=== PATIENT | female | born 1995 ===

== ENCOUNTER 2024-09-20 09:00 | Inpatient (IN) ==
[2024-09-20 10:42] LABS: Hematocrit (blood only) 37.5 % (37.0-47.0); Hemoglobin 12.3 g/dl (12.0-16.0); Mean Corpuscular Hemoglobin 28.3 pg (25.0-34.0); Mean Corpuscular Hgb Conc 32.8 g/dL (32.0-36.0); Mean Corpuscular Volume 86.4 fL (80.0-100.0); Mean Platelet Volume 10.6 fL (9.4-12.4); Platelet Count 244 K/uL (130-400); RDW Standard Deviation 46.8 fL (36.4-46.3); Red Blood Count 4.34 M/uL (4.20-5.40); White Blood Count 11.39 K/ul (4.8-10.8)
[2024-09-20 10:44] LABS: Albumin Globulin Ratio 1.2 (0.9-2); Albumin Level 3.5 gm/dl (3.4-5.0); BUN Creatinine Ratio 12.9 (10-20); Bilirubin,Total 0.3 mg/dl (0.2-1.0); Creatinine Clr Calc Pharmacy 154.7 ml/min; Total Protein 6.5 gm/dl (6.0-8.3); Uric Acid 4.8 mg/dl (2.6-7.2)
[2024-09-20] MEDS: LABETALOL HCL IV 5 MG/ML 20ML IV STA ×3 (10:53→12:18)
[2024-09-20 10:54] LABS: Total Protein Urine Random 5.4 mg/dl (0-11.9)
--- NOTE | 2024-09-20 10:57 | History & Physical Report ---
Date of Service September 20, 2024 Assessment & Plan (1) History of section: Plan: Repeat with tubal planned (2) Gestational hypertension affecting second : Admission and Anticipated Discharge Date Admission Date: September 20, 2024 History of Present Illness Chief Complaint: previous with contractions Primary Care Provider: ERMIAS PCP 29 F [id number] sent from the office with contractions and gestational hypertetnsion Allergies Allergy/AdvReac Type Severity Reaction Status Date / Time No Known Allergies Allergy Verified 09/18/24 12:17 Home Medications Medication Instructions Recorded Confirmed Type Vitamin C With Iron 1 tab PO BID 09/18/24 09/20/24 History aspirin 81 mg capsule 81 mg PO DAILY 09/18/24 09/20/24 History calcium carbonate (Tums) 200 mg PO BID PRN Acid Reflux 09/18/24 09/20/24 History cyanocobalamin (vitamin B-12) 1,000 mcg PO DAILY 09/18/24 09/20/24 History 1,000 mcg tablet escitalopram oxalate 5 mg tablet 5 mg PO QAM 09/18/24 09/20/24 History (Lexapro) [id number] 1 mg 1 tab PO DAILY 09/18/24 09/20/24 History tablet Patient History Medical History Acid reflux during Anemia during ADHD Anxiety Borderline high blood pressure no cards>"sometimes bp is elevated" Surgical History History of postoperative nausea and vomiting History of section x 1 [place] teeth removed Family History Other No family history of adverse response to anesthesia Social History Smoking Status: Never smoker Second Hand Exposure: No; Hx Alcohol Use: No Hx Substance Use: No Preferred Language: Croatian Communication Ability: Effective Parking Lot Attendant And Cashier Required: No Beliefs That Will Affect Care: None marital status: Current Living Situation: Spouse Current Living Situation Comment: and son and step-daughter Other Information That Helps Us Care for You: No Feels Safe at Home: Yes Safety Concerns: Feels Safe At This Time Assistive Devices: Contacts and Glasses 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 History neg Review of Systems All systems reviewed & are unremarkable except as noted in HPI & below Physical Exam Constitutional: WD/WN, vitals as above Eyes: PERRL, conjunctivae normal, anicteric sclerae Respiratory: normal respiratory effort, lungs clear to auscultation Cardiovascular: Rate/Rhythm: regular rate and regular rhythm Gastrointestinal (Abdomen): Inspection/Auscultation: abdomen normal to inspection Musculoskeletal: Extremities: extremities normal to inspection Skin: no rashes, warm and dry Neurologic: patellar DTR's 2+ bilat, sensation intact Psychiatric: A+Ox3, euthymic affect Genitourinary: OB Exam Monitor Tracing: + external FHT monitor used, + external uterine monitor used, + category I and + normal FHT variability Results & Data Vital Signs (Past 12 Hours) Vital Signs Temp Pulse Resp BP O2 Del Method 09/20/24 10:51 86 168/97 H 09/20/24 10:38 18 09/20/24 10:38 37.6 C H 18 09/20/24 10:37 101 H 176/104 H 09/20/24 09:54 93 H 147/93 H 09/20/24 09:53 86 141/83 H 09/20/24 09:39 37.3 C 94 H 18 151/100 H Room Air 09/20/24 09:37 94 H 151/100 H 09/20/24 09:27 97 H 165/105 H Laboratory Results Laboratory Results - last 72 hr 09/20/24 09/20/24 10:09 10:10 WBC 11.39 H RBC 4.34 Hgb 12.3 Hct 37.5 MCV 86.4 MCH 28.3 MCHC 32.8 RDW Std Deviation 46.8 H RDW Coeff of Yan 15.0 H Plt Count 244 MPV 10.6 Sodium 140 Potassium 4.0 Chloride 110 H Carbon Dioxide 20 L Anion Gap 10 BUN 8 Creatinine 0.62 Est Cr Clr Drug Dosing 154.7 eGFR 123.55 BUN/Creatinine Ratio 12.9 Glucose 89 Uric Acid 4.8 Calcium 9.0 Total Bilirubin 0.3 Direct Bilirubin 0.0 AST 15 ALT 10 Alkaline Phosphatase 119 H Lactate Dehydrogenase 169 Total Protein 6.5 Albumin 3.5 Globulin 3.0 Albumin/Globulin Ratio 1.2 U Random Total Protein 5.4 Code Status & VTE Plan VTE Prophylaxis Plan VTE Prophylaxis will be ordered: No Monitoring External Monitor Cat 1
[2024-09-20 11:00] LABS: Creatinine Urine Random 51.4 mg/dl; Protein Creatinine Ratio Urine 0.1 (0-0.2)
[2024-09-20] MEDS ORDERED: LACTATED RINGER'S 1,000 ML IV SCH ×2 (11:00→14:15)
[2024-09-20] MEDS ORDERED: ONDANSETRON INJ 2 MG/ML 2 ML VIAL ONE (11:32)
[2024-09-20] MEDS ORDERED: MoRPHine SULFATE PF 1 MG/ML 10 ML AMP/VIAL ONE (11:32)
[2024-09-20] MEDS ORDERED: PHENYLEPHRINE 100MCG/ML 5ML SYR ONE (11:32)
[2024-09-20] MEDS ORDERED: fentaNYL citrate PF 100 MCG/2 ML VIAL ONE (11:32)
[2024-09-20] MEDS ORDERED: PHENYLEPHRINE HCL 25 MG/250 ML NSS IV ONE (11:32)
[2024-09-20] MEDS ORDERED: DEXAMETHASONE SOD INJ 4 MG/ML VIAL ONE (11:32)
[2024-09-20] MEDS: ACETAMINOPHEN 500 MG TAB PO SCH (11:52)
[2024-09-20] MEDS: MAG SULFATE 6GM BOLUS FROM BAG IV ONE (12:04)
[2024-09-20] MEDS: LACTATED RINGER'S 1,000 ML IV SCH (12:07)
--- NOTE | 2024-09-20 12:07 | Anesthesiology Consultation ---
Date of Service September 20, 2024 Assessment & Plan (1) Encounter for pre-operative examination: Chart Review Chart Review: Acceptable Risk for Surgery and Patient NOT seen in Pre Admission Testing Consults Requested none History Height/Weight Height: 5 ft 3 in Weight: 104.326 kg Allergies Allergy/AdvReac Type Severity Reaction Status Date / Time No Known Allergies Allergy Verified 09/18/24 12:17 Medications Home Medications Medication Instructions Recorded Confirmed Last Taken Vitamin C With Iron 1 tab PO BID 09/18/24 09/20/24 09/20/24 07:00 aspirin 81 mg capsule 81 mg PO DAILY 09/18/24 09/20/24 09/20/24 07:00 calcium carbonate (Tums) 200 mg PO BID PRN Acid Reflux 09/18/24 09/20/24 09/19/24 22:00 cyanocobalamin (vitamin B-12) 1,000 mcg PO DAILY 09/18/24 09/20/24 09/20/24 07:00 1,000 mcg tablet escitalopram oxalate 5 mg tablet 5 mg PO QAM 09/18/24 09/20/24 09/20/24 07:00 (Lexapro) [id number] 1 mg 1 tab PO DAILY 09/18/24 09/20/24 09/19/24 12:00 tablet Active Medications Generic Name Dose Route Start Last Admin Trade Name Freq PRN Reason Stop Dose Admin Acetaminophen 1,000 mg 09/20/24 06:00 09/20/24 11:52 Acetaminophen 500 Mg Tab PO 09/20/24 18:00 1,000 mg PREOP DIAMOND Administration Past Medical History Medical History Acid reflux during Anemia during ADHD Anxiety Borderline high blood pressure no cards>"sometimes bp is elevated" Exercise / Class Metabolic Activity II 4-5 Yardwork/Stairs/Walk up hill Past Family History Family History Other No family history of adverse response to anesthesia Past Surgical History Surgical History History of postoperative nausea and vomiting History of section x 1 [place] teeth removed Social History Smoking Status: Never smoker Hx Alcohol Use: No Hx Substance Use: No substance use type: does not use Physical Exam Vital Signs Last Vital Signs Temp 37.6 C H 09/20/24 10:38 Pulse 92 H 09/20/24 11:48 Resp 18 09/20/24 10:38 BP 138/94 09/20/24 11:48 O2 Del Method Room Air 09/20/24 09:39 Testing Laboratory Results 09/20/24 10:09 09/20/24 10:09 Blood Type O Positive 09/20/24 10:09 Antibody Screen NEGATIVE 09/20/24 10:09
[2024-09-20] MEDS: MAGNESIUM SULFATE / WTR 40 GM/1,000 ML BAG IV SCH (12:27)
[2024-09-20] MEDS: ONDANSETRON INJ 2 MG/ML 2 ML VIAL ONE (12:32)
[2024-09-20] MEDS: ONDANSETRON INJ 2 MG/ML 2 ML VIAL IV STA (12:49)
[2024-09-20] MEDS: ceFAZolin 3000MG 3,000 MG/72.5 ML BAG IV SCH (12:51)
[2024-09-20] MEDS: CITRIC ACID/SODIUM CITRATE 15 ML UDC PO SCH (12:53)
[2024-09-20] MEDS: OXYTOCIN 20 UNITS/1002ML LR IV ONE (13:40)
[2024-09-20] MEDS ORDERED: oxyCODONE HCL IR 5 MG TAB (IMMEDIATE RELEASE) PO PRN (13:44)
[2024-09-20] MEDS ORDERED: NALOXONE HCL 0.08 MG in SYRINGE 1.8 ML IV PRN (13:44)
[2024-09-20] MEDS ORDERED: ePHEDrine sulfate 50 MG/ML AMP IV PRN (13:44)
[2024-09-20] MEDS ORDERED: NALBUPHINE HCL INJ 10 MG/ML AMP IV PRN (13:44)
[2024-09-20] MEDS ORDERED: NALOXONE HCL 1 MG in SODIUM CHLORIDE 0.9% 1,000 ML IV PRN (13:44)
[2024-09-20] MEDS ORDERED: PROMETHAZINE 6.25 MG/50.25 ML BAG IV PRN (13:44)
[2024-09-20] MEDS ORDERED: HYDROmorphone INJ 0.5 MG/0.5 ML SYR IV PRN (13:44)
[2024-09-20] MEDS ORDERED: diphenhydrAMINE 50 MG/ML VIAL IV PRN (13:44)
[2024-09-20] MEDS ORDERED: NALOXONE HCL 0.4 MG/1 ML VIAL/CARP IV PRN (13:44)
[2024-09-20] MEDS ORDERED: DC INTRASPINAL MORPHINE SCH (13:45)
[2024-09-20] MEDS ORDERED: NO NARCOTICS OR SEDATIVES SCH (13:45)
[2024-09-20] MEDS ORDERED: diphenhydrAMINE 50 MG/ML VIAL ONE (14:05)
[2024-09-20] MEDS ORDERED: BENZOCAINE 20% SPRY 85 APPLN/85 GM CAN EXT PRN (14:14)
[2024-09-20] MEDS ORDERED: MAGNESIUM HYDROXIDE SUSP 30 ML UDC PO PRN (14:14)
[2024-09-20] MEDS ORDERED: CALCIUM CARBONATE 500 MG CHEWABLE TAB PO PRN ×2 (14:14→15:55)
[2024-09-20] MEDS ORDERED: SENNA 8.6 MG TAB PO PRN (14:14)
[2024-09-20] MEDS ORDERED: HYDROCORTISONE ACETATE 25 MG SUPP PR PRN (14:14)
[2024-09-20] MEDS: OXYTOCIN 20 UNITS/LR 1,002 ML IV SCH (14:30)
--- NOTE | 2024-09-20 14:39 | Anesthesiology Progress Note ---
Date of Service September 20, 2024 Anesthesia Post Procedure Vital Signs Vital Signs: Temp Pulse Resp BP Pulse Ox O2 Del Method 09/20/24 14:37 76 92 09/20/24 14:36 80 98 09/20/24 14:31 83 111/54 L 99 09/20/24 13:00 18 09/20/24 13:00 94 H 18 134/70 09/20/24 12:50 93 H 18 130/63 09/20/24 12:44 20 09/20/24 12:44 37.1 C 20 09/20/24 12:41 97 H 20 143/70 H 09/20/24 12:31 97 H 140/87 09/20/24 12:31 97 H 18 140/87 09/20/24 12:20 93 H 18 148/77 H 09/20/24 12:18 94 H 186/94 H 09/20/24 12:09 36.8 C 94 H 18 186/94 H 09/20/24 11:48 92 H 138/94 09/20/24 11:48 92 H 138/94 09/20/24 11:45 90 145/96 H 09/20/24 11:30 18 09/20/24 11:30 18 09/20/24 11:30 16 09/20/24 11:30 16 09/20/24 11:29 89 161/89 H 09/20/24 11:28 89 161/89 H 09/20/24 11:18 88 174/105 H 09/20/24 11:09 91 H 156/94 H 09/20/24 11:06 91 H 156/94 H 09/20/24 10:53 86 168/97 H 09/20/24 10:51 86 168/97 H 09/20/24 10:38 18 09/20/24 10:38 37.6 C H 18 09/20/24 10:37 101 H 176/104 H 09/20/24 09:54 93 H 147/93 H 09/20/24 09:53 86 141/83 H 09/20/24 09:39 37.3 C 94 H 18 151/100 H Room Air 09/20/24 09:37 94 H 151/100 H 09/20/24 09:27 97 H 165/105 H Transfer of Care Handoff Completed per policy Notes Mental Status: alert / awake / arousable and participated in evaluation Patient Amnestic to Procedure: No Nausea / Vomiting: adequately controlled Pain: adequately controlled Airway Patency, RR, SpO2: stable & adequate BP & HR: stable & adequate Hydration State: stable & adequate Neuraxial Anesthesia: was administered and sensory block is resolving Anesthetic Complications: no major complications apparent and Pt Satisfied with anesthetic care
[2024-09-20] MEDS: DIPHTHER/TETAN/PERTUS Vaccine (Tdap, Adol/Adult) 0.5mL IM ONE (14:52)
--- NOTE | 2024-09-20 14:52 | Post Operative Brief Note ---
Immediate Post Op Note Date of Surgery September 20, 2024 Pre & Post Diagnosis Operation Date: 09/20/24 13:30 Pre-Op Diagnosis: 1.Term elective repeat ceasaren section 2. Desires voluntary sterilzation 3. Pre eclampisa with severe features Post-Op Diagnosis: same as preoperative. I identified the patient and participated in the time-out.: Yes Procedure Operation Date: 09/20/24 13:30 Actual Procedures p Section in LD for LFC @ on 09/20/24 with bilateral tubal ligation and removal(Bilateral) - Madhav Lundberg MD Surgeon Madhav Lundberg MD Staff Counsel KAYODE Joya Estimated Blood Loss 629 Findings Consistent with Post-Op Diagnosis live female Apgars 8/9 weight 7 lbs. 14 oz. nuchal cord x1 Fluids LR 800 ml. Specimens Placenta bilateral fallopian tubes Drains Victor Catheter Anesthesia Type Spinal Complications none Disposition Accompanied Patient To Recovery: Yes Overlapping Procedure I was present for: the critical portions of procedure. I was immediately available: during the entire case. Back up surgeon: was not required during procedure.
[2024-09-20] MEDS: KETOROLAC 30 MG/ML VIAL IV SCH (14:53)
--- NOTE | 2024-09-20 15:10 | Operative Report ---
Post Operative Report Pre & Post Diagnosis Operation Date: 09/20/24 13:30 Pre-Op Diagnosis: 1.Term elective repeat ceasaren section 2. Desires voluntary sterilzation 3. Pre eclampisa with severe features Post-Op Diagnosis: same as preoperative. I identified the patient and participated in the time-out.: Yes Procedure Operation Date: 09/20/24 13:30 Actual Procedures p Section in LD for LFC @ on 09/20/24 with bilateral tubal ligation and removal(Bilateral) - Madhav Lundberg MD Surgeon Madhav Lundberg MD Help Desk Supervisor KAYODE Joya Estimated Blood Loss 629 Findings Consistent with Post-Op Diagnosis Live female vertex presentation Apgars 8 and 9 weight 7 pounds 14 ounces nuchal cord x 1 Fluids LR 800 mL Specimens 1 placenta 2 bilateral fallopian tubes Drains None Anesthesia Type Spinal Complications None Disposition Accompanied Patient To Recovery: Yes Indications Term elective repeat section, voluntary sterilization and preeclampsia with severe features Description of Procedure Under satisfactory spinal anesthesia the patient was prepped and draped in the usual sterile fashion. A timeout was then called. Antibiotics were given preop. A low Pfannenstiel incision was then made carrying the incision down through her prior incision into the abdominal cavity in successive layers without difficulty. Upon entering into the peritoneal cavity bladder flap was developed with sharp dissection using Metzenbaum scissors. The peritoneum was stretched bladder blade was then entered a low segment transverse incision over the lower uterine segment was made after a bladder flap was made. Delivery was accomplished from the vertex presentation with clear fluid noted upon rupture delivering a live female with a nuchal cord x 1 which was reduced at time of delivery of the head delayed cord clamping Apgars 8 and 9 weight 7 pounds 14 ounces. Cord blood was obtained placenta was then manually removed and submitted to pathology the uterus was then exteriorized ring forceps were placed on both right and left side of the uterus at the angles. The interior the uterus was cleaned of all clots and debris with a lap pad. The uterus was closed in a single layer closure with 0 Vicryl suture in a continuous interlocking fashion. Tubes ovaries bilaterally were found to be within normal limits. The patient was once more consented for a bilateral salpingectomy. Usi ng the hand-held LigaSure first the right and then the left tube were serially ligated from the pedicle without difficulty. This was then inspected and no active bleeding was noted. The uterus was placed back into the normal anatomical position. The muscle was then reapproximated with 2 [id number] 0 Vicryl sutures. The fascia was then reapproximated with 0 Vicryl suture in a continuous fashion. Subcuticular layer was then reapproximated with 3-0 plain suture interrupted. And the skin was then reapproximated with 4-0 Monocryl suture subcuticular stitch. Steri-Strips and Telfa were then applied to the wound. Clear urine was noted from the Victor total 225 mL. Total fluids 800 mL and QBL is 629 mL. The final sponge ,needle and instrument count were found to be correct and the patient was then placed supine on a stretcher and she was moved to the recovery room in stable condition. I attest to the content of the Intraoperative Record and any orders documented therein. Any exceptions are noted below. Please note that Sheridan Lord was needed to help provide retraction closure of the uterus and abdomen
[2024-09-20] MEDS: SIMETHICONE 80 MG CHEW PO SCH (17:23)
[2024-09-20] MEDS: ONDANSETRON INJ 2 MG/ML 2 ML VIAL IV PRN (19:01)
[2024-09-20] MEDS: ACETAMINOPHEN 325 MG TAB PO SCH (20:15)
[2024-09-20] MEDS: DOCUSATE SODIUM 100 MG CAP PO SCH (21:54)
[2024-09-20] MEDS: FERROUS FUMARATE/ASCORBIC ACID 65 MG CAPCR PO SCH (21:54)
--- OUTSIDE RECORDS SUMMARY | 2024-09-20 22:28 | External Medical Summary ---
Author Name Unknown Address Unknown Organization [id number] [id number] [place] [address] Laboratory Report Ordering Provider Test Date Status JEREMI VILLA 09/04/2024 09:10:00 Final Observation Date Value Abnormality Reference (Units ) Status Color of Urine by Auto 09/04/2024 09:10:00 Yellow Light Yellow, Yellow Final Clarity, Urine 09/04/2024 09:10:00 Clear Clear Final Glucose [Mass/volume] in Urine by Automated test strip 09/04/2024 09:10:00 Negative Negative (mg/dL) Final Bilirubin.total [Presence] in Urine by Automated test strip 09/04/2024 09:10:00 Negative Negative Final Ketones [Mass/volume] in Urine by Automated test strip 09/04/2024 09:10:00 Negative Negative (mg/dL) Final Specific gravity, Urine 09/04/2024 09:10:00 1.015 1.003-1.030 Final Hemoglobin [Presence] in Urine by Automated test strip 09/04/2024 09:10:00 Negative Negative Final pH, Urine 09/04/2024 09:10:00 7.0 5.0, 5.5, 6.0, 6.5, 7.0, 7.5 (units) Final Protein [Mass/volume] in Urine by Automated test strip 09/04/2024 09:10:00 Negative Negative (mg/dL) Final Urobilinogen, Urine 09/04/2024 09:10:00 0.2 0.2, 1.0 (mg/dL) Final Nitrite [Presence] in Urine by Automated test strip 09/04/2024 09:10:00 Negative Negative Final Leukocyte esterase [Presence] in Urine by Automated test strip 09/04/2024 09:10:00 Small Abnormal Negative Final Performing Location [facility] [place] [id number]
--- OUTSIDE RECORDS SUMMARY | 2024-09-20 22:28 | External Medical Summary | Summary of Care ---
Author Name Unknown Organization [facility] Address [address] [place] [address] Phone [phone] Care Team Providers Care Skin Drier Name Role Phone Unavailable Primary Care Provider Unavailabl e Reason for Visit * Reason Comments Return Visit Encounter Details Date Type Department Care Team (Late st Contact Info) Description 08/25/2024 8:30 AM EDT Office Visit Gynecology/Obstetric [facility] [address] [place] [id number] Ty Dodson MD [address] [place] [phone] Depression complicating , antepartum*; History of gestational hypertension; History of section complicating ; Obesity in , antepartum; Supervision of other normal , antepartum; Antepartum anemia complicating Allergies No known active allergiesdocumented as of this encounter (statuses as of 08/25/2024) Medications Medication Sig Dispensed Refills Start Date End Date Status Escitalopram Oxalate 5 MG Oral Tablet (Lexapro) Take 1 Tablet by mouth in the morning. Active 19 29-1 MG Oral Tablet Chewable Take by mouth. Active Methylphenidate HCl ER (OSM) 36 MG Oral Tablet Extended Release (Concerta) Take 1 Tablet by mouth in the morning. Active Aspirin 81 MG Oral Tablet Delayed Release Take 1 Tablet by mouth in the morning. Active Iron-Vitamin C 65-125 MG Oral Tablet (Vitron C)Indications:Antepart um anemia complicating Take 1 Tablet by mouth in the morning and 1 Tablet before bedtime. 60 Tablet 3 07/07/2024 Active Vitamin B-12 1000 MCG Oral Tablet (Cyanocobalamin)Indica tions:Antepartum anemia complicating Take 1 Tablet by mouth in the morning. 30 Tablet 5 08/24/2024 Active documented as of this encounter (statuses as of 08/25/2024) Active Problems Problem Noted Date Diagnosed Date Antepartum anemia complicating 024 Supervision of other normal , antepartu 03/30/2024 Last Assessment & Plan: -low risk Qnatal Obesity in , antepartum 03/06/2024 Overview: Pre gravid BMI: 35.4 Class 2 obesity Recommend low dose ASA daily 1 hour GTT ordered, not yet completed to date Baseline Preeclampsia Labs Lab Results Component Value Date/Time PLT 291 02/28/2024 03:27 PM PROTEIN/ CREATININE RATIO, URINE - [facility] 74 02/28/2024 03:32 PM Last Assessment & Plan: She presents for follow-up of growth secondary to class II obesity. She has a history of depression, history of gestational hypertension and previous C- section. Today's ultrasound notes the following: The estimated weight is appropriate for gestational age in the 56th percentile. The visualized anatomy is unremarkable in appearance. The ANTONIA is normal. Depression complicating , antepartum Overview: History of post depression in 2020 Currently on Lexapro 5mg daily Reports a stable mood in . Denies any suicidal or homicidal ideation. Reports she has a good support system at home. Last Assessment & Plan: -Mood stable, no acute concerns History of gestational hypertension 02/29/2024 Overview: History of gestational hypertension First , 2020, induced at 39 weeks Currently no BP medications Recommend daily low dose ASA Baseline Preeclampsia Labs Lab Results Component Value Date/Time PLT 291 02/28/2024 03:27 PM PROTEIN/ CREATININE RATIO, URINE - [facility] 74 02/28/2024 03:32 PM BP Readings from Last 5 Encounters: No data found for BP Last Assessment & Plan: CONSIDERATIONS: Explained to patient that in a woman who has always had normal blood pressures, gestational hypertension (GHTN) is defined as persistent elevations in her BP after 20 weeks gestation. Elevated BP is defined as greater than or equal to 140mmHg systolic or greater than 90mmHg diastolic on two separate occasions at least 4 hours apart after 20 weeks gestation. Explained to patient that women with hypertension during are at significantly increased risk for placental abruption, pre-eclampsia/eclampsia, delivery, gestational diabetes, growth restriction, stillbirth, delivery, hemorrhage, and maternal morbidity. These risks are related to the severity of the hypertension RECOMMENDATIONS: Recommend patient be followed clinically. Also recommend labwork with AST/ALT and platelets, and urine protein screen. If diagnosed with gestational hypertension recommend Maternal Medicine ultrasound for growth within 1 week of GHTN diagnosis and then every 4 weeks thereafter. Reviewed that GHTN, pre-eclampsia and HELLP are not preventable conditions. There is some evidence that daily ASA 81mg may decrease the risk for recurrence in patients with additional risk factors we recommend that proceed with starting this therapy at 13 weeks. Class 2 obesity 02/29/2024 Overview: Pre-gravid BMI 35 History of section complicating pregnan cy 02/29/2024 Overview: 2020: primary due to failure to progress 2023 plan: undecided Last Assessment & Plan: CONSIDERATIONS: Reviewed that patients with a history of a previous section are at increased risk in subsequent pregnancies for abnormal placentation (such as previa, acreta, increta, percreta), uterine rupture, abdominal adhesions (which increases the associated surgical risks of injury to adjacent organs, length of procedure, and increased blood loss), and other incision-related complications (such as hernia, rectal muscle diastasis). These risks increase linearly with the number of previous sections performed. carries a lower risk of hemorrhage and infection than delivery. It also generally involves a shorter hospital admission as well as a less painful and shorter recovery than delivery. The risks of uterine rupture are increased for at 0.2 to 1.5% with prior low transverse uterine incision and up to 10% with prior classical incision. In the event of uterine rupture there is a risk of maternal injury that may require a blood transfusion, hysterectomy, damage to nearby organs and even maternal . There is also a 10 to 25% risk of significant adverse sequelae which includes or permanent injury in 10/999 's. The chances of successful increases with any prior successful deliveries. RECOMMENDATIONS: Routine repeat section is recommended to be scheduled between 39-40 weeks gestation. As per [employer]'s 2010 practice bulletin (reaffirmed 2015) regarding offering of trial of labor after delivery, the risks and benefits should be discussed between the patient and her primary OB provider and ultimately agreed upon between these parties and documented as such. Any attempt at should be undertaken at a facility capable of emergent delivery. The following factors are NOT contraindications to offering a trial of labor after delivery: a. Two prior deliveries b. Suspected macrosomia c. Gestation beyond 40 weeks d. History of previous low vertical uterine incision e. Twin gestation (if only one prior ) f. One delivery with an unknown uterine scar type (unless there is a high clinical suspicion of a previous classical uterine incision) Induction of labor for maternal or indications is an option for women undergoing Trial of Labor After . Misoprostol should not be used for cervical ripening or induction of labor. Estimated Date of Delivery Comme nts Yes 09/29/2024 Based on last me nstrual period of 12/24/2023 documented as of this encounter (statuses as of 08/25/2024) Resolved Problems Problem Noted Date Diagnosed Date Resolved Date Abnormal GTT (glucose tolerance test) 04/01/2024 07/07/2024 Overview: Failed 1 hour GTT at 13 weeks. 3 hour GTT ordered. with 10 completed weeks gestation 03/07/2024 05/25/2024 History of positive PPD 02/29/2024 05/0 04/2024 Supervision of high risk pre gnancy in first trimester 02/29/2024 05/25/2024 documented as of this encounter (statuses as of 08/25/2024) Immunizations Name Administration Dates Next Due TDAP, Age 7 and older, IM (Adacel) 07/14/2024 documented as of this encounter Social History Tobacco Use Types Packs/Day Years Used Date Smoking Tobacco: Never Smokeless Tobacco: Never Alcohol Use Standard Drinks/Week Comments Not Currently 0 (1 standard drink = 0.6 oz pur e alcohol) Hunger Vital Sign Answer Date Recorded Within the past 12 months, y ou worried that your food would run out before you got the money to buy more. Never true 04/14/20 24 Within the past 12 months, t he food you bought just didn't last and you didn't have money to get more. Never true 04/14/2024 [place] Depression Scale Answer Date Recorded [place] Depression Scale Total 1 08/23/2024 The thought of harming myself has occurred to me . Never 08/23/2024 Childcare Answer Date Recorded Do you feel overwhelmed with taking care of a child, family member or friend? No 04/14/2024 Does your family need help f inding childcare? (Household - for ages 0-17 years) Not on file 04/14/2024 Clothing Answer Date Recorded Have you been unable to get clothing when it was really needed? No 04/14/2024 Is your family able to get c lothes or diapers when needed? (Household - for ages 0-17 years) Not on file 04/14/2024 Personal Safety Answer Date Recorded Do you feel unsafe or have concerns for your saf ety? No 04/14/2024 Do you have concerns for you r family's safety? (Household - for ages 0-17 years) Not on file 04/14/2024 Utilities Answer Date Recorded Do you have trouble paying y our heating, water, or electric bill? No 04/14/2024 Is your family able to pay t he heat, water, or electric bill? (Household - for ages 0-17 years) Not on file 04/14/2024 Does your family have access to good internet? (Household - for ages 0-17 years) Not on file 04/14/2024 Employment Status Answer Date Recorded Are you unemployed or without regular income? No 04/14/2024 Does the household have a re gular source of income? (Household - for ages 0-17 years) Not on file 04/14/2024 Social Connections Answer Date Recorded How often do you feel lonely or isolated from th ose around you? Never 04/14/2024 Financial Resource Strain Answer Date R ecorded Do you have any trouble payi ng for your medications, or do you think you might in the future? No 04/14/2024 Does your family have troubl e paying for medicine? (Household - for ages 0-17 years) Not on file 04/14/2024 Transportation Needs Answer Date Record ed READ ONLY Do you have troubl e getting a ride to medical visits or work? Never True 04/14/2024 Does your family have a hard time getting a ride to doctors visits? (Household - for ages 0-17 years) Not on file 04/14/2024 Has lack of transportation k ept you from medical appointments, meetings, work, or from getting things needed for daily living? Check all that apply. No 04/14/2024 Do you (or your family) have trouble finding or paying for a ride (transportation)? (Household - for ages 0-17 years) Not on file 04/14/2024 Housing Stability Answer Date Recorded Do you currently live in a s helter or have no steady place to sleep at night? No 04/14/2024 READ ONLY Do you think you a re at risk of becoming homeless? No 04/14/2024 Does your family worry about paying for your home or becoming homeless? (Household - for ages 0-17 years) Not on file 0 04/14/2024 Are you homeless or worried that you might be in the future? No 04/14/2024 Are you (or your family) allie eless or worried that you might be in the future? (Household - for ages 0-17 years) Not on file Food Insecurity Answer Date Recorded Do you need food for this week? No 04/14/2024 Are you able to get enough f ood for your family? (Household - for ages 0-17 years) Not on file 04/14/2024 Does your family need food t his week? (Household - for ages 0-17 years) Not on file 04/14/2024 Do you always have enough fo od for your family? (Household - for ages 0-17 years) Not on file 04/14/2024 Estimated Date of Delivery Comme nts Yes 09/29/2024 Based on last me nstrual period of 12/24/2023 Sex and Gender Information Value Date Recorded Sex Assigned at Female 02/10/2024 9:32 AM EDT Gender Identity Female 02/10/2024 9:32 AM EDT Sexual Orientation Straight 02/10/2024 9: 32 AM EDT Job Start Date Occupation Industry Not on file Not on file Not on file documented as of this encounter Last Filed Vital Signs Vital Sign Reading Time Taken Comments Blood Pressure 128/82 08/25/2024 8:58 AM EDT Pulse - - Temperature - - Respiratory Rate - - Oxygen Saturation - - Inhaled Oxygen Concentration - - Weight - - Height 160 cm (5' 3") 08/25/2024 8:58 AM EDT Body Mass Index - - documented in this encounter Progress Notes * Ty Dodson MD - 08/25/2024 9:11 AM EDT Pt doing well No complaints Stable BP today Hx of GHT Car for repeat c/sec on 09/27/24 * Sheela Velasquez LPN - 08/25/2024 8:56 AM EDT 35w0d Pt is here for repeat BP check documented in this encounter Plan of Treatment Upcoming Encounters Date Type Department Care Team (Late st Contact Info) Description 09/04/2024 8:30 AM EST Office Visit Gynecology/Obstetrics [facility] [address] [place] [phone] Ty Dodson MD [address] [place] [phone] 09/07/2024 8:00 AM EST Imaging [facility] [address] [place] [phone] 10/04/2024 10:30 AM EST Office Visit Gynecology/Obstetrics [facility] [address] [place] [address] [place], LarisaNEYDA Nunn [address] [place] [address] Health Maintenance Due Date Last Done Comments Depression Monitoring 2007 Hepatitis B Vaccine (1 of 3 - 19+ 3-dose series) 2014 COVID-19 Vaccine (1 - 2023-2 5 season) 2024 Influenza Vaccine (FLU shot) (#1) 2024 Pap Smear 02/27/2027 02/28/2024 DTap/Tdap Vaccines (2 - Td o r Tdap) 07/14/2034 07/14/2024 HPV (Gardasil) Vaccine Aged Out No lo nger eligible based on patient's age to complete this topic MENINGOCOCCAL (MENACTRA/MENVEO) Aged Out No longer eligible based on patient's age to complete this topic Pneumococcal Vaccine: Pediat rics (0 to 5 Years) and At-Risk Patients (6 to 64 Years) Aged Out No longer eligi ble based on patient's age to complete this topic documented as of this encounter Medical Devices Not on filedocumented as of this encounter Visit Diagnoses Diagnosis Depression complicating , antepartum- Primary Mental disorders of mother, antepartum History of gestational hypertension History of section complicating Previous delivery, unspecified as to episode of care or not applicable Obesity in , antepartum Obesity complicating , childbirth, or the puerperium, antepartum condition or complication Supervision of other normal , antepartum Antepartum anemia complicating Anemia, antepartum documented in this encounter
--- OUTSIDE RECORDS SUMMARY | 2024-09-20 22:28 | External Medical Summary | Summary of Care ---
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 Name Role Phone Unavailable Primary Care Provider Unavailabl e Encounter Details Date Type Department Care Team (Late st Contact Info) Description 09/07/2024 8:00 AM EST Office Visit [facility], [address] [address] Lacey Weaver, DO [address] [place], [place] [id number] Obesity in , antepartum*; Ultrasound for screening for growth restriction; 36 weeks gestation of Allergies No known active allergiesdocumented as of this encounter (statuses as of 09/07/2024) Medications Escitalopram Oxalate 5 MG Oral Tablet (Lexapro) [...] Iron-Vitamin C 65-125 MG Oral Tablet (Vitron C)Indications:Ant epartum anemia complicating Take 1 Tablet by mouth in the morning and 1 Tablet before bedtime. 60 Tablet 3 4 Active Vitamin B-12 1000 MCG Oral Tablet (Cyanocobalamin)I ndications:Antepa rtum anemia complicating Take 1 Tablet by mouth in the morning. 30 Tablet 5 Active documented as of this encounter (statuses as of 09/07/2024) Active Problems Problem Noted Date Diagnosed Date Antepartum anemia complicating 024 Supervision of other normal , antepartu m 03/30/2024 Assessment & Plan (05/15/2024 10:24 AM EDT): -low risk Qnatal Obesity in , antepartum 03/06/2024 Overview (03/06/2024): Pre gravid BMI: 35.4 Class 2 obesity Recommend low dose ASA daily 1 hour GTT ordered, not yet completed to date Baseline Preeclampsia Labs Lab Results Component Value Date/Time PLT 291 02/28/2024 03:27 PM PROTEIN/ CREATININE RATIO, URINE - [facility] 74 02/28/2024 03:32 PM Assessment & Plan (07/13/2024 9:12 AM EDT): She presents for follow-up of growth secondary to class II obesity. She has a history of depression, history of gestational hypertension and previous C- section. Today's ultrasound notes the following: The estimated weight is appropriate for gestational age in the 56th percentile. The visualized anatomy is unremarkable in appearance. The ANTONIA is normal. Assessment & Plan (05/15/2024 10:24 AM EDT): -Early 1-hr GCT 147, 3-hr OGTT 1/4 elevated -Repeat OGTT at 26-28 weeks Assessment & Plan (03/07/2024 12:29 PM EDT): CONSIDERATIONS: Discussed obstetrical risks associated with class II obesity (pre- BMI of 35 to 39.9) Reviewed that the accuracy of ultrasound at diagnosing anomalies is significantly decreased for women with an increased BMI. RECOMMENDATIONS: Recommend restricting weight gain during to 11-20 pounds. Patient should be referred for a nutrition consult. Recommend evaluation for signs and symptoms (snoring, excessive daytime sleepiness witnessed apnea or unexplained hypoxia) of obstructive sleep apnea. If any of these are present, referral to Sleep Medicine specialist for further evaluation should be considered. Recommend performing gestational diabetes mellitus screen now (if not performed at first visit) and repeat again at 26-28 weeks if early screen is normal. Recommend Maternal- Medicine ultrasound for anatomy at 20 weeks and for growth every 4 weeks thereafter. For patients with Class 2 obesity, we recommend weekly surveillance starting at 37 weeks. Depression complicating , antepartum Overview (03/07/2024): History of post depression in 2020 Currently on Lexapro 5mg daily Reports a stable mood in . Denies any suicidal or homicidal ideation. Reports she has a good support system at home. Assessment & Plan (05/15/2024 10:43 AM EDT): -Mood stable, no acute concerns Assessment & Plan (03/07/2024 12:29 PM EDT): ANXIETY AND DEPRESSION CONSIDERATIONS: Untreated maternal anxiety and depression may be associated with an increased risk of multiple poor obstetrical outcomes including miscarriages, low weight, and delivery. Women with a history of anxiety or depression are at risk for recurrence both during and/or the period. Studies of first-trimester SSRI exposure do not demonstrate consistent data to support an increased risk for structural malformations. Anti-anxiety or depression medications have been associated with transient effects (withdrawal syndrome). RECOMMENDATIONS: Mental illness can and should be treated during when the benefits of treatment outweigh potential risks. Referral to behavioral health services as clinically indicated. History of gestational hypertension 02/29/2024 Overview (03/07/2024): History of gestational hypertension First , 2020, induced at 39 weeks Currently no BP medications Recommend daily low dose ASA Baseline Preeclampsia Labs Lab Results Component Value Date/Time PLT 291 02/28/2024 03:27 PM PROTEIN/ CREATININE RATIO, URINE - [facility] 74 02/28/2024 03:32 PM BP Readings from Last 5 Encounters: No data found for BP Assessment & Plan (03/07/2024 12:30 PM EDT): CONSIDERATIONS: Explained to patient that in a [...] at 13 weeks. Class 2 obesity 02/29/2024 Overview (02/29/2024): Pre-gravid BMI 35 History of section complicating pregnan cy 02/29/2024 Overview (03/07/2024): 2020: primary due to failure to progress 2023 plan: undecided Assessment & Plan (03/07/2024 12:50 PM EDT): CONSIDERATIONS: Reviewed that patients with a history [...] scheduled between 39-40 weeks gestation. As per [employer]'s 2010 practice [...] as of this encounter (statuses as of 09/07/2024) Resolved Problems Problem Noted Date Diagnosed Date Resolved Date Abnormal GTT (glucose tolerance test) 04/01/2024 07/07/2024 Overview (04/01/2024): Failed 1 hour GTT at 13 weeks. 3 hour GTT ordered. with 10 completed weeks gestation 03/07/2024 05/25/2024 History of positive PPD 02/29/2024 05/0 04/2024 Supervision of high risk pre gnancy in first trimester 02/29/2024 05/25/2024 documented as of this encounter (statuses as of 09/07/2024) Immunizations Name Administration Dates Next Due TDAP, [...] money to get more. Never true 04/14/2024 [place] Depression Scale Answer Date Recorded [place] Depression Scale Total 1 08/23/2024 The thought [...] Assigned at Female 02/10/2024 9:32 AM EDT Legal Sex Female 9:44 AM EDT Gender Identity Female 02/10/2024 9:32 AM EDT Sexual Orientation Straight 02/10/2024 9: 32 AM EDT documented as of this encounter Progress Notes * Lacey Weaver DO - 09/07/2024 1:31 PM EST Kalie presented today at 36w6d for an ultrasound for the following indications: Obesity in , antepartum Ultrasound for screening for growth restriction 36 weeks gestation of Ultrasound summary: Patient presented at 36w 6d for growth assessment. Normal growth with EFW 3143 g at 64%ile. Normal ANTONIA at 11.9 cm. Cephalic presentation. I reviewed the ultrasound images. Kalie was given the opportunity to meet with me if she had any questions. Please refer to the ultrasound report for additional details about today's ultrasound examination. RECOMMENDATIONS: Follow up with MFM for ultrasound as clinically indicated. Weekly NSTs. See prior formal MFM consultation note. Thank you for allowing us to participate in the care of this patient. Please call with any questions. Lacey Weaver DO 09/07/2024 1:31 PM documented in this encounter Plan of Treatment Upcoming Encounters Date Type Department Care Team (Late st Contact Info) Description 09/13/2024 7:45 AM EST Office Visit Gynecology/Obstetrics [facility] [address] [place] [address] Sheridan Lord PA-C [address] [place] [phone] 10/04/2024 10:30 AM EST Office Visit Gynecology/Obstetrics [facility] [address] [place] [address] Larisa Bartlett CRNP [address] [place] [phone] Health Maintenance Due Date Last Done Comments [...] as of this encounter Visit Diagnoses Diagnosis Obesity in , antepartum- Primary Obesity complicating , childbirth, or the puerperium, antepartum condition or complication History of gestational hypertension Depression complicating , antepartum Mental disorders of mother, antepartum History of section complicating Previous delivery, unspecified as to episode of care or not applicable Supervision of high risk in first trimester Unspecified high-risk with 10 completed weeks gestation Obesity in , antepartum- Primary Obesity complicating , childbirth, or the puerperium, antepartum condition or complication Class 2 obesity Supervision of other normal , antepartum History of gestational hypertension Depression complicating , antepartum Mental disorders of mother, antepartum 20 weeks gestation of state, incidental Encounter for anatomic survey Obesity in , antepartum- Primary Obesity complicating , childbirth, or the puerperium, antepartum condition or complication Class 2 obesity History of section complicating Previous delivery, unspecified as to episode of care or not applicable History of gestational hypertension Obesity in , antepartum- Primary Obesity complicating , childbirth, or the puerperium, antepartum condition or complication Ultrasound for screening for growth restriction screening for growth retardation using ultrasonics 36 weeks gestation of state, incidental documented in this encounter
--- OUTSIDE RECORDS SUMMARY | 2024-09-20 22:28 | External Medical Summary ---
Author Name Unknown Address Unknown Organization K01:LAB[facility]AT[facility] - [address] [place] [address] Ave. [address] [place] [id number] Laboratory Report Ordering Provider Test Date Status PEGGY HELLER 08/23/2024 17:15:08 Final Observation Date Value Abnormality Reference (Units ) Status WBC, Total 08/23/2024 17:15:08 10.32 4.00-10.8 0 (K/uL) Final RBC 08/23/2024 17:15:08 3.87 3.85-5.15 (M/uL) Final Hemoglobin 08/23/2024 17:15:08 11.1 Below low normal 12 .0-15.3 (g/dL) Final Anemia reflex testing trigge rs on a HGB < 12.0 for Females and HGB < 13.0 for Males in accordance with the WHO Anemia Guidelines
Anemia reflex testing triggers on a HGB < 12.0 for Females and HGB < 13.0 for Males in accordance with the WHO Anemia Guidelines HCT 08/23/2024 17:15:08 35.1 Below low normal 36. 0-45.2 (%) Final MCV 08/23/2024 17:15:08 90.7 81.5-97.5 (fL) Final MCH 08/23/2024 17:15:08 28.7 27.0-34.0 (pg) Final MCHC 08/23/2024 17:15:08 31.6 32.0-36.0 (g/dL) Final RDW 08/23/2024 17:15:08 14.7 11.5-15.5 (%) Final Platelets 08/23/2024 17:15:08 263 140-400 (K /uL) Final MPV 08/23/2024 17:15:08 11.1 6.6-11.1 ( fL) Final Nucleated erythrocytes/100 leukocytes [Ratio] in Blood by Automated count 08/23/2024 17:15:08 0 <=0 (/100 WBCs) Final Performing Location LAB[facility] - [address] [facility] [address]
--- OUTSIDE RECORDS SUMMARY | 2024-09-20 22:28 | External Medical Summary | Summary of Care ---
Author Name Unknown Organization [facility] Address [address] [address] Phone [phone] Care Team Providers Care Cotton Opener Name Role Phone Unavailable Primary Care Provider Unavailabl e Encounter Details Date Type Department Care Team (Late st Contact Info) Description 08/24/2024 Telephone Gynecology/Obstetrics [facility] [address] [facility] [place] [address] Perri Squires PA-Karen [address] [facility] [place] [address] Allergies No known active allergiesdocumented as of this encounter (statuses as of 08/24/2024) Medications Medication Sig Dispensed Refills Start Date [...] as of this encounter (statuses as of 08/24/2024) Active Problems Problem Noted Date Diagnosed Date Antepartum anemia complicating 024 Supervision of other normal , antepartu m 03/30/2024 Last Assessment & Plan: -low risk [...] scheduled between 39-40 weeks gestation. As per [employer]'s 2010 practice [...] as of this encounter (statuses as of 08/24/2024) Resolved Problems Problem Noted Date Diagnosed Date Resolved Date Abnormal GTT (glucose tolerance test) 04/01/2024 07/07/2024 Overview: Failed 1 hour GTT at 13 weeks. 3 hour GTT ordered. with 10 completed weeks gestation 03/07/2024 05/25/2024 History of positive PPD 02/29/2024 05/0 04/2024 Supervision of high risk pre gnancy in first trimester 02/29/2024 05/25/2024 documented as of this encounter (statuses as of 08/24/2024) Immunizations Name Administration Dates Next Due TDAP, [...] money to get more. Never true 04/14/2024 [place] Depression Scale Answer Date Recorded [place] Depression Scale Total 1 08/23/2024 The thought [...] on file documented as of this encounter Miscellaneous Notes * Telephone Encounter - Hilda Flaherty LPN - 08/24/2024 10:54 AM EDT ----- Message from Perri Squires sent at 08/24/2024 10:22 AM EDT ----- Please inform patient her recent CBC is continuing to show anemia. Her med list shows she is currently prescribed iron supplementation twice daily. Is she taking this as prescribed? If she is taking BID, please have her increase to TID. Her vitamin B12 is also low. I have sent supplementation to the [facility] in [place] for her to take once daily. We will plan to re-check levels in 4 weeks for improvement. Thanks! Perri Squires PA-C documented in this encounter Plan of Treatment Upcoming Encounters Date Type Department Care Team (Late st Contact Info) Description 08/25/2024 8:30 AM EDT Office Visit Gynecology/Obstetrics [facility]arr[facility]ie [facility] [address] [place] [address] Ty Dodson MD [address] [place] [phone] 09/04/2024 8:30 AM EST Office Visit Gynecology/Obstetrics Zackerycarlie Canaless [address] [place] [address] Ty Dodson MD [address] [place] [address] 09/07/2024 8:00 AM EST Imaging Maternal Medicine Imaging, [facility] [address] [place] [phone] 10/04/2024 10:30 AM EST Office Visit Gynecology/Obstetrics Zackerycarlie Bryan [address] [place] [address] BackerLarisa CRNP [address] [place] [address] Health Maintenance Due Date Last Done Comments [...]
--- OUTSIDE RECORDS SUMMARY | 2024-09-20 22:28 | External Medical Summary | Summary of Care ---
Author Name Unknown Organization [facility] Address [address] [facility] [address] Phone [phone] Care Team Providers Care Business Development Executive Name Role Phone Unavailable Primary Care Provider Unavailabl e Reason for Visit * Reason Comments Return Visit Pre-Op Testing Encounter Details Date Type Department Care Team (Late st Contact Info) Description 09/04/2024 8:30 AM EST Office Visit Gynecology/Obstetric [facility] [address] [place] [address] Ty Dodson MD [address] [place] [address] Depression complicating , antepartum*; History of gestational hypertension; History of section complicating ; Obesity in , antepartum; Supervision of other normal , antepartum; Antepartum anemia complicating Allergies No known active allergiesdocumented as of this encounter (statuses as of 09/04/2024) Medications Escitalopram Oxalate 5 MG Oral Tablet [...] mouth in the morning. 30 Tablet 5 4 Active documented as of this encounter (statuses as of 09/04/2024) Active Problems Problem Noted Date Diagnosed Date [...] scheduled between 39-40 weeks gestation. As per [employer]'s 2010 practice [...] as of this encounter (statuses as of 09/04/2024) Resolved Problems Problem Noted Date Diagnosed Date Resolved Date Abnormal GTT (glucose tolerance test) 04/01/2024 07/07/2024 Overview (04/01/2024): Failed 1 hour GTT at 13 weeks. 3 hour GTT ordered. with 10 completed weeks gestation 03/07/2024 05/25/2024 History of positive PPD 02/29/2024 05/0 04/2024 Supervision of high risk pre gnancy in first trimester 02/29/2024 05/25/2024 documented as of this encounter (statuses as of 09/04/2024) Immunizations Name Administration Dates Next Due TDAP, [...] money to get more. Never true 04/14/2024 [place] Depression Scale Answer Date Recorded [place] Depression Scale Total 1 08/23/2024 The thought [...] AM EDT documented as of this encounter Last Filed Vital Signs Vital Sign Reading Time Taken Comments Blood Pressure 128/88 09/04/2024 8:56 AM EST Pulse - - Temperature 36.5 C (97.7 F) 09/04/2024 8:56 AM ES T Respiratory Rate - - Oxygen Saturation - - Inhaled Oxygen Concentration - - Weight - - Height - - Body Mass Index - - documented in this encounter Progress Notes * Ty Dodson MD - 09/04/2024 9:15 AM EST Pt doing well No complaints Stable BP today Hx of GHT Preop H&P done today documented in this encounter H&P Notes * Ty Dodson MD - 09/04/2024 9:18 AM EST [address] [address] Appt line [phone] Kalie Rosales is a 29 year old year old year old at 36w3d Patient is . Estimated Date of Delivery: 09/29/24 Pt is s/p c/sec for gestational hypertension 3 years ago Wishes to have repeat section and permanent sterilization Patient is here for preop appointment OB History Para Term AB Living 2 1 1 0 0 1 SAB IAB Ectopic Multiple Live Births 0 0 0 0 1 # Outcome Date GA Lbr Goldy/2nd Weight Sex Type Anes PTL Lv 2 Current 1 Term 06/06/21 39w0d 3.388 kg (7 lb 7.5 oz) M CS-LTranv EPI NATHAN Comments: Induced at 39w Complications: Failure to Progress in Second Stage, History of gestational hypertension Obstetric Comments 2020, 2023 FOB #1: Jaswant, age 30, healthy, has one other child 11yo, healthy Date Labor Sex Delivery Anesth Del Comments GA Length Weight Type 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 Denies h/o STDs and abnormal Paps. Her past medical/surgical histories and current medications are recorded in the electronic record. Past Surgical History: Procedure Laterality Date DENTAL SURGERY PROCEDURE NEC MD DELIVERY ONLY 2020 Family History Problem Relation Name Age of Onset Other (Type 2 diabetes) Mother Hypertension Mother Anxiety Disorder Father Hypertension Brother Hypertension Brother No Known Problems Brother No Known Problems Brother History Social History Socioeconomic History Marital status: Spouse name: Not on file Number of children: Not on file Years of education: Not on file Highest education level: Not on file Occupational History Not on file Tobacco Use Smoking status: Never Smokeless tobacco: Never Substance and Sexual Activity Alcohol use: Not Currently Drug use: Never Sexual activity: Yes Partners: Male Other Topics Concern Not on file Social History Narrative Not on file Social Needs Financial Resource Strain: Low Risk (04/14/2024) Financial Resource Strain Do you have any trouble paying for your medications, or do you think you might in the future? (Adult - for ages 18 years and over): No Does your family have trouble paying for medicine? (Household - for ages 0-17 years): Not on file Food Insecurity: No Food Insecurity (04/14/2024) Food Insecurity Do you need food for this week? (Adult - for ages 18 years and over): No Are you able to get enough food for your family? (Household - for ages 0-17 years): Not on file Does your family need food this week? (Household - for ages 0-17 years): Not on file Do you always have enough food for your family? (Household - for ages 0-17 years): Not on file Transportation Needs: No Transportation Needs (04/14/2024) Transportation Needs Do you have trouble getting a ride to medical visits or work? (Adult - for ages 18 years and over):Never True Does your family have a hard time getting a ride to doctors visits? (Household - for ages 0-17 years): Not on file Has lack of transportation kept you from medical appointments, meetings, work, or from getting things needed for daily living? Check all that apply. (Adult - for ages 18 years and over): No Do you (or your family) have trouble finding or paying for a ride (transportation)? (Household - for ages 0-17 years): Not on file Social Connections: Socially Integrated (04/14/2024) Social Connections How often do you feel lonely or isolated from those around you? (Adult - for ages 18 years and over): Never Housing Stability: Low Risk (04/14/2024) Housing Stability Do you currently live in a custodial or have no steady place to sleep at night? (Adult - for ages 18 years and over): No Do you think you are at risk of becoming homeless? (Adult - for ages 18 years and over): No Does your family worry about paying for your home or becoming homeless? (Household - for ages 0-17 years): Not on file Are you homeless or worried that you might be in the future? (Adult - for ages 18 years and over): No Are you (or your family) homeless or worried that you might be in the future? (Household - for ages0-17 years): Not on file Physical Exam: BP 128/88 | Temp 36.5 C (97.7 F) | LMP 12/24/2023 CV: S1, S2. Regular rate and Rhythm Lungs: Clear to auscultation bilaterally. Abdomen: Soft Extremities: Soft non tender calves bilaterally. A/P: 29 year old year old at term Prior c/sec wishes to have repeat c/sec with bilateral salpingectomy We have discussed the risk alternatives and complications of surgery including more surgery to correct complication,risk of anesthesia,infection,damage to internal organs and . We have also discussed the possibility that pt's present situation may not change. Pt is aware and wishes to proceed to surgery. Consent is signed Ty Dodson MD 09/04/2024 9:18 AM documented in this encounter Plan of Treatment Upcoming Encounters Date Type Department Care Team (Late st Contact Info) Description 09/07/2024 8:00 AM EST Imaging Maternal Medicine Imaging, Scott Canaless [address] [place] [address] 09/07/2024 8:00 AM EST Office Visit Automobile Salesman Obstetrics Maternal Medicine, [facility] [address] [place] [address] Lacey Weaver, DO [address] [place] [address] 09/13/2024 7:45 AM EST Office Visit Gynecology/Obstetrics [facility] [address] [facility] [place] [address] Sheridan Lord PA-C [address] [place] [address] 10/04/2024 10:30 AM EST Office Visit Gynecology/Obstetrics Reggie [facility] [address] [place] [address] Larisa Bartlett CRNP [address] [place] [address] Pending Results Name Type Priority Associated Diagnoses Date /Time GROUP B STREP CULTURE/PCR Lab Routine Obesity in , antepartum 09/04/2024 9:47 AM EST Health Maintenance Due Date Last Done Comments Depression Monitoring 2007 Hepatitis B Vaccine (1 of 3 - 19+ 3-dose series) 2014 COVID-19 Vaccine (2023-2 5 season) 2024 Influenza Vaccine (FLU shot) [...] Not on filedocumented as of this encounter Procedures Procedure Name Priority Date/Time Associated Diagnosis Comments URINALYSIS OBSTETRICS, POINT OF CARE [facility] 09/04/2024 9:10 AM EST documented in this encounter Results * (ABNORMAL) URINALYSIS OBSTETRICS, POINT OF CARE (09/04/2024 9:10 AM EST) Color, Urine Yellow Light Yellow, Yellow 09/04/2024 9:13 AM EST [facility] [place] [facility] Clarity, Urine Clear Clear 09/04/2024 9:13 AM EST [facility] [place] [facility] Glucose, Urine Negative Negative mg/dL 09/04/2024 9:13 AM EST [facility] [place] [facility] Bilirubin, Urine Negative Negative 09/04/2024 9:13 AM EST [facility] Ketone, Urine Negative Negative mg/dL 09/04/2024 9:13 AM EST [facility] Specific [place], Urine 1.015 1.003 - 1.030 09/04/2024 9:13 AM EST [facility] Blood, Urine Negative Negative 09/04/2024 9:13 AM EST [facility] [place] [facility] pH, Urine 7.0 5.0, 5.5, 6.0, 6.5, 7.0, 7.5 units 09/04/2024 9:13 AM EST [facility] [place] [facility] Protein, Urine Negative Negative mg/dL 09/04/2024 9:13 AM EST [facility] Urobilinogen, Urine 0.2 0.2, 1.0 mg/dL 09/04/2024 9:13 AM EST [facility] Nitrite, Urine Negative Negative 09/04/2024 9:13 AM EST [facility] Esterase, Urine Small(A) Negative 09/04/2024 9:13 AM EST [facility] Urine 09/04/2024 9:10 AM EST 09/04/2024 9:13 AM EST us Ty Dodson MD LAB POINT OF CARE TE ST DOCKED DEVICE UNSOLICITED RESULTS Final Result [facility] [place] [facility] [address] [place] [id number] documented in this encounter Visit Diagnoses Diagnosis Obesity in [...] or not applicable History of gestational hypertension Depression complicating , antepartum- Primary Mental disorders of mother, antepartum History of gestational hypertension History of section complicating Previous delivery, unspecified as to episode of care or not applicable Obesity in , antepartum Obesity complicating , childbirth, or the puerperium, antepartum condition or complication Supervision of other normal , antepartum Antepartum anemia complicating Anemia, antepartum documented in this encounter"
--- OUTSIDE RECORDS SUMMARY | 2024-09-20 22:28 | External Medical Summary | Summary of Care ---
Author Name Unknown Organization [facility] Address [address] [facility] [place] [address] Phone [phone] Care Team Providers Care Tint Layer Name Role Phone Unavailable Primary Care Provider Unavailabl e Reason for Visit * Reason Comments Return Visit Non Stress Test Encounter Details Date Type Department Care Team (Late st Contact Info) Description 09/13/2024 7:45 AM EST Office Visit Gynecology/Obstetric s Reggie [facility] [address] [place] [address] Sheridan Lord PA-C [address] [place] [address] Supervision of other normal , antepartum*; Depression complicating , antepartum; History of gestational hypertension; History of section complicating ; Obesity in , antepartum; Antepartum anemia complicating Allergies No known active allergiesdocumented as of this encounter (statuses as of 09/13/2024) Medications Escitalopram Oxalate 5 MG Oral Tablet [...] as of this encounter (statuses as of 09/13/2024) Active Problems Problem Noted Date Diagnosed Date [...] scheduled between 39-40 weeks gestation. As per [place] [employer]'s 2010 practice [...] as of this encounter (statuses as of 09/13/2024) Resolved Problems Problem Noted Date Diagnosed Date Resolved Date Abnormal GTT (glucose tolerance test) 04/01/2024 07/07/2024 Overview (04/01/2024): Failed 1 hour GTT at 13 weeks. 3 hour GTT ordered. with 10 completed weeks gestation 03/07/2024 05/25/2024 History of positive PPD 02/29/2024 05/0 04/2024 Supervision of high risk pre gnancy in first trimester 02/29/2024 05/25/2024 documented as of this encounter (statuses as of 09/13/2024) Immunizations Name Administration Dates Next Due TDAP, [...] money to get more. Never true 04/14/2024 [place] Depression Scale Answer Date Recorded [place] Depression Scale Total 1 08/23/2024 The thought [...] Sign Reading Time Taken Comments Blood Pressure - - Pulse - - Temperature - - Respiratory Rate - - Oxygen Saturation - - Inhaled Oxygen Concentration - - Weight 107.4 kg (236 lb 12.8 oz) 09/13/2024 8:12 AM EST Height - - Body Mass Index 41.95 08/25/2024 8:58 AM EDT documented in this encounter Progress Notes * Sheridan Lord PA-C - 09/13/2024 8:19 AM EST 37w5d Woke up in middle of night to use restroom. Peed, was going to let dogs out and felt small isma about quarter size into underwear. It was cleared. She smelled it and didn't smell like urine. Happenedagain after peeing later in the night. Similar appearence. Has peed again but has not reoccurred. Does not feel continuous leaking. Having some mild contractions. Baby is active. No bleeding. ASSESSMENT assessment with Non-stress Test completed on 09/13/2024 at 37.5 weeks gestation for indication of Class 2 obesity heart baseline: 130 bpm Variability: Moderate Decelerations: absent Accelerations: present Contractions: Present q 7-10 minutes NST start time: 09:02 NST stop time: 09:42 NST strip reviewed, interpreted, and approved by OB provider, Sheridan Lord PA-C. NST strip stored in clinic storage file Pelvic exam: External genitalia and vagina anatomy within normal limits, cervix visually close, scant blood and discharge noted in vagina with insertion of speculum, limited visualization with nulliparous spec, it was removed and medium spec reinserted. Blood noted on posterior ectocervix, dried with scopet. No blood from os. No LOF with valsalva, cervix visually closed. ROM plus collected. BME: cl/thick TE to patient after visit. Reviewed ROM plus negative. Labor precautions given. Call with any LOF, VB, regular contractions, decreased FM (<10 movements in 2 hours). RTC in 1 week CALIT/NIDA Lord PA-C * Noreen Landeros CMA - 09/13/2024 8:12 AM EST 37w5d NIDA/NST [place] a small gush of fluid last night after using the restroom. Denies contractions. documented in this encounter Plan of Treatment Upcoming Encounters Date Type Department Care Team (Late st Contact Info) Description 09/20/2024 9:15 AM EST Office Visit Gynecology/Obstetrics [facility] [address] [place] [address] Ty Dodson MD [address] [place] [address] 10/04/2024 10:30 AM EST Office Visit Gynecology/Obstetrics [facility] [address] [place] [address] BackerLarisa CRNP [address] [place] [address] Health Maintenance Due Date Last Done Comments [...] Procedure Name Priority Date/Time Associated Diagnosis Comments RUPTURE OF MEMBRANE STAT 09/13/2024 9:06 AM EST Supervision of other normal , antepartum documented in this encounter Results * RUPTURE OF MEMBRANE (09/13/2024 9:06 AM EST) Rupture of Membrane Negative Negative 09/13/2024 9:30 AM EST [facility] Swab Specimen from wound / Unknown 09/13/2024 9:06 AM EST 09/13/2024 9:06 AM EST Sheridan Lord PA-C LAB FLUID AND STOOL ORDERABL ES Final Result [facility] [address] [facility] [place] [address] documented in this encounter Visit Diagnoses Diagnosis [...] or not applicable History of gestational hypertension Supervision of other normal , antepartum- Primary Depression complicating , antepartum Mental disorders of mother, antepartum History of gestational hypertension History of section complicating Previous delivery, unspecified as to episode of care or not applicable Obesity in , antepartum Obesity complicating , childbirth, or the puerperium, antepartum condition or complication Antepartum anemia complicating Anemia, antepartum documented in this encounter
--- OUTSIDE RECORDS SUMMARY | 2024-09-20 22:28 | External Medical Summary | Summary of Care ---
Author Name Unknown Organization [facility] Address [address] [facility] [place] [address] Phone [phone] Care Team Providers Care Psych Tech Name Role Phone Unavailable Primary Care Provider Unavailabl e Reason for Visit * Reason Comments Return Visit Encounter Details Date Type Department Care Team (Late st Contact Info) Description 08/23/2024 4:30 PM EDT Office Visit Gynecology/Obstetric s Reggie Adams [address] [place] [address] Sheridan Lord PA-C [address] [place] [address] Supervision of other normal , antepartum*; Depression complicating , antepartum; History of gestational hypertension; History of section complicating ; Obesity in , antepartum; Antepartum anemia complicating ; Elevated BP without diagnosis of hypertension Allergies No known active allergiesdocumented as of this encounter (statuses as of 08/23/2024) Medications Medication Sig Dispensed Refills Start Date [...] before bedtime. 60 Tablet 3 07/07/2024 Active documented as of this encounter (statuses as of 08/23/2024) Active Problems Problem Noted Date Diagnosed Date [...] scheduled between 39-40 weeks gestation. As per [employer]'s 2010 practice [...] as of this encounter (statuses as of 08/23/2024) Resolved Problems Problem Noted Date Diagnosed Date Resolved Date Abnormal GTT (glucose tolerance test) 04/01/2024 07/07/2024 Overview: Failed 1 hour GTT at 13 weeks. 3 hour GTT ordered. with 10 completed weeks gestation 03/07/2024 05/25/2024 History of positive PPD 02/29/2024 05/0 04/2024 Supervision of high risk pre gnancy in first trimester 02/29/2024 05/25/2024 documented as of this encounter (statuses as of 08/23/2024) Immunizations Name Administration Dates Next Due TDAP, [...] money to get more. Never true 04/14/2024 [place] Depression Scale Answer Date Recorded [place] Depression Scale Total 3 02/28/2024 The thought of harming myself has occurred to me . Never 02/28/2024 Childcare Answer Date Recorded Do you feel [...] Sign Reading Time Taken Comments Blood Pressure 148/88 08/23/2024 4:59 PM EDT Pulse - - Temperature - - Respiratory Rate - - Oxygen Saturation - - Inhaled Oxygen Concentration - - Weight 106.1 kg (234 lb) 08/23/2024 4:36 PM EDT Height - - Body Mass Index 41.45 08/03/2024 4:41 PM EDT documented in this encounter Progress Notes * Sheridan Lord PA-C - 08/23/2024 4:58 PM EDT 34w5d BP elevated with visit 146/90, repeat 148/88. First elevation in this . History of GHTN inlast . Denies symptoms. No h/a, cp, SOB, n/v, RUQ pain. Mild increase swelling hands/feet.No proteins by site dip. Plans ERCS with tubal, scheduled. Denies VB, LOF. BH contractions. No regular contractions. Baby is active. PEC labs today. RTC in 2 days for NIDA/BP check. Pre-eclampsia precautions in meantime. Sheridan Lord PA-C * Hilda Falherty LPN - 08/23/2024 4:37 PM EDT 34w5d Denies vaginal bleeding/rom + movement Stephan mg documented in this encounter Plan of Treatment Upcoming Encounters Date Type Department Care Team (Late st Contact Info) Description 08/25/2024 8:30 AM EDT Office Visit Gynecology/Obstetrics Reggie Adams [address] [place] [address] Ty Dodson MD [address] [place] [address] 09/04/2024 8:30 AM EST Office Visit Gynecology/Obstetrics Reggie Adams [address] [place], [place] [address] Ty Dodson MD [address] [place] [address] 09/07/2024 8:00 AM EST Imaging Maternal Medicine Imaging, Scott Adams [address] [place] [address] 10/04/2024 10:30 AM EST Office Visit Gynecology/Obstetrics Reggie Adams [address] [place], [place] [address] [place], [place]YDA Lopez [address] [place] [address] Pending Results Name Type Priority Associated Diagnoses Date /Time PLT Lab Routine Supervision of other normal , antepartum History of gestational hypertension Elevated BP without diagnosis of hypertension 08/23/2024 5:15 PM EDT AST Lab Routine Supervision of other normal , antepartum History of gestational hypertension Elevated BP without diagnosis of hypertension 08/23/2024 5:15 PM EDT ALT Lab Routine Supervision of other normal , antepartum History of gestational hypertension Elevated BP without diagnosis of hypertension 08/23/2024 5:15 PM EDT PROTEIN/ CREATININE RATIO, URINE Lab Routine Supervision of other normal , antepartum History of gestational hypertension Elevated BP without diagnosis of hypertension 08/23/2024 5:03 PM EDT BUN Lab Routine Supervision of other normal , antepartum History of gestational hypertension Elevated BP without diagnosis of hypertension 08/23/2024 5:15 PM EDT CREATININE Lab Routine Supervision of other normal , antepartum History of gestational hypertension Elevated BP without diagnosis of hypertension 08/23/2024 5:15 PM EDT Scheduled Orders Name Type Priority Associated Diagnoses Orde r Schedule PLT Lab Routine Supervision of other normal , antepartum History of gestational hypertension Elevated BP without diagnosis of hypertension Expected: 08/23/2024, Expires: 08/23/2025 AST Lab Routine Supervision of other normal , antepartum History of gestational hypertension Elevated BP without diagnosis of hypertension Expected: 08/23/2024, Expires: 08/23/2025 ALT Lab Routine Supervision of other normal , antepartum History of gestational hypertension Elevated BP without diagnosis of hypertension Expected: 08/23/2024, Expires: 08/23/2025 BUN Lab Routine Supervision of other normal , antepartum History of gestational hypertension Elevated BP without diagnosis of hypertension Expected: 08/23/2024, Expires: 08/23/2025 CREATININE Lab Routine Supervision of other normal , antepartum History of gestational hypertension Elevated BP without diagnosis of hypertension Expected: 08/23/2024, Expires: 08/23/2025 Health Maintenance Due Date Last Done Comments Depression Monitoring 2007 Hepatitis B Vaccine (1 of 3 - 19+ 3-dose series) 2014 COVID-19 Vaccine ( - 2023-2 5 season) 2024 Influenza Vaccine [...] Diagnosis Comments URINALYSIS OBSTETRICS, POINT OF CARE Routine 08/23/2024 4:57 PM EDT Supervision of other normal , antepartum Elevated BP without diagnosis of hypertension documented in this encounter Results * (ABNORMAL) URINALYSIS OBSTETRICS, POINT OF CARE (08/23/2024 4:57 PM EDT) Color, Urine Yellow Light Yellow, Yellow 08/23/2024 5:03 PM EDT [facility] [place] [facility] Clarity, Urine Clear Clear 08/23/2024 5:03 PM EDT [facility] [place] [facility] Glucose, Urine Negative Negative mg/dL 08/23/2024 5:03 PM EDT [facility] [place] [facility] Bilirubin, Urine Negative Negative 08/23/2024 5:03 PM EDT [facility] [place] [facility] Ketone, Urine Negative Negative mg/dL 08/23/2024 5:03 PM EDT [facility] [place] [facility] Specific [place], Urine 1.015 1.003 - 1.030 08/23/2024 5:03 PM EDT [facility] [place] [facility] Blood, Urine Negative Negative 08/23/2024 5:03 PM EDT [facility] [place] [facility] pH, Urine 7.0 5.0, 5.5, 6.0, 6.5, 7.0, 7.5 units 08/23/2024 5:03 PM EDT [facility] [place] [facility] Protein, Urine Negative Negative mg/dL 08/23/2024 5:03 PM EDT [facility] [place] [facility] Urobilinogen, Urine 0.2 0.2, 1.0 mg/dL 08/23/2024 5:03 PM EDT [facility] [place] [facility] Nitrite, Urine Negative Negative 08/23/2024 5:03 PM EDT [facility] [place] [facility] Esterase, Urine Trace(A) Negative 08/23/2024 5:03 PM EDT [facility] [place] [facility] Urine 08/23/2024 4:57 PM EDT 08/23/2024 5:03 PM EDT Sheridan Lord PA-C LAB POINT OF CARE TE ST DOCKED DEVICE UNSOLICITED RESULTS [facility] [place] [facility] [address] [place] [address] documented in this encounter Visit Diagnoses Diagnosis Supervision of other normal , antepartum- Primary Depression complicating , antepartum Mental disorders of mother, antepartum History of gestational hypertension History of section complicating Previous delivery, unspecified as to episode of care or not applicable Obesity in , antepartum Obesity complicating , childbirth, or the puerperium, antepartum condition or complication Antepartum anemia complicating Anemia, antepartum Elevated BP without diagnosis of hypertension documented in this encounter
--- OUTSIDE RECORDS SUMMARY | 2024-09-20 22:28 | External Medical Summary | Summary of Care ---
Author Name Unknown Organization [facility] Address [address] [facility] [place] [address] Phone [phone] Care Team Providers Care Fulfillment Associate Name Role Phone Unavailable Primary Care Provider Unavailabl e Reason for Visit * Reason Comments Outpatient Testing Encounter Details Date Type Department Care Team (Late st Contact Info) Description 08/23/2024 4:50 PM EDT Laboratory Laboratory, [facility] [address] [facility] [place] [phone] [facility] [address] Antepartum anemia complicating ; Supervision of other normal , antepartum; History of gestational hypertension; Elevated BP without diagnosis of hypertension Allergies [...] scheduled between 39-40 weeks gestation. As per [employer]'s 2010 practice [...] money to get more. Never true 04/14/2024 [place] Depression Scale Answer Date Recorded [place] Depression Scale Total 3 02/28/2024 The thought [...] on file documented as of this encounter Plan of Treatment Upcoming Encounters Date Type Department Care Team (Late st Contact Info) Description 08/25/2024 8:30 AM EDT Office Visit Gynecology/Obstetrics Reggie Adams [address] [place] [address] Ty Dodson MD [address] [place] [address] 09/04/2024 8:30 AM EST Office Visit Gynecology/Obstetrics Reggie Adams [address] [place] [address] Ty Dodson MD [address] [place] [address] 09/07/2024 8:00 AM EST Imaging Maternal Medicine Imaging, Scott Adams [address] [place] [address] 10/04/2024 10:30 AM EST Office Visit Gynecology/Obstetrics Reggie Admas [address] [place] [address] Larisa Bartlett CRNP [address] [place] [address] Pending Results Name Type Priority Associated Diagnoses Date /Time CBC WITH WBC DIFFERENTIAL AND ANEMIA REFLEX WORKUP Lab Routine Antepartum anemia complicating 08/23/2024 5:15 PM EDT PLT Lab Routine Supervision of other normal [...] diagnosis of hypertension 08/23/2024 5:15 PM EDT BUN Lab Routine Supervision of other normal , antepartum History of gestational hypertension Elevated BP without diagnosis of hypertension 08/23/2024 5:15 PM EDT CREATININE Lab Routine Supervision of other normal , antepartum History of gestational hypertension Elevated BP without diagnosis of hypertension 08/23/2024 5:15 PM EDT ANEMIA CBC Lab Routine Antepartum anemia complicating 08/23/2024 5:15 PM EDT DIFFERENTIAL, AUTOMATED Lab Routine Antepartum anemia complicating 08/23/2024 5:15 PM EDT ANEMIA REFLEX CHEMISTRY HOLD Lab Routine Antepartum anemia complicating 08/23/2024 5:15 PM EDT Health Maintenance Due Date Last Done Comments [...] as of this encounter Visit Diagnoses Diagnosis Antepartum anemia complicating Anemia, antepartum Supervision of other normal , antepartum History of gestational hypertension Elevated BP without diagnosis of hypertension documented in this encounter
--- OUTSIDE RECORDS SUMMARY | 2024-09-20 22:28 | External Medical Summary ---
Author Name Unknown Address Unknown Organization [id number]:LABORATORY [facility] - [facility] [address] [place] [address] Laboratory Report Ordering Provider Test Date Status JEREMI VILLA 09/04/2024 09:47:46 Final Observation Date Value Abnormality Reference (Units ) Status Streptococcus agalactiae DNA [Presence] in Specimen by EMY with probe detection 09/04/2024 09:47:46 Negative Negative Final No Group B Streptococcus det ected by culture-enhanced PCR (amplified probe). GBS GBSCT - [facility] 09/04/2024 09:47:46 0.0 Final GBS SPCCT - [facility] 09/04/2024 09:47:46 31.1 Final Performing Location LABORATORY [facility] - [address] [place] [address]
--- OUTSIDE RECORDS SUMMARY | 2024-09-20 22:28 | External Medical Summary | Summary of Care ---
Author Name Unknown Organization [facility] Address [address] [facility] [place] [address] Phone [phone] Care Team Providers Care Park Worker Supervisor Name Role Phone Unavailable Primary Care Provider Unavailabl e Encounter Details Date Type Department Care Team (Late st Contact Info) Description 08/24/2024 Telephone Gynecology/Obstetrics [facility] [address] [facility] [place] [address] Perri Squires PA-Karen [address] [facility] [place] [address] Allergies No known [...] scheduled between 39-40 weeks gestation. As per [employer]'s 2010 practice [...] money to get more. Never true 04/14/2024 [place] Depression Scale Answer Date Recorded [place] Depression Scale Total 1 08/23/2024 The thought [...] encounter Miscellaneous Notes * Telephone Encounter - Sheela Velasquez LPN - 08/24/2024 11:38 AM EDT Myg sent * Telephone Encounter - Hilda Flaherty LPN [...] low. I have sent supplementation to the [facility] in [place] for her to take once daily. We will plan to re-check levels in 4 weeks for improvement. Thanks! Perri Squires PA-C documented in this encounter Plan of Treatment Upcoming Encounters Date Type Department Care Team (Late st Contact Info) Description 08/25/2024 8:30 AM EDT Office Visit Gynecology/Obstetrics Reggie Adams [address] [place] [address] Ty Dodson MD [address] [place] [address] 09/04/2024 8:30 AM EST Office Visit Gynecology/Obstetrics Reggie Adams [address] [place] [address] Ty Dodson MD [address] [place] [address] 09/07/2024 8:00 AM EST Imaging Maternal Medicine Imaging, Scott Adams [address] [phone] 10/04/2024 10:30 AM EST Office Visit Gynecology/Obstetrics Reggie Adams [address] [place] [address] [place], NEYDA Lopez [address] [place] [address] Health Maintenance Due Date Last Done Comments [...]
--- OUTSIDE RECORDS SUMMARY | 2024-09-20 22:28 | External Medical Summary ---
Author Name Unknown Address Unknown Organization [id number]:[facility] [place] [facility] - [address] [place] [address] Laboratory Report Ordering Provider Test Date Status LYLA GOODMAN 09/13/2024 09:06:38 Final Observation Date Value Abnormality Reference (Units ) Status Premature Rupture Membrane risk 09/13/2024 09:06:38 Negative Negative Final Performing Location [facility] [place] [facility] 0 - [address] [place] [address]
--- OUTSIDE RECORDS SUMMARY | 2024-09-20 22:28 | External Medical Summary | Summary of Care ---
Author Name Unknown Organization [facility] Address [address] [place] [address] Phone [phone] Care Team Providers Care Lacemaker Name Role Phone Unavailable Primary Care Provider Unavailabl e Encounter Details Date Type Department Care Team (Late st Contact Info) Description 09/07/2024 8:00 AM EST Office Visit Machine Tack Puller Obstetrics [facility]aternal [facility], [address] [address] Lacey Weaver, DO [address] [place], [place] [id number] Obesity in , antepartum*; Ultrasound for screening for growth restriction; 36 weeks gestation of Allergies No known active allergiesdocumented as of this encounter (statuses as of 09/08/2024) Medications Escitalopram Oxalate 5 MG Oral Tablet [...] as of this encounter (statuses as of 09/08/2024) Active Problems Problem Noted Date Diagnosed Date [...] scheduled between 39-40 weeks gestation. As per [employer]'s 2010 practice [...] as of this encounter (statuses as of 09/08/2024) Resolved Problems Problem Noted Date Diagnosed Date Resolved Date Abnormal GTT (glucose tolerance test) 04/01/2024 07/07/2024 Overview (04/01/2024): Failed 1 hour GTT at 13 weeks. 3 hour GTT ordered. with 10 completed weeks gestation 03/07/2024 05/25/2024 History of positive PPD 02/29/2024 05/0 04/2024 Supervision of high risk pre gnancy in first trimester 02/29/2024 05/25/2024 documented as of this encounter (statuses as of 09/08/2024) Immunizations Name Administration Dates Next Due TDAP, [...] money to get more. Never true 04/14/2024 [place] Depression Scale Answer Date Recorded [place] Depression Scale Total 1 08/23/2024 The thought [...] 09/13/2024 7:45 AM EST Office Visit Gynecology/Obstetrics [facility] [address] [place] [address] Sheridan Lord PA-C [address] [place] [address] 10/04/2024 10:30 AM EST Office Visit Gynecology/Obstetrics [facility] [address] [place] [address] Larisa Bartlett CRNP [address] [place] [address] Health Maintenance Due Date Last Done Comments [...]
--- OUTSIDE RECORDS SUMMARY | 2024-09-20 22:28 | External Medical Summary | Summary of Care ---
Author Name Unknown Organization [facility] Address [address] [facility] [place] [address] Phone [phone] Care Team Providers Care Cashiers Bussers Food Runners Name Role Phone Unavailable Primary Care Provider Unavailabl e Encounter Details Date Type Department Care Team (Late st Contact Info) Description 08/24/2024 Orders Only Laboratory, [facility] [address] [facility] [place] [address] Perri Squires PA-C [address] [facility] [place] [address] Antepartum anemia complicating * Allergies No known active allergiesdocumented as of [...] scheduled between 39-40 weeks gestation. As per [employer]'s 2010 practice [...] money to get more. Never true 04/14/2024 [place] Depression Scale Answer Date Recorded [place] Depression Scale Total 1 08/23/2024 The thought [...] 8:30 AM EDT Office Visit Gynecology/Obstetrics [facility] [address] [place] [address] Ty Dodson MD [address] [place] [address] 09/04/2024 8:30 AM EST Office Visit Gynecology[facility]stetrics [facility] [address] [place] [address] Ty Dodson MD [address] [place] [address] 09/07/2024 8:00 AM EST [facility] [address] [place] [address] 10/04/2024 10:30 AM EST [facility] [address] [place] [address] [place], [place]DA Lopez [address] [place] [address] Scheduled Orders Name Type Priority Associated Diagnoses Orde r Schedule CBC WITH WBC DIFFERENTIAL AND ANEMIA REFLEX WORKUP Lab Routine Antepartum anemia complicating Expected: 09/21/2024, Expires: 08/24/2025 Health Maintenance Due Date Last Done Comments [...] encounter Visit Diagnoses Diagnosis Antepartum anemia complicating - Primary Anemia, antepartum documented in this encounter
--- OUTSIDE RECORDS SUMMARY | 2024-09-20 22:29 | External Medical Summary ---
Author Name Unknown Address Unknown Organization [id number]:LABORATORY [facility] [place] - [address] [facility] [address] [place] [address] Laboratory Report Ordering Provider Test Date Status PEGGY HELLER 08/23/2024 17:15:08 Final Observation Date Value Abnormality Reference (Units ) Status Ferritin 08/23/2024 17:15:08 22 13-150 (ng /mL) Final Performing Location [facility] - [address] [place] [address]
--- OUTSIDE RECORDS SUMMARY | 2024-09-20 22:29 | External Medical Summary ---
Author Name Unknown Address Unknown Organization [id number]:[facility] [place] [address] [place] [address] Laboratory Report Ordering Provider Test Date Status PEGGY HELLER 08/23/2024 17:15:08 Final Observation Date Value Abnormality Reference (Units ) Status Folic Acid 08/23/2024 17:15:08 13.5 >4.5 (ng/ mL) Final Performing Location [facility] - [address] [place] [address]
--- OUTSIDE RECORDS SUMMARY | 2024-09-20 22:29 | External Medical Summary ---
Author Name Unknown Address Unknown Organization K01:LAB[facility]ATORY [facility] - [address] [place] [address] Laboratory Report Ordering Provider Test Date Status PEGGY HELLER 08/23/2024 17:15:08 Final Observation Date Value Abnormality Reference (Units ) Status Vitamin B12 08/23/2024 17:15:08 958 147-9941 (pg/mL) Final Performing Location [facility] - [address] [place] [place] [address]
--- OUTSIDE RECORDS SUMMARY | 2024-09-20 22:29 | External Medical Summary | Summary of Care ---
Author Name Unknown Organization [facility] Address [address] [facility] [place] [address] Phone [phone] Care Team Providers Care Woodworking Craftsman Name Role Phone Unavailable Primary Care Provider Unavailabl e Reason for Visit * Reason Comments Return Visit Encounter Details Date Type Department Care Team (Late st Contact Info) Description 07/14/2024 7:45 AM EDT Office Visit Gynecology/Obstetric s Reggie Adams [address] [place] [phone] Sheridan Lord PA-C [address] [place] [phone] Supervision of other normal , antepartum*; Depression complicating , antepartum; History of gestational hypertension; History of section complicating ; Obesity in , antepartum; Antepartum anemia complicating ; Need for mlinqbpmlq-uajtiqk-ht rtussis (Tdap) vaccine Allergies No known active allergiesdocumented as of this encounter (statuses as of 07/14/2024) Medications Medication Sig Dispensed Refills Start Date [...] as of this encounter (statuses as of 07/14/2024) Active Problems Problem Noted Date Diagnosed Date [...] scheduled between 39-40 weeks gestation. As per [employer]'s 2010 practice [...] as of this encounter (statuses as of 07/14/2024) Resolved Problems Problem Noted Date Diagnosed Date Resolved Date Abnormal GTT (glucose tolerance test) 04/01/2024 07/07/2024 Overview: Failed 1 hour GTT at 13 weeks. 3 hour GTT ordered. with 10 completed weeks gestation 03/07/2024 05/25/2024 History of positive PPD 02/29/2024 05/0 04/2024 Supervision of high risk pre gnancy in first trimester 02/29/2024 05/25/2024 documented as of this encounter (statuses as of 07/14/2024) Immunizations Name Administration Dates Next Due TDAP, [...] money to get more. Never true 04/14/2024 [place] Depression Scale Answer Date Recorded [place] Depression Scale Total 3 02/28/2024 The thought [...] Sign Reading Time Taken Comments Blood Pressure 124/78 07/14/2024 7:43 AM EDT Pulse - - Temperature - - Respiratory Rate - - Oxygen Saturation - - Inhaled Oxygen Concentration - - Weight 101.2 kg (223 lb) 07/14/2024 7:43 AM EDT Height - - Body Mass Index 39.5 05/26/2024 9:24 AM EDT documented in this encounter Progress Notes * Sheridan Lord PA-C - 07/14/2024 7:45 AM EDT 29w0d Completed third tri labs. Failed 1 hour, passed 3 hour gtt. Counseled on TDaP and flu, accepts TDaP, declines flu. Plans elective repeat C/S and tubal. Message sent to [employer] for scheduling. Last growth with MFM 07/12/2024 -- growth 56th%. Denies VB, LOF, contractions. Pos fm. RTC in 2 week Sheridan Lord PA-C documented in this encounter Nursing Notes * Cassandra Marmolejo LPN - 07/14/2024 8:04 AM EDT Patient here for tdap injection. Patient doing well no complaints. Injection given IM as ordered. Patient tolerated well. Patient to follow up as directed. Patient instructed to call if any complications. Patient verbalized understanding of instructions given and her follow up appt for NIDA Injection site: Left Deltoid Medication Source: Dispensed stock medication * Hilda Flaherty LPN - 07/14/2024 7:47 AM EDT 29w0d Denies vaginal bleeding/rom + movement Tdap today documented in this encounter Plan of Treatment Upcoming Encounters Date Type Department Care Team (Late st Contact Info) Description 07/28/2024 9:00 AM EDT Office Visit Gynecology/Obstetrics Reggie Adams [address] [place] [phone] Sheridan Lord PA-C [address] [place] [phone] 08/10/2024 8:00 AM EDT Imaging Maternal Medicine Imaging, Scott Canaless [address] [place] [phone] 09/07/2024 8:00 AM EST Imaging Maternal Medicine Imaging, Scott Canaless [address] [place] [phone] Health Maintenance Due Date Last Done Comments [...] as of this encounter Visit Diagnoses Diagnosis Supervision of other normal , antepartum- Primary Depression complicating , antepartum Mental disorders of mother, antepartum History of gestational hypertension History of section complicating Previous delivery, unspecified as to episode of care or not applicable Obesity in , antepartum Obesity complicating , childbirth, or the puerperium, antepartum condition or complication Antepartum anemia complicating Anemia, antepartum Need for lysvfiygyv-nsxemjk-pifsaehar (Tdap) vaccine Need for prophylactic vaccination with combined qaxfjjqqqc-pdelqwr-fcfuirxui (DTP) vaccine documented in this encounter
--- OUTSIDE RECORDS SUMMARY | 2024-09-20 22:29 | External Medical Summary ---
Author Name Unknown Address Unknown Organization [id number]:[facility] [place] [facility] [place] [address] Laboratory Report Ordering Provider Test Date Status PEGGY HELLER 08/23/2024 17:15:08 Final Observation Date Value Abnormality Reference (Units ) Status Retic, % (auto) 08/23/2024 17:15:08 2.67 Above high normal 0.80-1.90 (%) Final Reticulocytes, Absolute 08/23/2024 17:15:08 103.1 Above high normal 31.3-100.1 (K/uL) Final Reticulocyte fraction, immature 08/23/2024 17:15:08 28.3 Above high normal 2.5-20.6 (%) Final Reticulocyte HGB 08/23/2024 17:15:08 31.4 29.7-37.4 (pg) Final Performing Location [facility] [place] [facility] [place] [address]
--- OUTSIDE RECORDS SUMMARY | 2024-09-20 22:29 | External Medical Summary ---
Author Name Unknown Address Unknown Organization [id number]:[facility]ATORY [facility] [place] - [address] [place] [address] Laboratory Report Ordering Provider Test Date Status LYLA GOODMAN 08/23/2024 17:15:08 Final Observation Date Value Abnormality Reference (Units ) Status AST (Aspartate aminotransferase) 08/23/2024 17:15:08 14 10-35 (U/L) Final Performing Location [facility] - [address] [place] [address] [place] [address]
--- OUTSIDE RECORDS SUMMARY | 2024-09-20 22:29 | External Medical Summary | Summary of Care ---
Author Name Unknown Organization [facility] Address [address] [facility] [place] [address] Phone [phone] Care Team Providers Care Clinical Care Leader Name Role Phone Unavailable Primary Care Provider Unavailabl e Encounter Details Date Type Department Care Team (Late st Contact Info) Description 08/04/2024 Telephone Gynecology/Obstetrics [facility] [address] [facility] [place] [phone] Perri Squires PA-Karen [address] [facility] [place] [phone] Allergies No known active allergiesdocumented as of this encounter (statuses as of 08/04/2024) Medications Medication Sig Dispensed Refills Start Date [...] as of this encounter (statuses as of 08/04/2024) Active Problems Problem Noted Date Diagnosed Date [...] scheduled between 39-40 weeks gestation. As per [employer]'s 2010 practice [...] as of this encounter (statuses as of 08/04/2024) Resolved Problems Problem Noted Date Diagnosed Date Resolved Date Abnormal GTT (glucose tolerance test) 04/01/2024 07/07/2024 Overview: Failed 1 hour GTT at 13 weeks. 3 hour GTT ordered. with 10 completed weeks gestation 03/07/2024 05/25/2024 History of positive PPD 02/29/2024 05/0 04/2024 Supervision of high risk pre gnancy in first trimester 02/29/2024 05/25/2024 documented as of this encounter (statuses as of 08/04/2024) Immunizations Name Administration Dates Next Due TDAP, [...] money to get more. Never true 04/14/2024 [place] Depression Scale Answer Date Recorded [place] Depression Scale Total 3 02/28/2024 The thought [...] No 04/14/2024 Does the household have a [email or web address]lar source of income? (Household - for ages [...] encounter Miscellaneous Notes * Telephone Encounter - Iqra Lopez LPN - 08/04/2024 9:53 AM EDT Patient aware, see other encounter * Telephone Encounter - Iqra Lopez LPN - 08/04/2024 9:52 AM EDT ----- Message from Perri Squires sent at 08/04/2024 9:26 AM EDT ----- Covering for Sheridan Lord PA-C. Please inform patient her recent CBC is continuing to show anemia. Per her med list, she is taking iron once daily. Please have her increase this to BID. We will plan to recheck her levels for improvement in 4 weeks. Thanks! Perri Squires PA-C documented in this encounter Plan of Treatment Upcoming Encounters Date Type Department Care Team (Late st Contact Info) Description 08/10/2024 8:00 AM EDT Imaging Maternal Medicine Imaging, [facility] [address] [place] [phone] 08/18/2024 7:45 AM EDT Office Visit Gynecology/Obstetrics [facility] [address] [place] [phone] Sheridan Lord PA-C [address] [place] [address] 09/07/2024 8:00 AM EST Imaging Maternal Medicine Imaging, [facility] [address] [place] [phone] Health Maintenance Due Date Last Done Comments [...]
--- OUTSIDE RECORDS SUMMARY | 2024-09-20 22:29 | External Medical Summary ---
Author Name Unknown Address Unknown Organization K01[place] [facility] [place] [facility] [address] [facility] [address] [facility] [address] [place] [address] Laboratory Report Ordering Provider Test Date Status LYLA GOODMAN 08/03/2024 16:52:43 Final Observation Date Value Abnormality Reference (Units ) Status WBC, Total 08/03/2024 16:52:43 10.57 4.00-10.8 0 (K/uL) Final RBC 08/03/2024 16:52:43 3.89 3.85-5.15 (M/uL) Final Hemoglobin 08/03/2024 16:52:43 11.3 Below low normal 12 .0-15.3 (g/dL) Final Anemia reflex testing trigge rs on a HGB < 12.0 for Females and HGB < 13.0 for Males in accordance with the WHO Anemia Guidelines
Anemia reflex testing triggers on a HGB < 12.0 for Females and HGB < 13.0 for Males in accordance with the WHO Anemia Guidelines HCT 08/03/2024 16:52:43 35.4 Below low normal 36. 0-45.2 (%) Final MCV 08/03/2024 16:52:43 91.0 81.5-97.5 (fL) Final MCH 08/03/2024 16:52:43 29.0 27.0-34.0 (pg) Final MCHC 08/03/2024 16:52:43 31.9 32.0-36.0 (g/dL) Final RDW 08/03/2024 16:52:43 14.6 11.5-15.5 (%) Final Platelets 08/03/2024 16:52:43 263 140-400 (K /uL) Final MPV 08/03/2024 16:52:43 10.4 6.6-11.1 ( fL) Final Nucleated erythrocytes/100 leukocytes [Ratio] in Blood by Automated count 08/03/2024 16:52:43 0 <=0 (/100 WBCs) Final Performing Location [facility] [place] [address] [facility] [address]
--- OUTSIDE RECORDS SUMMARY | 2024-09-20 22:29 | External Medical Summary ---
Author Name Unknown Address Unknown Organization [id number]:[facility] [place] [address] [place] [address] Laboratory Report Ordering Provider Test Date Status PEGGY HELLER 08/23/2024 17:15:08 Final Observation Date Value Abnormality Reference (Units ) Status TSH 08/23/2024 17:15:08 1.11 0.27-4.20 (uIU/mL) Final Performing Location [facility] - [address] [place] [address]
--- OUTSIDE RECORDS SUMMARY | 2024-09-20 22:29 | External Medical Summary | Summary of Care ---
Author Name Unknown Organization [facility] Address [address] [place] [address] Phone [phone] Care Team Providers Care Superintendent Maintenance Airports Name Role Phone Unavailable Primary Care Provider Unavailabl e Reason for Visit * Reason Comments Outpatient Testing Encounter Details Date Type Department Care Team (Late st Contact Info) Description 07/06/2024 9:00 AM EDT Laboratory Laboratory, [facility] [address] [facility] [facility] [place] [phone] [facility] [address] [address] Supervision of other normal , antepartum; Abnormal GTT (glucose tolerance test) Allergies No known active allergiesdocumented as of this encounter (statuses as of 07/06/2024) Medications Medication Sig Dispensed Refills Start Date [...] Tablet by mouth in the morning. Active documented as of this encounter (statuses as of 07/06/2024) Active Problems Problem Noted Date Diagnosed Date Abnormal GTT (glucose tolerance test) 04/01/2024 Overview: Failed 1 hour GTT at 13 weeks. 3 hour GTT ordered. Supervision of other normal , antepartu m [...] 02/28/2024 03:32 PM Last Assessment & Plan: -Early 1-hr GCT 147, 3-hr OGTT / elevated -Repeat OGTT at 26-28 weeks Depression complicating , antepartum Overview: History of [...] scheduled between 39-40 weeks gestation. As per [employer]'s 2010 practice [...] as of this encounter (statuses as of 07/06/2024) Resolved Problems Problem Noted Date Diagnosed Date Resolved Date with 10 completed weeks gestation 03/07/2024 05/25/2024 History of positive PPD 02/29/2024 05/0 04/2024 Supervision of high risk pre gnancy in first trimester 02/29/2024 05/25/2024 documented as of this encounter (statuses as of 07/06/2024) Social History Tobacco Use Types Packs/Day Years [...] money to get more. Never true 04/14/2024 [place] Depression Scale Answer Date Recorded [place] Depression Scale Total 3 02/28/2024 The thought [...] No 04/14/2024 Does the household have a [facility] source [facility]? (Household - for ages [...] Care Team (Late st Contact Info) Description 07/13/2024 8:45 AM EDT Office Visit Aspnet Developer Obstetrics Maternal Medicine, [place] [phone] Paulie Proctor MD [address] [facility] [place] [address] 07/13/2024 8:45 AM EDT Imaging Maternal Medicine Imaging, [place] [phone] 07/14/2024 7:45 AM EDT Office Visit Gynecology/Obstetrics Reggie Adams [address] [place] [address] Sheridan Lord PA-C [address] [place] [phone] 08/10/2024 8:00 AM EDT Imaging Maternal Medicine Imaging, Scott Zhang [place] [phone] 09/07/2024 8:00 AM EST Imaging Maternal Medicine Imaging, Scott [address] [place] [phone] Pending Results Name Type Priority Associated Diagnoses Date /Time CBC WITH WBC DIFFERENTIAL AND ANEMIA REFLEX WORKUP Lab Routine Supervision of other normal , antepartum 07/06/2024 9:00 AM EDT GESTATIONAL GLUCOSE TOLERANCE, 3 HOUR Lab Routine Supervision of other normal , antepartum Abnormal GTT (glucose tolerance test) 07/06/2024 9:00 AM EDT SYPHILIS ANTIBODY SCREEN WITH REFLEX TO RPR Lab Routine Supervision of other normal , antepartum 07/06/2024 9:00 AM EDT ANEMIA CBC Lab Routine Supervision of other normal , antepartum 07/06/2024 9:00 AM EDT DIFFERENTIAL, AUTOMATED Lab Routine Supervision of other normal , antepartum 07/06/2024 9:00 AM EDT ANEMIA REFLEX CHEMISTRY HOLD Lab Routine Supervision of other normal , antepartum 07/06/2024 9:00 AM EDT SYPHILIS ANTIBODY SCREEN Lab Routine Supervision of other normal , antepartum 07/06/2024 9:00 AM EDT 100-G GESTATIONAL GLUCOSE, 1 HOUR Lab Routine Supervision of other normal , antepartum Abnormal GTT (glucose tolerance test) 07/06/2024 10:06 AM EDT 100-G GESTATIONAL GLUCOSE, 2 HOUR Lab Routine Supervision of other normal , antepartum Abnormal GTT (glucose tolerance test) 07/06/2024 11:01 AM EDT Scheduled Orders Name Type Priority Associated Diagnoses Orde r Schedule 100-G GESTATIONAL GLUCOSE, 3 HOUR Lab Routine Supervision of other normal , antepartum Abnormal GTT (glucose tolerance test) Ordered: 07/06/2024 Health Maintenance Due Date Last Done Comments Depression Monitoring 2007 DTap/Tdap Vaccines (1 - Tdap) 2014 Hepatitis B Vaccine (1 of 3 - 19+ 3-dose series) 2014 COVID-19 Vaccine (1 - 2023-2 5 season) 2024 Influenza Vaccine (FLU shot) (#1) 2024 Pap Smear 02/27/2027 02/28/2024 HPV (Gardasil) Vaccine Aged Out No lo [...] Procedure Name Priority Date/Time Associated Diagnosis Comments 100-G GESTATIONAL GLUCOSE, FASTING Routine 07/06/2024 9:00 AM EDT Supervision of other normal , antepartum Abnormal GTT (glucose tolerance test) documented in this encounter Results * 100-G GESTATIONAL GLUCOSE, FASTING (07/06/2024 9:00 AM EDT) 100-g Gestational Glucose, Fasting 85 70 - 94 mg/dL 07/06/2024 10:39 AM EDT LAB[facility]ATORY [place] [facility]-10 Blood Venous blood specimen / Unknown Venipuncture / Unknown 07/06/2024 9:00 AM EDT 07/06/2024 9:00 AM EDT Narrative LABORATORY [place] [facility] - 07/06/2024 10:39 AM EDT Based on ACOG guideline, gestational diabetes mellitus is diagnosed when any of the following is met: Fasting is greater than or equal to 95 mg/dL 1 hour is greater than or equal to 180 mg/dL 2 hour is greater than or equal to 155 mg/dL 3 hour is greater than or equal to 140 mg/dL Larisa FAYE LAB BLOOD O RDERABLES LAB[facility]AT[facility] [facility] [place] [phone] documented in this encounter Visit Diagnoses Diagnosis Supervision of other normal , antepartum Abnormal GTT (glucose tolerance test) Impaired glucose tolerance test documented in this encounter
--- OUTSIDE RECORDS SUMMARY | 2024-09-20 22:29 | External Medical Summary ---
Author Name Unknown Address Unknown Organization K0G:LABORATORY [place] [facility]-[address] - [address] [place] [address] Laboratory Report Ordering Provider Test Date Status HAMIDA CARDENASBRANDON 07/06/2024 10:06:59 Final Observation Date Value Abnormality Reference (Units ) Status Glucose [Mass/volume] in Serum or Plasma --1 hour post dose glucose 07/06/2024 10:06:59 207 Above high normal 70-179 (mg/dL) Final Performing Location LABORATORY [place] [facility]-[address] 0 - [address] [place] [address]
--- OUTSIDE RECORDS SUMMARY | 2024-09-20 22:29 | External Medical Summary | Summary of Care ---
Author Name Unknown Organization [facility] Address [address] [place] [address] Phone [phone] Care Team Providers Care Data Coder Operator Name Role Phone Unavailable Primary Care Provider Unavailabl e Encounter Details Date Type Department Care Team (Late st Contact Info) Description 07/13/2024 8:45 AM EDT Office Visit Property Management Intern Obstetrics Maternal Medicine, [address] [place] [address] Benjamin Osborne, DO [address] [place], [place] [id number] Obesity in , antepartum*; Class 2 obesity; History of section complicating ; History of gestational hypertension Allergies No known active allergiesdocumented as of this encounter (statuses as of 07/13/2024) Medications Medication Sig Dispensed Refills Start Date [...] as of this encounter (statuses as of 07/13/2024) Active Problems Problem Noted Date Diagnosed Date [...] scheduled between 39-40 weeks gestation. As per [place]'s 2010 practice [...] as of this encounter (statuses as of 07/13/2024) Resolved Problems Problem Noted Date Diagnosed Date Resolved Date Abnormal GTT (glucose tolerance test) 04/01/2024 07/07/2024 Overview: Failed 1 hour GTT at 13 weeks. 3 hour GTT ordered. with 10 completed weeks gestation 03/07/2024 05/25/2024 History of positive PPD 02/29/2024 05/0 04/2024 Supervision of high risk pre gnancy in first trimester 02/29/2024 05/25/2024 documented as of this encounter (statuses as of 07/13/2024) Social History Tobacco Use Types Packs/Day Years [...] money to get more. Never true 04/14/2024 [place] Depression Scale Answer Date Recorded [place] Depression Scale Total 3 02/28/2024 The thought [...] 04/14/2024 Does the household have a re lar source of income? (Household - for ages [...] on file documented as of this encounter Progress Notes * Benjamin Osborne, - 07/13/2024 9:12 AM EDT MATERNAL MEDICINE VISIT Kalie Rosales presented today at 28w6d to [facility] for an ultrasound. She is being seen today by Maternal- Medicine for the following reasons: Problem List Items Addressed This Visit History of gestational hypertension Class 2 obesity History of section complicating Obesity in , antepartum - Primary She presents for follow-up of growth secondary to class II obesity. She has a history of depression, history of gestational hypertension and previous . Today's ultrasound notes the following: The estimated weight is appropriate for gestational age in the 56th percentile. The visualized anatomy is unremarkable in appearance. The ANTONIA is normal. I reviewed the ultrasound images. Kalie Rosales was given the opportunity to meet with me if she had any questions. Please refer to the ultrasound report for additional details about today's ultrasound examination. RECOMMENDATIONS: Recommend surveillance starting at 37 weeks secondary to class II obesity. Recommend follow up ultrasound with [facility] in 4-6 weeks for growth. Thank you for allowing us to participate in the care of this patient. Please call with any questions. Benjamin Osborne DO 07/13/2024 9:12 AM documented in this encounter Miscellaneous Notes * Assessment & Plan Note - Benjamin Osborne DO - 07/13/2024 8:52 AM EDT Associated Problem(s): Obesity in , antepartum She presents for follow-up of growth secondary to class II obesity. She has a history of depression, history of gestational hypertension and previous . Today's ultrasound notes the following: The estimated weight is appropriate for gestational age in the 56th percentile. The visualized anatomy is unremarkable in appearance. The ANTONIA is normal. documented in this encounter Plan of Treatment Upcoming Encounters Date Type Department Care Team (Late st Contact Info) Description 07/14/2024 7:45 AM EDT Office Visit Gynecology/Obstetrics Reggie Adams [address] [place] [phone] Sheridan Lord PA-C [address] [place] [address] 08/10/2024 8:00 AM EDT Imaging Maternal Medicine Imaging, [facility] Adams [address] [place] [phone] 09/07/2024 8:00 AM EST Imaging Maternal Medicine Imaging, Scott Adams [address] [place] [phone] Health Maintenance Due Date Last Done [...] or not applicable History of gestational hypertension documented in this encounter
--- OUTSIDE RECORDS SUMMARY | 2024-09-20 22:29 | External Medical Summary | Summary of Care ---
Author Name Unknown Organization [facility] Address [address] [facility] [place] [address] Phone [phone] Care Team Providers Care Cap Parts Cutter Name Role Phone Unavailable Primary Care Provider Unavailabl e Reason for Visit * Reason Comments Outpatient Testing Encounter Details Date Type Department Care Team (Late st Contact Info) Description 07/06/2024 9:00 AM EDT Laboratory Laboratory, [facility] [phone] [facility] [address] Supervision of other normal , antepartum; Abnormal [...] money to get more. Never true 04/14/2024 [place] Depression Scale Answer Date Recorded [place] Depression Scale Total 3 02/28/2024 The thought [...] No 04/14/2024 Does the household have a [facility] source of income? (Household - for [...] Description 07/13/2024 8:45 AM EDT Office Visit Mamma Logist Obstetrics Maternal Medicine, [place] [address] Paulie Proctor MD [address] [facility] [place] [address] 07/13/2024 8:45 AM EDT Imaging Maternal Medicine Imaging, [place] [phone] 07/14/2024 7:45 AM EDT Office Visit Gynecology/Obstetrics Reggie Adams [address] [place] [address] Sheridan Lord PA-C [address] [place] [address] 08/10/2024 8:00 AM EDT Imaging Maternal Medicine Imaging, Scott Zhang [place] [phone] 09/07/2024 8:00 AM EST Imaging Maternal Medicine Imaging, Scott Mendez [address] [place] [phone] Pending Results Name Type Priority Associated Diagnoses [...] 07/06/2024 9:00 AM EDT 100-G GESTATIONAL GLUCOSE, 2 HOUR Lab Routine Supervision of other normal , antepartum Abnormal GTT (glucose tolerance test) 07/06/2024 11:01 AM EDT 100-G GESTATIONAL GLUCOSE, 3 HOUR Lab Routine Supervision of other normal , antepartum Abnormal GTT (glucose tolerance test) 07/06/2024 12:06 PM EDT Health Maintenance Due Date Last [...] Date/Time Associated Diagnosis Comments 100-G GESTATIONAL GLUCOSE, 1 HOUR Routine 07/06/2024 10:06 AM EDT Supervision of other normal , antepartum Abnormal GTT (glucose tolerance test) 100-G GESTATIONAL GLUCOSE, FASTING Routine 07/06/2024 9:00 AM EDT Supervision of other normal , antepartum Abnormal GTT (glucose tolerance test) documented in this encounter Results * (ABNORMAL) 100-G GESTATIONAL GLUCOSE, 1 HOUR (07/06/2024 10:06 AM EDT) 100-g Gestational Glucose, 1 Hour 207(H) 70 - 179 mg/dL 07/06/2024 11:19 AM EDT [facility] Blood Venous blood specimen / Unknown Venipuncture / Unknown 07/06/2024 10:06 AM EDT 07/06/2024 10:07 AM EDT Larisa FAYE LAB BLOOD O RDERABLES LABORATORY [facility] [place] 57-10 132 [facility] [place] [address] * 100-G GESTATIONAL GLUCOSE, FASTING (07/06/2024 9:00 AM EDT) 100-g Gestational Glucose, Fasting 85 70 - 94 mg/dL 07/06/2024 10:39 AM EDT LABORATORY [facility] [place] 57-10 Blood Venous blood specimen / Unknown Venipuncture / Unknown 07/06/2024 9:00 AM EDT 07/06/2024 9:00 AM EDT Narrative LABORATORY MICHAEL [place] 57-10 - 07/06/2024 10:39 AM EDT [...] BLOOD O RDERABLES LABORATORY MICHAEL JASON 57-[address] [place] [address] [place] [address] documented in this encounter Visit Diagnoses Diagnosis Supervision of other normal , antepartum Abnormal GTT (glucose tolerance test) Impaired glucose tolerance test documented in this encounter
--- OUTSIDE RECORDS SUMMARY | 2024-09-20 22:29 | External Medical Summary | Summary of Care ---
Author Name Unknown Organization [facility] Address [address] [place] [address] Phone [phone] Care Team Providers Care Sunglass Clip Attacher Name Role Phone Unavailable Primary Care Provider Unavailabl e Encounter Details Date Type Department Care Team (Late st Contact Info) Description 07/13/2024 8:45 AM EDT Office Visit Welding Process Engineer Obstetrics Maternal Medicine, [address] [place] [address] Benjamin Osborne, DO [address] [place], [place] [id number] Obesity in , antepartum*; Class 2 obesity; [...] scheduled between 39-40 weeks gestation. As per [employer]'s 2010 practice [...] money to get more. Never true 04/14/2024 [place] Depression Scale Answer Date Recorded [place] Depression Scale Total 3 02/28/2024 The thought [...] Kalie Rosales presented today at 28w6d to [facility] for an ultrasound. She is being seen [...] II obesity. Recommend follow up ultrasound with [facility] in 4-6 weeks for growth. Thank you [...] Gynecology/Obstetrics Reggie Adams [address] [place] [address] Sheridan Lord PA-C [address] [place] [address] 08/10/2024 8:00 AM EDT Imaging Maternal Medicine [...]
--- OUTSIDE RECORDS SUMMARY | 2024-09-20 22:29 | External Medical Summary | Summary of Care ---
Author Name Unknown Organization [facility] Address [address] [place] [facility] [place] [address] Phone [phone] Care Team Providers Care Frothing Machine Operator Name Role Phone Unavailable Primary Care Provider Unavailabl e Reason for Visit * Reason Comments Outpatient Testing Encounter Details Date Type Department Care Team (Late st Contact Info) Description 07/06/2024 9:00 AM EDT Laboratory Laboratory, [facility] [phone] [facility] 132 [facility] [address] Supervision of other normal , antepartum; Abnormal [...] scheduled between 39-40 weeks gestation. As per [employer]'s 2010 practice [...] money to get more. Never true 04/14/2024 [place] Depression Scale Answer Date Recorded [place] Depression Scale Total 3 02/28/2024 The thought [...] No 04/14/2024 Does the household have a [facility] source of income? (Household - for [...] Description 07/13/2024 8:45 AM EDT Office Visit Arabic Teacher Obstetrics Maternal Medicine, [place] [address] Paulie Proctor MD [address] [facility] [place] [address] 07/13/2024 8:45 AM EDT Imaging Maternal Medicine Imaging, [place] [phone] 07/14/2024 7:45 AM EDT Office Visit Gynecology/Obstetrics Reggie Adams [address] [place] [address] Sheridan Lord PA-C [address] [place] [address] 08/10/2024 8:00 AM EDT Imaging Maternal Medicine Imaging, Scott Zhang [place] [phone] 09/07/2024 8:00 AM EST Imaging Maternal Medicine Imaging, Scott Mendez [address] [place] [phone] Pending Results Name Type Priority Associated Diagnoses [...] 07/06/2024 9:00 AM EDT 100-G GESTATIONAL GLUCOSE, FASTING Lab Routine Supervision of other normal , antepartum Abnormal GTT (glucose tolerance test) 07/06/2024 9:00 AM EDT SYPHILIS ANTIBODY SCREEN Lab Routine Supervision of other normal , antepartum 07/06/2024 9:00 AM EDT 100-G GESTATIONAL GLUCOSE, 1 HOUR Lab Routine Supervision of other normal , antepartum Abnormal GTT (glucose tolerance test) 07/06/2024 10:06 AM EDT Scheduled Orders Name Type Priority Associated Diagnoses Orde r Schedule 100-G GESTATIONAL GLUCOSE, 2 HOUR Lab Routine [...]
--- OUTSIDE RECORDS SUMMARY | 2024-09-20 22:29 | External Medical Summary | Summary of Care ---
Author Name Unknown Organization [facility] Address [address] [facility] [place] [address] Phone [phone] Care Team Providers Care Manager Creative Services Name Role Phone Unavailable Primary Care Provider Unavailabl e Encounter Details Date Type Department Care Team (Late st Contact Info) Description 08/04/2024 Orders Only Laboratory, [facility] 132 [facility] [place] [phone] Perri Squires PA-C 400 [facility] [place] [address] Antepartum anemia complicating * [...] scheduled between 39-40 weeks gestation. As per [employer]'s 2010 practice [...] money to get more. Never true 04/14/2024 [place] Depression Scale Answer Date Recorded [place] Depression Scale Total 3 02/28/2024 The thought [...] Upcoming Encounters Date Type Department Care Team (Giuseppe doss Contact Info) Description 08/10/2024 8:00 AM EDT Imaging Maternal Medicine Imaging, Scott Adams [address] [place] [phone] 08/18/2024 7:45 AM EDT Office Visit Gynecology/Obstetrics Reggie Adams [address] [place] [address] Sheridan Lord PA-C [address] [place] [address] 09/07/2024 8:00 AM EST Imaging Maternal Medicine Imaging, Scott Adams [address] [place] [phone] Scheduled Orders Name Type Priority Associated Diagnoses Orde r Schedule CBC WITH WBC DIFFERENTIAL AND ANEMIA REFLEX WORKUP Lab Routine Antepartum anemia complicating Expected: 09/01/2024 (Approximate), Expires: 08/04/2025 Health Maintenance Due Date Last Done Comments [...]
--- OUTSIDE RECORDS SUMMARY | 2024-09-20 22:29 | External Medical Summary ---
Author Name Unknown Address Unknown Organization K01:LABORATORY C - [address] [place] [address] Laboratory Report Ordering Provider Test Date Status HAMIDA CARDENASBRANDON 07/06/2024 09:00:44 Final Observation Date Value Abnormality Reference (Units ) Status TSH 07/06/2024 09:00:44 1.93 0.27-4.20 (uIU/mL) Final Performing Location [facility] - [address] [place] [address]
--- OUTSIDE RECORDS SUMMARY | 2024-09-20 22:29 | External Medical Summary | Summary of Care ---
Author Name Unknown Organization [facility] Address [address] [facility] [address] Phone [phone] Care Team Providers Care Ship Ceiler Name Role Phone Unavailable Primary Care Provider Unavailabl e Reason for Visit * Reason Comments Return Visit Encounter Details Date Type Department Care Team (Late st Contact Info) Description 08/03/2024 4:30 PM EDT Office Visit Gynecology/Obstetric s Reggie Adams [address] [place] [phone] Sheridan Lord PA-C [address] [place] [address] Supervision of other normal , antepartum*; Depression complicating , antepartum; History of gestational hypertension; History of section complicating ; Obesity in , antepartum; Antepartum anemia complicating Allergies No known active allergiesdocumented as of this encounter (statuses as of 08/03/2024) Medications Medication Sig Dispensed Refills Start Date [...] as of this encounter (statuses as of 08/03/2024) Active Problems Problem Noted Date Diagnosed Date [...] scheduled between 39-40 weeks gestation. As per [employer]'s 2010 practice [...] as of this encounter (statuses as of 08/03/2024) Resolved Problems Problem Noted Date Diagnosed Date Resolved Date Abnormal GTT (glucose tolerance test) 04/01/2024 07/07/2024 Overview: Failed 1 hour GTT at 13 weeks. 3 hour GTT ordered. with 10 completed weeks gestation 03/07/2024 05/25/2024 History of positive PPD 02/29/2024 05/0 04/2024 Supervision of high risk pre gnancy in first trimester 02/29/2024 05/25/2024 documented as of this encounter (statuses as of 08/03/2024) Immunizations Name Administration Dates Next Due TDAP, [...] money to get more. Never true 04/14/2024 [place] Depression Scale Answer Date Recorded [place] Depression Scale Total 3 02/28/2024 The thought [...] Reading Time Taken Comments Blood Pressure 124/78 08/03/2024 4:41 PM EDT Pulse - - Temperature - - Respiratory Rate - - Oxygen Saturation - - Inhaled Oxygen Concentration - - Weight 104 kg (229 lb 3.2 oz) 08/03/2024 4:41 PM EDT Height 160 cm (5' 3") 08/03/2024 4:41 PM EDT Body Mass Index 40.6 08/03/2024 4:41 PM EDT documented in this encounter Progress Notes * Sheridan Lord PA-C - 08/03/2024 4:44 PM EDT 31w6d No complaints. Feeling less tired with iron supplements. Repeat CBC today. Has growth scheduled next week with MFM. Denies LOF, contractions, VB. Baby is active. RTC in 2 week Sheridan Lord PA-C documented in this encounter Nursing Notes * Jessica Bell RN - 08/03/2024 4:42 PM EDT Patient here for NIDA No concerns + FM Jessica Bell RN documented in this encounter Plan of Treatment Upcoming Encounters Date Type Department Care Team (Late st Contact Info) Description 08/10/2024 8:00 AM EDT Imaging Maternal Medicine Imaging, Scott Canaless [address] [place] [phone] 08/18/2024 7:45 AM EDT Office Visit Gynecology/Obstetrics Zackerycarlie Canaless [address] [place] [phone] Sheridan Lord PA-C [address] [place] [address] 09/07/2024 8:00 AM EST Imaging Maternal Medicine Imaging, [address] [place] [phone] Pending Results Name Type Priority Associated Diagnoses Date /Time CBC WITH WBC DIFFERENTIAL AND ANEMIA REFLEX WORKUP Lab Routine Supervision of other normal , antepartum Antepartum anemia complicating 08/03/2024 4:52 PM EDT Scheduled Orders Name Type Priority Associated Diagnoses Orde r Schedule CBC WITH WBC DIFFERENTIAL AND ANEMIA REFLEX WORKUP Lab Routine Supervision of other normal , antepartum Antepartum anemia complicating Expected: 08/03/2024, Expires: 08/03/2025 Health Maintenance Due Date Last Done Comments [...]
--- OUTSIDE RECORDS SUMMARY | 2024-09-20 22:29 | External Medical Summary | Summary of Care ---
Author Name Unknown Organization [facility] Address [address] [facility] [place] [address] Phone [phone] Care Team Providers Care Java Spring Developer Name Role Phone Unavailable Primary Care Provider Unavailabl e Reason for Visit * Reason Comments Outpatient Testing Encounter Details Date Type Department Care Team (Late st Contact Info) Description 07/06/2024 9:00 AM EDT Laboratory Laboratory, [facility] [phone] [facility] 132 [facility] [address] Supervision of other normal , antepartum; Abnormal [...] scheduled between 39-40 weeks gestation. As per [employer]'s 2010 practice [...] money to get more. Never true 04/14/2024 [place] Depression Scale Answer Date Recorded [place] Depression Scale Total 3 02/28/2024 The thought [...] No 04/14/2024 Does the household have a [facility] source of income? (Household - for [...] Description 07/13/2024 8:45 AM EDT Office Visit Electronic Court Recorder Obstetrics Maternal Medicine, [place] [address] Paulie Proctor MD [address] [facility] [place] [address] 07/13/2024 8:45 AM EDT Imaging Maternal Medicine Imaging, [place] [phone] 07/14/2024 7:45 AM EDT Office Visit Gynecology/Obstetrics Reggie Adams [address] [place] [address] Sheridan Lord PA-C [address] [place] [address] 08/10/2024 8:00 AM EDT Imaging Maternal Medicine Imaging, Scott Adams [address] [place] [phone] 09/07/2024 8:00 AM EST Imaging Maternal Medicine Imaging, Scott Adams [address] [place] [phone] Pending Results Name Type Priority Associated Diagnoses [...] normal , antepartum 07/06/2024 9:00 AM EDT Scheduled Orders Name Type Priority Associated Diagnoses Orde r Schedule 100-G GESTATIONAL GLUCOSE, 1 HOUR Lab Routine [...]
--- OUTSIDE RECORDS SUMMARY | 2024-09-20 22:29 | External Medical Summary | Summary of Care ---
Author Name Unknown Organization [facility] Address [address] [place] [address] Phone [phone] Care Team Providers Care Facilities Engineer Name Role Phone Unavailable Primary Care Provider Unavailabl e Encounter Details Date Type Department Care Team (Late st Contact Info) Description 08/10/2024 8:00 AM EDT Office Visit Presales Senior Specialist Obstetrics Maternal Medicine, [address] [place] [address] Lacey Weaver, DO [address] [place], [place] [phone] Obesity in , antepartum*; Ultrasound for screening for growth restriction; 32 weeks gestation of Allergies No known active allergiesdocumented as of this encounter (statuses as of 08/10/2024) Medications Medication Sig Dispensed Refills Start Date [...] as of this encounter (statuses as of 08/10/2024) Active Problems Problem Noted Date Diagnosed Date [...] scheduled between 39-40 weeks gestation. As per [employer]'s 2010 practice [...] as of this encounter (statuses as of 08/10/2024) Resolved Problems Problem Noted Date Diagnosed Date Resolved Date Abnormal GTT (glucose tolerance test) 04/01/2024 07/07/2024 Overview: Failed 1 hour GTT at 13 weeks. 3 hour GTT ordered. with 10 completed weeks gestation 03/07/2024 05/25/2024 History of positive PPD 02/29/2024 05/0 04/2024 Supervision of high risk pre gnancy in first trimester 02/29/2024 05/25/2024 documented as of this encounter (statuses as of 08/10/2024) Immunizations Name Administration Dates Next Due TDAP, [...] money to get more. Never true 04/14/2024 [place] Depression Scale Answer Date Recorded [place] Depression Scale Total 3 02/28/2024 The thought [...] Progress Notes * Lacey Weaver DO - 08/10/2024 9:12 AM EDT Kalie presented today at 32w6d for an ultrasound for the following indications: Obesity in , antepartum Ultrasound for screening for growth restriction 32 weeks gestation of Ultrasound summary: Patient presented at 32w 6d for growth assessment. Normal growth with EFW 2361 g at 79%ile. Normal ANTONIA at 14.4 cm. Cephalic presentation. I reviewed the ultrasound images. Kalie was given the opportunity to meet with me if she had any questions. Please refer to the ultrasound report for additional details about today's ultrasound examination. RECOMMENDATIONS: Recommend follow up ultrasound with MFM in 4-6 weeks for growth secondary to above indications. Weekly NSTs at 37 weeks. See prior formal MFM consultation note. Thank you for allowing us to participate in the care of this patient. Please call with any questions. Lacey Weaver DO 08/10/2024 9:12 AM documented in this encounter Plan of Treatment Upcoming Encounters Date Type Department Care Team (Late st Contact Info) Description 08/18/2024 7:45 AM EDT Office Visit Gynecology/Obstetrics Reggie Adams 132 [place] [address] Sheridan Lord PA-C [address] [address] 09/04/2024 8:30 AM EST Office Visit Gynecology/Obstetrics Reggie Adams 132 [place] [address] Ty Dodson MD [address] [place] [address] 09/07/2024 8:00 AM EST Imaging Maternal Medicine Imaging, Scott Adams 132 [place] [phone] 10/04/2024 10:30 AM EST Office Visit Gynecology/Obstetrics Reggie Adams [address] [place] [address] Backer, NEYDA Lopez [address] [place] [address] Health Maintenance Due Date Last Done Comments [...] restriction screening for growth retardation using ultrasonics 32 weeks gestation of state, incidental documented in this encounter
--- OUTSIDE RECORDS SUMMARY | 2024-09-20 22:29 | External Medical Summary ---
Author Name Unknown Address Unknown Organization K01:LABORATORY C - [address] [place] [address] Laboratory Report Ordering Provider Test Date Status LYLA GOODMAN 08/23/2024 17:15:08 Final Observation Date Value Abnormality Reference (Units ) Status Platelets 08/23/2024 17:15:08 263 140-400 (K /uL) Final Performing Location [facility] - [address] [facility] [place] [address]
--- OUTSIDE RECORDS SUMMARY | 2024-09-20 22:29 | External Medical Summary ---
Author Name Unknown Address Unknown Organization K0G:[facility] [place] [address] [facility] [place] [address] Laboratory Report Ordering Provider Test Date Status LYLA GOODMAN 08/23/2024 16:57:00 Final Observation Date Value Abnormality Reference (Units ) Status Color of Urine by Auto 08/23/2024 16:57:00 Yellow Light Yellow, Yellow Final Clarity, Urine 08/23/2024 16:57:00 Clear Clear Final Glucose [Mass/volume] in Urine by Automated test strip 08/23/2024 16:57:00 Negative Negative (mg/dL) Final Bilirubin.total [Presence] in Urine by Automated test strip 08/23/2024 16:57:00 Negative Negative Final Ketones [Mass/volume] in Urine by Automated test strip 08/23/2024 16:57:00 Negative Negative (mg/dL) Final Specific gravity, Urine 08/23/2024 16:57:00 1.015 1.003-1.030 Final Hemoglobin [Presence] in Urine by Automated test strip 08/23/2024 16:57:00 Negative Negative Final pH, Urine 08/23/2024 16:57:00 7.0 5.0, 5.5, 6.0, 6.5, 7.0, 7.5 (units) Final Protein [Mass/volume] in Urine by Automated test strip 08/23/2024 16:57:00 Negative Negative (mg/dL) Final Urobilinogen, Urine 08/23/2024 16:57:00 0.2 0.2, 1.0 (mg/dL) Final Nitrite [Presence] in Urine by Automated test strip 08/23/2024 16:57:00 Negative Negative Final Leukocyte esterase [Presence] in Urine by Automated test strip 08/23/2024 16:57:00 Trace Abnormal Negative Final Performing Location LAB[facility]ORY [place] 57-[address] [place] [address]
--- OUTSIDE RECORDS SUMMARY | 2024-09-20 22:29 | External Medical Summary ---
Author Name Unknown Address Unknown Organization [facility] - [address] [place] [address] Laboratory Report Ordering Provider Test Date Status AUGUSTUS CARDENAS 07/06/2024 11:01:55 Final Observation Date Value Abnormality Reference (Units ) Status Glucose, 2-hr post glucose challenge 07/06/2024 11:01:55 130 70-154 (mg/dL) Final Performing Location [facility] 0 - [address] [place] [address]
--- OUTSIDE RECORDS SUMMARY | 2024-09-20 22:29 | External Medical Summary ---
Author Name Unknown Address Unknown Organization K01:[facility] - [address] [facility] [address] [address] [address] [place] [address] Laboratory Report Ordering Provider Test Date Status LYLA GOODMAN 08/23/2024 17:15:08 Final Observation Date Value Abnormality Reference (Units ) Status BUN 08/23/2024 17:15:08 8 6-20 (mg/d L) Final Performing Location [facility] - [address] [place] [address]
--- OUTSIDE RECORDS SUMMARY | 2024-09-20 22:29 | External Medical Summary ---
Author Name Unknown Address Unknown Organization K01:LABORATORY [facility] - 100 [facility] [address] Laboratory Report Ordering Provider Test Date Status PEGGY HELLER 08/23/2024 17:15:08 Final Observation Date Value Abnormality Reference (Units ) Status SYNC LEUKOCYTES IN BLOOD BY AUTOMATED COUNT 08/23/2024 17:15:08 10.32 4.00-10.80 (K/uL) Final Segs 08/23/2024 17:15:08 73.3 40.0-75.0 (%) Final Lymphs % 08/23/2024 17:15:08 18.8 18.0-42.0 (%) Final Monos 08/23/2024 17:15:08 6.6 1.0-11.0 (%) Final Eosinophils 08/23/2024 17:15:08 0.5 0.0-6.0 (%) Final Basos 08/23/2024 17:15:08 0.2 0.0-2.0 (%) Final Immature Granulocyte, Percent 08/23/2024 17:15:08 0.6 0.0-2.0 (%) Final Absolute Segs 08/23/2024 17:15:08 7.57 1.80-7.70 (K/uL) Final Lymphs, absolute 08/23/2024 17:15:08 1.94 1.00-4.80 (K/ul) Final Monos, Abs 08/23/2024 17:15:08 0.68 0.00-1.10 (K/uL) Final Eos, Abs 08/23/2024 17:15:08 0.05 0.00-0.70 (K/uL) Final Basos, Abs 08/23/2024 17:15:08 0.02 0.00-0.20 (K/uL) Final Immature Granulocytes, Number 08/23/2024 17:15:08 0.06 0.00-0.20 (K/uL) Final Performing Location LABORATORY [facility] - [address] [facility] [address]
--- OUTSIDE RECORDS SUMMARY | 2024-09-20 22:29 | External Medical Summary ---
Author Name Unknown Address Unknown Organization K01:LABORATORY [facility] - [address] [facility] [address] [place] [address] Laboratory Report Ordering Provider Test Date Status LYLA GOODMAN 08/23/2024 17:15:08 Final Observation Date Value Abnormality Reference (Units ) Status ALT (Alanine aminotransferase) 08/23/2024 17:15:08 15 10-35 (U/L) Final Performing Location [facility] - [address] [place] [address]
--- OUTSIDE RECORDS SUMMARY | 2024-09-20 22:29 | External Medical Summary ---
Author Name Unknown Address Unknown Organization [id number][facility] [address] [place] [address] Laboratory Report Ordering Provider Test Date Status AUGUSTUS CARDENAS 07/06/2024 12:06:29 Final Observation Date Value Abnormality Reference (Units ) Status Glucose [Mass/volume] in Serum or Plasma --3 hours post dose glucose 07/06/2024 12:06:29 117 70-139 (mg/dL) Final Performing Location [facility] 0 - [address] [place] [address]
--- OUTSIDE RECORDS SUMMARY | 2024-09-20 22:29 | External Medical Summary | Summary of Care ---
Author Name Unknown Organization [facility] Address [address] [place] [address] Phone [phone] Care Team Providers Care Mountain Bike Guide Name Role Phone Unavailable Primary Care Provider Unavailabl e Encounter Details Date Type Department Care Team (Late st Contact Info) Description 08/10/2024 8:00 AM EDT Office Visit Railcar Mechanic Obstetrics Maternal Medicine, [address] [place] [address] Lacey Weaver, DO [address] [place], [place] [id number] Obesity in , antepartum*; Ultrasound for screening for growth restriction; 32 weeks gestation of Allergies No known active allergiesdocumented as of this encounter (statuses as of 08/11/2024) Medications Medication Sig Dispensed Refills Start Date [...] as of this encounter (statuses as of 08/11/2024) Active Problems Problem Noted Date Diagnosed Date [...] scheduled between 39-40 weeks gestation. As per [employer]'s 2010 practice [...] as of this encounter (statuses as of 08/11/2024) Resolved Problems Problem Noted Date Diagnosed Date Resolved Date Abnormal GTT (glucose tolerance test) 04/01/2024 07/07/2024 Overview: Failed 1 hour GTT at 13 weeks. 3 hour GTT ordered. with 10 completed weeks gestation 03/07/2024 05/25/2024 History of positive PPD 02/29/2024 05/0 04/2024 Supervision of high risk pre gnancy in first trimester 02/29/2024 05/25/2024 documented as of this encounter (statuses as of 08/11/2024) Immunizations Name Administration Dates Next Due TDAP, [...] money to get more. Never true 04/14/2024 [place] Depression Scale Answer Date Recorded [place] Depression Scale Total 3 02/28/2024 The thought [...] Description 08/23/2024 4:30 PM EDT Office Visit Gynecology/Obstetrics Reggie Adams [address] [place] [address] Sheridan Lord PA-C [address] [place] [address] 09/04/2024 8:30 AM EST Office Visit Gynecology/Obstetrics Reggie Adams [address] [place] [address] Ty Dodson MD [address] [place] [address] 09/07/2024 8:00 AM EST Imaging Maternal Medicine Imaging, Scott Adams [address] [place] [phone] 10/04/2024 10:30 AM EST Office Visit Gynecology/Obstetrics Reggie Adams [address] [place] [address] Backer, NEYDA Lopez [address] [place] [address] Health Maintenance Due Date Last Done Comments [...]
--- OUTSIDE RECORDS SUMMARY | 2024-09-20 22:30 | External Medical Summary ---
Author Name Unknown Address Unknown Organization [id number]:LABORATORY [facility] - [address] [place] [address] Laboratory Report Ordering Provider Test Date Status RONALDBACKER 07/06/2024 09:00:44 Final Observation Date Value Abnormality Reference (Units ) Status WBC, Total 07/06/2024 09:00:44 10.59 4.00-10.8 0 (K/uL) Final RBC 07/06/2024 09:00:44 3.93 3.85-5.15 (M/uL) Final Hemoglobin 07/06/2024 09:00:44 11.5 Below low normal 12 .0-15.3 (g/dL) Final Anemia reflex testing trigge rs on a HGB < 12.0 for Females and HGB < 13.0 for Males in accordance with the WHO Anemia Guidelines
Anemia reflex testing triggers on a HGB < 12.0 for Females and HGB < 13.0 for Males in accordance with the WHO Anemia Guidelines HCT 07/06/2024 09:00:44 36.7 36.0-45.2 (%) Final MCV 07/06/2024 09:00:44 93.4 81.5-97.5 (fL) Final MCH 07/06/2024 09:00:44 29.3 27.0-34.0 (pg) Final MCHC 07/06/2024 09:00:44 31.3 32.0-36.0 (g/dL) Final RDW 07/06/2024 09:00:44 14.3 11.5-15.5 (%) Final Platelets 07/06/2024 09:00:44 260 140-400 (K /uL) Final MPV 07/06/2024 09:00:44 11.3 6.6-11.1 ( fL) Final Nucleated erythrocytes/100 leukocytes [Ratio] in Blood by Automated count 07/06/2024 09:00:44 0 <=0 (/100 WBCs) [facility] Performing Location [facility] - [address] [facility] [address]
--- OUTSIDE RECORDS SUMMARY | 2024-09-20 22:30 | External Medical Summary ---
Author Name Unknown Address Unknown Organization [id number]:[facility] - [address] [place] [address] Laboratory Report Ordering Provider Test Date Status AUGUSTUS CARDENAS 07/06/2024 09:00:44 Final Observation Date Value Abnormality Reference (Units ) Status Ferritin 07/06/2024 09:00:44 13 13-150 (ng /mL) Final Performing Location [facility] - [address] [place] [address]
--- OUTSIDE RECORDS SUMMARY | 2024-09-20 22:30 | External Medical Summary | Summary of Care ---
Author Name Unknown Organization [facility] Address [address] [place] [place] [address] Phone [phone] Care Team Providers Care Belt Brander Name Role Phone Unavailable Primary Care Provider Unavailabl e Encounter Details Date Type Department Care Team (Late st Contact Info) Description 04/12/2024 Telephone Gynecology/Obstetrics [facility] [address] [facility] [place] [address] Pema Mantilla, [facility] [address] Allergies No known active allergiesdocumented as of this encounter (statuses as of 04/12/2024) Medications Medication Sig Dispensed Refills Start Date [...] as of this encounter (statuses as of 04/12/2024) Active Problems Problem Noted Date Diagnosed Date Abnormal GTT (glucose tolerance test) 04/01/2024 Overview: Failed 1 hour GTT at 13 weeks. 3 hour GTT ordered. Supervision of other normal , antepartu m 03/30/2024 with 10 completed weeks gestation 02/22 Obesity in , antepartum 03/06/2024 Overview: Pre gravid BMI: 35.4 Class 2 obesity Recommend low dose ASA daily 1 hour GTT ordered, not yet completed to date Baseline Preeclampsia Labs Lab Results Component Value Date/Time PLT 291 02/28/2024 03:27 PM PROTEIN/ CREATININE RATIO, URINE - [facility] 02/28/2024 03:32 PM Last Assessment & Plan: CONSIDERATIONS: Discussed obstetrical risks associated with class [...] at 37 weeks. Depression complicating , antepartum Overview: History of post depression in 2020 Currently on Lexapro 5mg daily Reports a stable mood in . Denies any suicidal or homicidal ideation. Reports she has a good support system at home. Last Assessment & Plan: ANXIETY AND DEPRESSION CONSIDERATIONS: Untreated maternal anxiety [...] to behavioral health services as clinically indicated. Supervision of high risk in [facility] 02/29/2024 History of gestational hypertension 02/29/2024 Overview: History of gestational hypertension First , 2020, induced at 39 weeks Currently no BP medications Recommend daily low dose ASA Baseline Preeclampsia Labs Lab Results Component Value Date/Time PLT 291 02/28/2024 03:27 PM PROTEIN/ CREATININE RATIO, URINE [facility] 74 02/28/2024 03:32 PM BP Readings from [...] scheduled between 39-40 weeks gestation. As per [employer]'s 2010 practice [...] as of this encounter (statuses as of 04/12/2024) Resolved Problems Problem Noted Date Diagnosed Date Resolved Date History of positive PPD 02/29/2024 05/0 04/2024 documented as of this encounter (statuses as of 04/12/2024) Social History Tobacco Use Types Packs/Day Years Used Date Smoking Tobacco: Never Smokeless Tobacco: Never Alcohol Use Standard Drinks/Week Comments Not Currently 0 (1 standard drink = 0.6 oz pur e alcohol) Hunger Vital Sign Answer Date Recorded Within the past 12 months, y ou worried that your food would run out before you got the money to buy more. Never true 02/10/20 24 Within the past 12 months, t he food you bought just didn't last and you didn't have money to get more. Never true 02/10/2024 [place] Depression Scale Answer Date Recorded [place] Depression Scale Total 3 02/28/2024 The thought of harming myself has occurred to me . Never 02/28/2024 Childcare Answer Date Recorded Do you feel overwhelmed with taking care of a child, family member or friend? No 02/10/2024 Does your family need help f inding childcare? (Household - for ages 0-17 years) Not on file 02/10/2024 Clothing Answer Date Recorded Have you been unable to get clothing when it was really needed? No 02/10/2024 Is your family able to get c lothes or diapers when needed? (Household - for ages 0-17 years) Not on file 02/10/2024 Personal Safety Answer Date Recorded Do you feel unsafe or have concerns for your saf ety? No 02/10/2024 Do you have concerns for you r family's safety? (Household - for ages 0-17 years) Not on file 02/10/2024 Utilities Answer Date Recorded Do you have trouble paying y our heating, water, or electric bill? No 02/10/2024 Is your family able to pay t he heat, water, or electric bill? (Household - for ages 0-17 years) Not on file 02/10/2024 Does your family have access to good internet? (Household - for ages 0-17 years) Not on file 02/10/2024 Employment Status Answer Date Recorded Are you unemployed or without regular income? No 02/10/2024 Does the household have a re gular source of income? (Household - for ages 0-17 years) Not on file 02/10/2024 Social Connections Answer Date Recorded How often do you feel lonely or isolated from th ose around you? Never 02/10/2024 Financial Resource Strain Answer Date R ecorded Do you have any trouble payi ng for your medications, or do you think you might in the future? No 02/10/2024 Does your family have troubl e paying for medicine? (Household - for ages 0-17 years) Not on file 02/10/2024 Transportation Needs Answer Date Record ed READ ONLY Do you have troubl e getting a ride to medical visits or work? Never True 02/10/2024 Does your family have a hard time getting a ride to doctors visits? (Household - for ages 0-17 years) Not on file 02/10/2024 Has lack of transportation k ept you from medical appointments, meetings, work, or from getting things needed for daily living? Check all that apply. (Adult - for ages 18 years and over) Not on file 02/10/2024 Do you (or your family) have trouble finding or paying for a ride (transportation)? (Household - for ages 0-17 years) Not on file 02/10/2024 Housing Stability Answer Date Recorded Do you currently live in a s helter or have no steady place to sleep at night? No 02/10/2024 READ ONLY Do you think you a re at risk of becoming homeless? No 02/10/2024 Does your family worry about paying for your home or becoming homeless? (Household - for ages 0-17 years) Not on file 0 02/10/2024 Are you homeless or worried that you might be in the future? (Adult - for ages 18 years and over) Not on file Are you (or your family) allie eless or worried that you might be in the future? (Household - for ages 0-17 years) Not on file Food Insecurity Answer Date Recorded Do you need food for this week? No 02/10/2024 Are you able to get enough f ood for your family? (Household - for ages 0-17 years) Not on file 02/10/2024 Does your family need food t his week? (Household - for ages 0-17 years) Not on file 02/10/2024 Do you always have enough fo od for your family? (Household - for ages 0-17 years) Not on file 02/10/2024 Estimated Date of Delivery Comme nts Yes [...] encounter Miscellaneous Notes * Telephone Encounter - Claire Zamorano RN - 04/12/2024 9:17 AM EDT Pt aware. * Telephone Encounter - Iqra Lopez LPN - 04/12/2024 9:03 AM EDT ----- Message from Pema Mantilla sent at 04/11/2024 5:13 PM EDT ----- Please let patient know she passed her 3 hour glucose screen. Her 3 hour BG was low at 51. Please make sure she is monitoring for signs of hypoglycemia such as shaking, dizziness, sweatiness, anxiety, hunger, etc. Thank you! We will repeat her 3 hour GTT at 28 weeks. Pema Mantilla CNM documented in this encounter Plan of Treatment Upcoming Encounters Date Type Department Care Team (Late st Contact Info) Description 04/28/2024 9:00 AM EDT Office Visit Gynecology/Obstetrics [facility] [address] [place] [address] Sheridan Lord PA-C [address] [place] [address] 05/15/2024 9:30 AM EDT Office Visit Roofing Contractor Obstetrics Maternal Medicine, [facility] [address] [place] [address] Paulie Proctor MD [address] [place] [address] 05/15/2024 9:30 AM EDT Imaging Radiology [facility] [address] [place] [address] Health Maintenance Due Date Last Done Comments Depression Monitoring 2007 DTaP,Tdap,and Td Vaccines (1 - Tdap) 2014 Hepatitis B (1 of 3 - 19+ 3- dose series) 2014 COVID-19 Vaccine ( - 2022-2 4 season) 2023 Influenza Vaccine (FLU shot) (Season Ended) 2024 Pap Smear 02/27/2027 02/28/2024 GARDASIL-HPV IMMUNIZATION SERIES Aged Out No longer eligible based on [...]
--- OUTSIDE RECORDS SUMMARY | 2024-09-20 22:30 | External Medical Summary ---
Author Name Unknown Address Unknown Organization [id number]:LABORATORY [facility] - [address] [place] [address] Laboratory Report Ordering Provider Test Date Status AUGUSTUS CARDENAS 07/06/2024 09:00:44 Final Observation Date Value Abnormality Reference (Units ) Status Vitamin B12 07/06/2024 09:00:44 [phone] (pg/mL) Final Performing Location [facility] - [address] [place] [address]
--- OUTSIDE RECORDS SUMMARY | 2024-09-20 22:30 | External Medical Summary | Summary of Care ---
Author Name Unknown Organization [facility] Address [address] [facility] [place] [address] Phone [phone] Care Team Providers Care Power Press Supervisor Name Role Phone Unavailable Primary Care Provider Unavailabl e Reason for Visit * Reason Comments Return Visit Encounter Details Date Type Department Care Team (Late st Contact Info) Description 06/21/2024 7:45 AM EDT Office Visit Gynecology/Obstetric s Reggie Adams [address] [place] [address] Sheridan Lord PA-C [address] [place] [address] Supervision of other normal , antepartum*; Depression complicating , antepartum; History of gestational hypertension; History of section complicating ; Obesity in , antepartum; Abnormal GTT (glucose tolerance test) Allergies No known active allergiesdocumented as of this encounter (statuses as of 06/21/2024) Medications Medication Sig Dispensed Refills Start Date [...] as of this encounter (statuses as of 06/21/2024) Active Problems Problem Noted Date Diagnosed Date [...] Plan: -Early 1-hr GCT 147, 3-hr OGTT 1/4 elevated -Repeat OGTT at 26-28 weeks Depression [...] scheduled between 39-40 weeks gestation. As per [employer]'s 2010 practice [...] as of this encounter (statuses as of 06/21/2024) Resolved Problems Problem Noted Date Diagnosed Date Resolved Date with 10 completed weeks gestation 03/07/2024 05/25/2024 History of positive PPD 02/29/2024 050 04/2024 Supervision of high risk pre gnancy in first trimester 02/29/2024 05/25/2024 documented as of this encounter (statuses as of 06/21/2024) Social History Tobacco Use Types Packs/Day Years [...] money to get more. Never true 04/14/2024 [place] Depression Scale Answer Date Recorded [place] Depression Scale Total 3 02/28/2024 The thought [...] Sign Reading Time Taken Comments Blood Pressure 128/78 06/21/2024 7:53 AM EDT Pulse - - Temperature - - Respiratory Rate - - Oxygen Saturation - - Inhaled Oxygen Concentration - - Weight 99.7 kg (219 lb 12.8 oz) 06/21/2024 7:53 AM EDT Height - - Body Mass Index 38.94 05/26/2024 9:24 AM EDT documented in this encounter Progress Notes * Sheridan Lord PA-C - 06/21/2024 7:57 AM EDT 25w5d Plans to complete lab third tri labs including 3 hour gtt on Wednesday. Advised okay as she will be 26weeks. Failed early 1 hour gtt, passed 3 hour gtt. Following with MFM, continues growth q4-6 weeks. Plans repeat C/S with tubal. Reviewed Tdap next visit. Denies LOF, VB. Baby is active. Some BH contractions. RTC in 3 weeks. Sheridan Lord PA-C * Noreen Landeros CMA - 06/21/2024 7:53 AM EDT 25w5d Denies any concerns documented in this encounter Plan of Treatment Upcoming Encounters Date Type Department Care Team (Late st Contact Info) Description 06/23/2024 9:00 AM EDT [facility] [address] [place] [phone] Reza Adams [address] [place] [address] 07/13/2024 8:45 AM EDT Office Visit Truck Greaser Obstetrics Maternal Medicine, [place] [address] [place] [address] Paulie Proctor MD [address] [place] [address] 07/13/2024 8:45 AM EDT Imaging Maternal Medicine Imaging, Scott Adams [address] [place] [phone] 07/14/2024 7:45 AM EDT Office Visit Gynecology/Obstetrics Reggie Adams [address] [place] [address] Sheridan Lord PA-C [address] [place] [address] 08/10/2024 8:00 AM EDT Imaging Maternal Medicine Imaging, Scott Adams [address] [place] [phone] 09/07/2024 8:00 AM EST Imaging Maternal Medicine Imaging, Scott Adams [address] [place] [address] Health Maintenance Due Date Last Done Comments Depression Monitoring 2007 DTap/Tdap Vaccines (1 - Tdap) 2014 Hepatitis B Vaccine (1 of 3 - 19+ 3-dose series) 2014 COVID-19 Vaccine (2022-2 4 season) 2023 Influenza Vaccine (FLU shot) (#1) 2024 Pap [...] or the puerperium, antepartum condition or complication Abnormal GTT (glucose tolerance test) Impaired glucose tolerance test documented in this encounter
--- OUTSIDE RECORDS SUMMARY | 2024-09-20 22:30 | External Medical Summary ---
Author Name Unknown Address Unknown Organization K[facility] [address] [place] [address] Laboratory Report Ordering Provider Test Date Status MARIANO BANUELOS 04/11/2024 12:06:34 Final Observation Date Value Abnormality Reference (Units ) Status Glucose [Mass/volume] in Serum or Plasma --3 hours post dose glucose 04/11/2024 12:06:34 51 Below low normal 70-139 (mg/dL) Final Performing Location [facility] 0 - [address] [place] [address]
--- OUTSIDE RECORDS SUMMARY | 2024-09-20 22:30 | External Medical Summary | Summary of Care ---
Author Name Unknown Organization [facility] Address [address] [facility] [address] Phone [phone] Care Team Providers Care Environmental Services Lead Name Role Phone Unavailable Primary Care Provider Unavailabl e Reason for Visit * Reason Comments Outpatient Testing Encounter Details Date Type Department Care Team (Late st Contact Info) Description 04/11/2024 8:30 AM EDT Laboratory Laboratory, [facility] [address] [facility] [place] [phone] [facility] [place] [address] Abnormal GTT (glucose tolerance test) Allergies No known active allergiesdocumented as of this encounter (statuses as of 04/11/2024) Medications Medication Sig Dispensed Refills Start Date [...] as of this encounter (statuses as of 04/11/2024) Active Problems Problem Noted Date Diagnosed Date [...] clinically indicated. Supervision of high risk in first trim mary kate 02/29/2024 History of gestational hypertension 02/29/2024 Overview: [...] scheduled between 39-40 weeks gestation. As per [employer] [employer]'s 2010 practice [...] as of this encounter (statuses as of 04/11/2024) Resolved Problems Problem Noted Date Diagnosed Date Resolved Date History of positive PPD 02/29/2024 05/0 04/2024 documented as of this encounter (statuses as of 04/11/2024) Social History Tobacco Use Types Packs/Day Years [...] money to get more. Never true 02/10/2024 [place] Depression Scale Answer Date Recorded [place] Depression Scale Total 3 02/28/2024 The thought [...] 04/28/2024 9:00 AM EDT Office Visit Gynecology/Obstetrics [facility] [address] [place] [address] Sheridan Lord PA-C [address] [place] [address] 05/15/2024 9:30 AM EDT Office Visit Marine Meteorologist Obstetrics Maternal Medicine, [place] [address] [place] [address] Paulie Proctor MD [address] [place] [address] 05/15/2024 9:30 AM EDT Imaging Radiology [place] [address] [place], [place] [id number] Pending Results Name Type Priority Associated Diagnoses Date /Time GESTATIONAL GLUCOSE TOLERANCE, 3 HOUR Lab Routine Abnormal GTT (glucose tolerance test) 04/11/2024 8:47 AM EDT 100-G GESTATIONAL GLUCOSE, 1 HOUR Lab Routine Abnormal GTT (glucose tolerance test) 04/11/2024 9:52 AM EDT 100-G GESTATIONAL GLUCOSE, 2 HOUR Lab Routine Abnormal GTT (glucose tolerance test) 04/11/2024 10:51 AM EDT Scheduled Orders Name Type Priority Associated Diagnoses Orde r Schedule 100-G GESTATIONAL GLUCOSE, 3 HOUR Lab Routine Abnormal GTT (glucose tolerance test) Ordered: 04/11/2024 Health Maintenance Due Date Last Done Comments Depression Monitoring 2007 DTaP,Tdap,and Td Vaccines (1 - Tdap) 2014 Hepatitis B (1 of 3 - 19+ 3- dose series) 2014 COVID-19 Vaccine (2022-2 4 season) [...] Diagnosis Comments 100-G GESTATIONAL GLUCOSE, FASTING Routine 04/11/2024 8:47 AM EDT Abnormal GTT (glucose tolerance test) documented in this encounter Results * 100-G GESTATIONAL GLUCOSE, FASTING (04/11/2024 8:47 AM EDT) 100-g Gestational Glucose, Fasting 91 70 - 94 mg/dL 04/11/2024 10:27 AM EDT [facility] Blood Venous blood specimen / Unknown Venipuncture / Unknown 04/11/2024 8:47 AM EDT 04/11/2024 8:47 AM EDT Narrative [facility]10 - 04/11/2024 10:27 AM EDT Based on ACOG guideline, gestational diabetes mellitus is diagnosed when any of the following is met: Fasting is greater than or equal to 95 mg/dL 1 hour is greater than or equal to 180 mg/dL 2 hour is greater than or equal to 155 mg/dL 3 hour is greater than or equal to 140 mg/dL Pema Mantilla CNM LAB BLOOD ORDERABLES [facility] [facility] [place] [address] documented in this encounter Visit Diagnoses Diagnosis Abnormal GTT (glucose tolerance test) Impaired glucose tolerance test documented in this encounter
--- OUTSIDE RECORDS SUMMARY | 2024-09-20 22:30 | External Medical Summary | Summary of Care ---
Author Name Unknown Organization [facility] Address [address] [place] [address] Phone [phone] Care Team Providers Care Ruby Rails Developer Name Role Phone Unavailable Primary Care Provider Unavailabl e Reason for Visit * Reason Comments Ultrasound Encounter Details Date Type Department Care Team (Late st Contact Info) Description 05/15/2024 9:30 AM EDT Office Visit [employer] Combination Teacher Obstetrics Maternal Medicine, [place] [address] [place], [place] [phone] Paulie Proctor MD [address], [place] [phone] Obesity in , antepartum*; Class 2 obesity; Supervision of other normal , antepartum; History of gestational hypertension; Depression complicating , antepartum; 20 weeks gestation of ; Encounter for anatomic survey Allergies No known active allergiesdocumented as of this encounter (statuses as of 05/15/2024) Medications Medication Sig Dispensed Refills Start Date [...] as of this encounter (statuses as of 05/15/2024) Active Problems Problem Noted Date Diagnosed Date Abnormal GTT (glucose tolerance test) 04/01/2024 Overview: Failed 1 hour GTT at 13 weeks. 3 hour GTT ordered. Supervision of other normal , antepartu m 03/30/2024 Last Assessment & Plan: -low risk Qnatal with 10 completed weeks gestation 02/22 Obesity [...] Plan: -Early 1-hr GCT 147, 3-hr OGTT 10/28 elevated -Repeat OGTT at 26-28 weeks Depression complicating , antepartum Overview: History of post depression in 2020 Currently on Lexapro 5mg daily Reports a stable mood in . Denies any suicidal or homicidal ideation. Reports she has a good support system at home. Last Assessment & Plan: -Mood stable, no acute concerns Supervision of high risk in first trim [...] scheduled between 39-40 weeks gestation. As per [employer]'s 2010 practice [...] as of this encounter (statuses as of 05/15/2024) Resolved Problems Problem Noted Date Diagnosed Date Resolved Date History of positive PPD 02/29/2024 05/0 04/2024 documented as of this encounter (statuses as of 05/15/2024) Social History Tobacco Use Types Packs/Day Years [...] money to get more. Never true 04/14/2024 [place] Depression Scale Answer Date Recorded [place] Depression Scale Total 3 02/28/2024 The thought [...] No 04/14/2024 Does the household have a [facility] source of income? (Household - for [...] No 04/14/2024 Are you (or your family) lalie eless or worried that you might be [...] as of this encounter Progress Notes * Sudhakar He MD - 05/15/2024 10:43 AM EDT MATERNAL MEDICINE VISIT Kalie Rosales, 28 year old is at 20w3d who presents to [facility] for an ultrasound and follow-up of her high risk . REVIEW OF SYSTEMS: nausea/vomitting: denies reports movement: yes abdominal pain/tenderness/cramping/contractions: no vaginal bleeding: no vaginal leaking of fluid: no PHYSICAL EXAM: LMP 12/24/2023 General: pleasant, alert and oriented Neuro: mood and affect normal, alert and oriented, no acute distress She is being seen today by Maternal- Medicine for the following reasons: Problem List Items Addressed This Visit Digestive Obesity in , antepartum - Primary -Early 1-hr GCT 147, 3-hr OGTT 1/4 elevated -Repeat OGTT at 26-28 weeks Other Depression complicating , antepartum -Mood stable, no acute concerns History of gestational hypertension Class 2 obesity Supervision of other normal , antepartum -low risk Qnatal Other Visit Diagnoses 20 weeks gestation of Encounter for anatomic survey Ultrasound Report Summary anatomy appears normal for visualized structures. size is normal for gestational age, EFW at 63 %, AC 62%. Amniotic Fluid is normal The ultrasound report for today's visit will be scanned into the [facility] records. Please see separate report for details. We reviewed today's ultrasound findings. (For full report, please refer to ultrasound report provided separately). Ms. Rosales's questions were answered to her satisfaction. Cell free DNA screening: low risk result RECOMMENDATIONS: Recommend follow up MFM growth scan in 4 weeks Thank you for allowing us to participate in the care of this patient. Please call with any questions. The patient's history, examination and plan of care were discussed with Dr. Proctor who saw her with me. Sudhakar He MD 05/15/2024 10:45 AM I have discussed the patient's management with the medical trainee and agree with the note. Please refer to the documented findings and plan of care. This patient's visit today consisted of an evaluation and a diagnostic. I was present and confirmed the findings of the history and exam. I have reviewed the interpretation of the diagnostic study. I reviewed the ultrasound with her. The anatomy that was visualized appears unremarkable and the biometry is appropriate for the gestational age. The amniotic fluid volume is subjectivelynormal and the fetus is in the vertex presentation. Paulie Proctor MD 05/15/2024 10:59 AM Paulie Proctor MD documented in this encounter Miscellaneous Notes * Assessment & Plan Note - Sudhakar He MD - 05/15/2024 10:43 AM EDTAssociated Problem(s): Depression complicating , antepartum -Mood stable, no acute concerns * Assessment & Plan Note - Sudhakar He MD - 05/15/2024 10:24 AM EDTAssociated Problem(s): Obesity in , antepartum -Early 1-hr GCT 147, 3-hr OGTT 1/4 elevated -Repeat OGTT at 26-28 weeks * Assessment & Plan Note - Sudhakar He MD - 05/15/2024 10:24 AM EDTAssociated Problem(s): Supervision of other normal , antepartum -low risk Qnatal documented in this encounter Plan of Treatment Upcoming Encounters Date Type Department Care Team (Late st Contact Info) Description 05/26/2024 8:45 AM EDT Office Visit Gynecology/Obstetrics Reggie Adams [address] [place] [phone] Back[place], NEYDA Lopez [address] [place] [phone] 06/15/2024 8:00 AM EDT Imaging Maternal Medicine Imaging, [place] Adams [address] [place] [phone] 07/10/2024 9:15 AM EDT Office Visit [employer] Combination Teacher Obstetrics Maternal Medicine, [place] [address] [place] [address] Paulie Proctor MD [address] [place] [address] 07/10/2024 9:15 AM EDT Imaging Radiology [facility], [place] [address] [place] [address] 08/10/2024 8:00 AM EDT Imaging Maternal Medicine Imaging, Scott Adams [address] [place] [phone] 09/07/2024 8:00 AM EST Imaging Maternal Medicine Imaging, [facility] [address] [place] [address] Scheduled Orders Name Type Priority Associated Diagnoses Orde r Schedule MFM US PREG FOLLOW UP EACH FETUS Medical Imaging Routine Obesity in , antepartum Class 2 obesity Supervision of other normal , antepartum History of gestational hypertension Depression complicating , antepartum 20 weeks gestation of Encounter for anatomic survey 6 Occurrences starting 05/15/2024 until 09/29/2024 Health Maintenance Due Date Last Done Comments [...] of state, incidental Encounter for anatomic survey documented in this encounter
--- OUTSIDE RECORDS SUMMARY | 2024-09-20 22:30 | External Medical Summary | Summary of Care ---
Author Name Unknown Organization [facility] Address [address] [place] [address] Phone [phone] Care Team Providers Care Case Picker Name Role Phone Unavailable Primary Care Provider Unavailabl e Encounter Details Date Type Department Care Team (Late st Contact Info) Description 06/15/2024 8:00 AM EDT Office Visit Telephone Diaphragm Assembler Obstetrics Maternal Medicine, [address] [place] [address] Lacey Weaver, DO [address] [place], [place] [phone] Obesity in , antepartum*; 24 weeks gestation of ; Ultrasound for screening for growth restriction Allergies No known active allergiesdocumented as of this encounter (statuses as of 06/15/2024) Medications Medication Sig Dispensed Refills Start Date [...] as of this encounter (statuses as of 06/15/2024) Active Problems Problem Noted Date Diagnosed Date [...] Plan: -Early 1-hr GCT 147, 3-hr OGTT /4 elevated -Repeat OGTT at 26-28 weeks Depression [...] scheduled between 39-40 weeks gestation. As per [employer]'s 2010 practice [...] as of this encounter (statuses as of 06/15/2024) Resolved Problems Problem Noted Date Diagnosed Date Resolved Date with 10 completed weeks gestation 03/07/2024 05/25/2024 History of positive PPD 02/29/2024 05/0 04/2024 Supervision of high risk pre gnancy in first trimester 02/29/2024 05/25/2024 documented as of this encounter (statuses as of 06/15/2024) Social History Tobacco Use Types Packs/Day Years [...] money to get more. Never true 04/14/2024 [place] Depression Scale Answer Date Recorded [place] Depression Scale Total 3 02/28/2024 The thought [...] No 04/14/2024 Does the household have a [facility] source of income? (Household - for [...] of this encounter Progress Notes * Lacey Weaver, DO - 06/15/2024 9:33 AM EDT Kalie presented today at 24w6d for an ultrasound for the following indications: Obesity in , antepartum 24 weeks gestation of Ultrasound for screening for growth restriction Ultrasound summary: Patient presented at 24w 6d for growth assessment. Normal growth with EFW 698 g at 24%ile. Normal ANTONIA at 11.5 cm. Breech presentation. I reviewed the ultrasound images. Kalie was given the opportunity to meet with me if she had any questions. Please refer to the ultrasound report for additional details about today's ultrasound examination. RECOMMENDATIONS: Recommend follow up ultrasound with MFM in 4-6 weeks for growth secondary to above indications. See prior formal MFM consultation note. Thank you for allowing us to participate in the care of this patient. Please call with any questions. Lacey Weaver DO 06/15/2024 9:33 AM documented in this encounter Plan of Treatment Upcoming Encounters Date Type Department Care Team (Late st Contact Info) Description 06/23/2024 9:00 AM EDT [facility] [address] [place] [phone] Reza Adams [address] [place] [address] 06/23/2024 1:30 PM EDT [facility] [address] [place] [address] BackerLarisa CRNP [address] [place] [address] 07/13/2024 8:45 AM EDT Office Visit Telephone Diaphragm Assembler Obstetrics Maternal Medicine, [place] [address] [place] [address] Paulie Proctor MD [address] [place] [address] 07/13/2024 8:45 AM EDT Imaging Maternal Medicine Imaging, [place] [address] [place] [phone] 08/10/2024 8:00 AM EDT Imaging Maternal Medicine Imaging, [place] [address] [place] [phone] 09/07/2024 8:00 AM EST Imaging Maternal Medicine Imaging, [place] [address] [place] [phone] Health Maintenance Due Date Last Done Comments Depression Monitoring 2007 DTaP,Tdap,and Td Vaccines (1 - Tdap) 2014 Hepatitis B Vaccine (1 of 3 - 19+ 3-dose series) 2014 COVID-19 Vaccine (1 - 2022-2 4 season) 2023 Influenza Vaccine [...] or the puerperium, antepartum condition or complication 24 weeks gestation of state, incidental Ultrasound for screening for growth restriction screening for growth retardation using ultrasonics documented in this encounter
--- OUTSIDE RECORDS SUMMARY | 2024-09-20 22:30 | External Medical Summary ---
Author Name Unknown Address Unknown Organization [id number]:LABORATORY [facility] [place] [address] [place] [address] Laboratory Report Ordering Provider Test Date Status AUGUSTUS CARDENAS 07/06/2024 09:00:44 Final Based on ACOG guideline, ges tational diabetes mellitus is diagnosed when any of the following is met:
Fasting is greater than or equal to 95 mg/dL
1 hour is greater than or equal to 180 mg/dL
2 hour is greater than or equal to 155 mg/dL
3 hour is greater than or equal to 140 mg/dL Observation Date Value Abnormality Reference (Units ) Status Glucose, fasting 07/06/2024 09:00:44 85 70- 94 (mg/dL) Final Performing Location LABORATORY [facility] [place] [address] - [address] [place] [address]
--- OUTSIDE RECORDS SUMMARY | 2024-09-20 22:30 | External Medical Summary | Summary of Care ---
Author Name Unknown Organization [facility] Address [address] [place] [address] Phone [phone] Care Team Providers Care Neuropsychiatric Aide Name Role Phone Unavailable Primary Care Provider Unavailabl e Encounter Details Date Type Department Care Team (Late st Contact Info) Description 06/15/2024 8:00 AM EDT Office Visit Shadowgraph Scale Operator Obstetrics Maternal Medicine, [address] [place] [address] Lacey Weaver, DO [address] [place], [place] [phone] Obesity in , antepartum*; 24 weeks gestation [...] money to get more. Never true 04/14/2024 [place] Depression Scale Answer Date Recorded [place] Depression Scale Total 3 02/28/2024 The thought [...] No 04/14/2024 Does the household have a [facility] source of income? (Household - for [...] Description 06/23/2024 9:00 AM EDT [facility] [address] [place] [phone] Reza Adams [address] [place] [address] 06/23/2024 1:30 PM EDT [facility] [address] [place] [address] BackerLarisa CRNP [address] [place] [address] 07/13/2024 8:45 AM EDT Office Visit Shadowgraph Scale Operator Obstetrics Maternal Medicine, [place] [address] [place] [address] Paulie Proctor MD [address] [place] [address] 07/13/2024 8:45 AM EDT Imaging Maternal Medicine Imaging, [place] [address] [place] [phone] 08/10/2024 8:00 AM EDT Imaging Maternal Medicine Imaging, [place] Adams [address] [place] [phone] 09/07/2024 8:00 AM EST Imaging Maternal Medicine Imaging, [place] [address] [place] [phone] Health Maintenance Due Date Last Done Comments [...]
--- OUTSIDE RECORDS SUMMARY | 2024-09-20 22:30 | External Medical Summary ---
Author Name Unknown Address Unknown Organization [id number]:LABORATORY [facility] - [address] [place] [address] Laboratory Report Ordering Provider Test Date Status AUGUSTUS CARDENAS 07/06/2024 09:00:44 Final Observation Date Value Abnormality Reference (Units ) Status Folic Acid 07/06/2024 09:00:44 14.1 >4.5 (ng/ mL) Final Performing Location LABORATORY [facility] - [address] [place] [address]
--- OUTSIDE RECORDS SUMMARY | 2024-09-20 22:30 | External Medical Summary ---
Author Name Unknown Address Unknown Organization [id number]:[facility] [place] [address] [place] [address] Laboratory Report Ordering Provider Test Date Status AUGUSTUS CARDENAS 07/06/2024 09:00:44 Final Observation Date Value Abnormality Reference (Units ) Status Iron 07/06/2024 09:00:44 50 33-151 (ug/dL) Final Iron-binding capacity 07/06/2024 09:00:44 456 Above high normal 250-425 (ug/dL) Final Transferrin Sat % 07/06/2024 09:00:44 11 Below low normal 15-55 (%) Final Performing Location LABORATORY C - [address] [place] [address]
--- OUTSIDE RECORDS SUMMARY | 2024-09-20 22:30 | External Medical Summary | Summary of Care ---
Author Name Unknown Organization [facility] Address [address] [facility] [place] [address] Phone [phone] Care Team Providers Care Manager Presentation Name Role Phone Unavailable Primary Care Provider Unavailabl e Reason for Visit * Reason Comments Return Visit Encounter Details Date Type Department Care Team (Late st Contact Info) Description 04/28/2024 9:00 AM EDT Office Visit Gynecology/Obstetric s Reggie Adams [address] [place] [address] Sheridan Lord PA-C [address] [place] [address] Supervision of other normal , antepartum*; Depression complicating , antepartum; History of gestational hypertension; Class 2 obesity; History of section complicating ; Obesity in , antepartum Allergies No known active allergiesdocumented as of this encounter (statuses as of 04/28/2024) Medications Medication Sig Dispensed Refills Start Date [...] as of this encounter (statuses as of 04/28/2024) Active Problems Problem Noted Date Diagnosed Date [...] scheduled between 39-40 weeks gestation. As per [employer]'s 2010 practice [...] as of this encounter (statuses as of 04/28/2024) Resolved Problems Problem Noted Date Diagnosed Date Resolved Date History of positive PPD 02/29/2024 05/0 04/2024 documented as of this encounter (statuses as of 04/28/2024) Social History Tobacco Use Types Packs/Day Years [...] money to get more. Never true 04/14/2024 [place] Depression Scale Answer Date Recorded [place] Depression Scale Total 3 02/28/2024 The thought [...] Sign Reading Time Taken Comments Blood Pressure 116/72 04/28/2024 9:00 AM EDT Pulse - - Temperature - - Respiratory Rate - - Oxygen Saturation - - Inhaled Oxygen Concentration - - Weight 95.5 kg (210 lb 9.6 oz) 04/28/2024 9:00 A M EDT Height - - Body Mass Index 37.31 03/30/2024 10:16 AM EDT documented in this encounter Progress Notes * Sheridan Lord PA-C - 04/28/2024 9:12 AM EDT 18w0d Anatomy with MFM. Reviewed MSAFP for ONTD screening, patient declines. Would like repeat C/S and bilateral tubal. Reports family status complete. Nausea improving. Some occasional lower belly pain with movement that resolves quickly and not reproducible. Denies VB, LOF, contractions. + quickening. RTC in 4 weeks Sheridan Lord PA-C * Noreen Landeros MED ASSIST - 04/28/2024 9:00 AM EDT 18w0d Denies vaginal bleeding/rom + movements + nausea occasionally in mornings with dry heaving No new concerns documented in this encounter Plan of Treatment Upcoming Encounters Date Type Department Care Team (Late st Contact Info) Description 05/15/2024 9:30 AM EDT Office Visit Inside Sales Director Obstetrics Maternal Medicine, [address] [place] [address] Paulie Proctor MD [address] [place] [address] 05/15/2024 9:30 AM EDT Imaging Radiology Komal Vickers [address] [place] [address] 05/26/2024 8:45 AM EDT Office Visit Gynecology/Obstetrics Reggie Adams [address] [facility] [place] [address] Larisa Bartlett CRNP [address] [place] [address] Health Maintenance Due Date Last Done Comments Depression Monitoring 2007 DTaP,Tdap,and Td Vaccines (1 - Tdap) 2014 Hepatitis B Vaccine (1 of 3 - 19+ 3-dose series) 2014 COVID-19 Vaccine ( - 2022-2 [...] of mother, antepartum History of gestational hypertension Class 2 obesity History of section complicating Previous delivery, unspecified as to episode of care or not applicable Obesity in , antepartum Obesity complicating , childbirth, or the puerperium, antepartum condition or complication documented in this encounter
--- OUTSIDE RECORDS SUMMARY | 2024-09-20 22:30 | External Medical Summary ---
Author Name Unknown Address Unknown Organization K01:LABORATORY [facility] - [address] [facility] [address] Laboratory Report Ordering Provider Test Date Status RONALDBACKER 07/06/2024 09:00:44 Final Observation Date Value Abnormality Reference (Units ) Status SYNC LEUKOCYTES IN BLOOD BY AUTOMATED COUNT 07/06/2024 09:00:44 10.59 4.00-10.80 (K/uL) Final Segs 07/06/2024 09:00:44 73.5 40.0-75.0 (%) Final Lymphs % 07/06/2024 09:00:44 19.1 18.0-42.0 (%) Final Monos 07/06/2024 09:00:44 5.8 1.0-11.0 (%) Final Eosinophils 07/06/2024 09:00:44 0.8 0.0-6.0 (%) Final Basos 07/06/2024 09:00:44 0.3 0.0-2.0 (%) Final Immature Granulocyte, Percent 07/06/2024 09:00:44 0.5 0.0-2.0 (%) Final Absolute Segs 07/06/2024 09:00:44 7.80 Above high normal 1.80-7.70 (K/uL) Final Lymphs, absolute 07/06/2024 09:00:44 2.02 1.00-4.80 (K/ul) Final Monos, Abs 07/06/2024 09:00:44 0.61 0.00-1.10 (K/uL) Final Eos, Abs 07/06/2024 09:00:44 0.08 0.00-0.70 (K/uL) Final Basos, Abs 07/06/2024 09:00:44 0.03 0.00-0.20 (K/uL) Final Immature Granulocytes, Number 07/06/2024 09:00:44 0.05 0.00-0.20 (K/uL) Final Performing Location LABORATORY [facility] - [address] [facility] [address]
--- OUTSIDE RECORDS SUMMARY | 2024-09-20 22:30 | External Medical Summary | Summary of Care ---
Author Name Unknown Organization [facility] Address [address] [place] [address] Phone [phone] Care Team Providers Care Instrumentation And Controls Technician Name Role Phone Unavailable Primary Care Provider Unavailabl e Reason for Visit * Reason Comments Ultrasound Encounter Details Date Type Department Care Team (Late st Contact Info) Description 05/15/2024 9:30 AM EDT Office Visit Account Support Manager Obstetrics Maternal Medicine, [place] [address] [place], [place] [phone] Paulie Proctor MD [address] [place], [place] [phone] Obesity in , antepartum*; Class 2 obesity; [...] scheduled between 39-40 weeks gestation. As per [employer]'s 2010 practice [...] money to get more. Never true 04/14/2024 [place] Depression Scale Answer Date Recorded [place] Depression Scale Total 3 02/28/2024 The thought [...] Does the household have a [facility] source of income? (Household - for [...] old is at 20w3d who presents to [facility] for an ultrasound and follow-up of [...] today's visit will be scanned into the [facility] records. Please see separate report for [...] Reggie Adams [address] [place] [address] Backer, NEYDA Lopez [address] [place] [address] 06/15/2024 8:00 AM EDT Imaging Maternal Medicine Imaging, Scott Adams [address] [place] [phone] 07/10/2024 9:15 AM EDT Office Visit Account Support Manager Obstetrics Maternal Medicine, [place] [address] [place] [address] Paulie Proctor MD [address] [place] [address] 07/10/2024 9:15 AM EDT Imaging Radiology [facility], [place] [address] [place] [address] 08/10/2024 8:00 AM EDT Imaging Maternal Medicine Imaging, Scott Adams [address] [place] [phone] 09/07/2024 8:00 AM EST Imaging Maternal Medicine Imaging, [facility] [address] [place] [address] Scheduled Orders Name Type Priority Associated Diagnoses [...]
--- OUTSIDE RECORDS SUMMARY | 2024-09-20 22:30 | External Medical Summary | Summary of Care ---
Author Name Unknown Organization [facility] Address [address] [facility] [place] [address] Phone [phone] Care Team Providers Care Cloth Opener Hand Name Role Phone Unavailable Primary Care Provider Unavailabl e Reason for Visit * Reason Comments Outpatient Testing Encounter Details Date Type Department Care Team (Late st Contact Info) Description 04/11/2024 8:30 AM EDT Laboratory Laboratory, [facility] 132 [facility] [place] [phone] [employer] [facility] [address] Abnormal GTT (glucose tolerance test) Allergies No [...] scheduled between 39-40 weeks gestation. As per [employer]'s 2010 practice [...] money to get more. Never true 02/10/2024 [place] Depression Scale Answer Date Recorded [place] Depression Scale Total 3 02/28/2024 The thought [...] Team (Late st Contact Info) Description 04/11/2024 12:10 PM EDT Laboratory Laboratory, [facility] [address] [facility] [place] [phone] [facility] [address] [place] [address] Arrived 04/28/2024 9:00 AM EDT Office Visit Gynecology/Obstetrics [facility] [address] [facility] [place] [address] Sheridan Lord PA-C [address] [facility] [place] [address] 05/15/2024 9:30 AM EDT Office Visit Ecological Technical Officer Obstetrics Maternal Medicine, [place] [address] [place] [address] Paulie Proctor MD [address] [place] [address] 05/15/2024 9:30 AM EDT Imaging Radiology [place] [address] [place], [place] [phone] Pending Results Name Type Priority Associated Diagnoses Date /Time GESTATIONAL GLUCOSE TOLERANCE, 3 HOUR Lab Routine Abnormal GTT (glucose tolerance test) 04/11/2024 8:47 AM EDT 100-G GESTATIONAL GLUCOSE, 1 HOUR Lab Routine Abnormal GTT (glucose tolerance test) 04/11/2024 9:52 AM EDT 100-G GESTATIONAL GLUCOSE, 2 HOUR Lab Routine Abnormal GTT (glucose tolerance test) 04/11/2024 10:51 AM EDT 100-G GESTATIONAL GLUCOSE, 3 HOUR Lab Routine Abnormal GTT (glucose tolerance test) 04/11/2024 12:06 PM EDT Health Maintenance Due Date Last Done Comments Depression Monitoring 2007 DTaP,Tdap,and Td Vaccines (1 - Tdap) 2014 Hepatitis B (1 of 3 - 19+ 3- dose series) 2014 COVID-19 Vaccine (1 - 2022-2 [...] 94 mg/dL 04/11/2024 10:27 AM EDT LABORATORY [place] 57-10 Blood Venous blood specimen / Unknown Venipuncture / Unknown 04/11/2024 8:47 AM EDT 04/11/2024 8:47 AM EDT Narrative LABORATORY [place] 57-10 - 04/11/2024 10:27 AM EDT Based [...] BLOOD ORDERABLES LABORATORY [place] 57-10 132 [facility] [place] [address] documented in this encounter Visit Diagnoses Diagnosis Abnormal GTT (glucose tolerance test) Impaired glucose tolerance test documented in this encounter
--- OUTSIDE RECORDS SUMMARY | 2024-09-20 22:30 | External Medical Summary | Summary of Care ---
Author Name Unknown Organization [facility] Address [address] [facility] [place] [address] Phone [phone] Care Team Providers Care Record Tester Name Role Phone Unavailable Primary Care Provider Unavailabl e Reason for Visit * Reason Comments Outpatient Testing Encounter Details Date Type Department Care Team (Late st Contact Info) Description 04/11/2024 8:30 AM EDT Laboratory Laboratory, [facility] 132 [facility] [place] [phone] [facility] 132 [facility] [address] Abnormal GTT (glucose tolerance test) Allergies No [...] scheduled between 39-40 weeks gestation. As per [employer]'s 2010 practice [...] money to get more. Never true 02/10/2024 [place] Depression Scale Answer Date Recorded [place] Depression Scale Total 3 02/28/2024 The thought [...] 04/28/2024 9:00 AM EDT Office Visit Gynecology/Obstetrics [facility] [address] [place] [address] Sheridan Lord PA-C [address] [place] [address] 05/15/2024 9:30 AM EDT Office Visit Accounts Receivable Analyst Obstetrics Maternal Medicine, [place] [address] [place] [address] Paulie Proctor MD [address] [place] [address] 05/15/2024 9:30 AM EDT Imaging Radiology [place] [address] [place], [place] [phone] Pending Results Name Type Priority Associated Diagnoses [...] BLOOD ORDERABLES LABORATORY [place] 57-10 132 [facility] [place] [address] documented in this encounter Visit Diagnoses Diagnosis Abnormal GTT (glucose tolerance test) Impaired glucose tolerance test documented in this encounter
--- OUTSIDE RECORDS SUMMARY | 2024-09-20 22:30 | External Medical Summary | Summary of Care ---
Author Name Unknown Organization [facility] Address [address] [facility] [address] Phone [phone] Care Team Providers Care Local Tanker Truck Driver Name Role Phone Unavailable Primary Care Provider Unavailabl e Reason for Visit * Reason Comments Outpatient Testing Encounter Details Date Type Department Care Team (Late st Contact Info) Description 04/11/2024 12:10 PM EDT Laboratory Laboratory, [facility] 132 [place] [phone] [facility] 132 [place] [address] Arrived Allergies No known active allergiesdocumented as of [...] 03:27 PM PROTEIN/ CREATININE RATIO, URINE - KERAER 74 02/28/2024 03:32 PM Last Assessment & [...] scheduled between 39-40 weeks gestation. As per [employer]'s 2010 practice [...] money to get more. Never true 02/10/2024 [place] Depression Scale Answer Date Recorded [place] Depression Scale Total 3 02/28/2024 The thought [...] 04/28/2024 9:00 AM EDT Office Visit Gynecology/Obstetrics [facility] [address] [place] [address] Sheridan Lord PA-C [address] [place] [address] 05/15/2024 9:30 AM EDT Office Visit Welder Pipe Making [facility] [address] [place], [place] [phone] Paulie Proctor MD [address] [place], [place] [phone] 05/15/2024 9:30 AM EDT Imaging Radiology [facility] [address] [place] [address] Health Maintenance Due Date Last Done Comments [...]
--- OUTSIDE RECORDS SUMMARY | 2024-09-20 22:30 | External Medical Summary | Summary of Care ---
Author Name Unknown Organization [facility] Address [address] [facility] [address] Phone [phone] Care Team Providers Care Carbon Coater Machine Operator Name Role Phone Unavailable Primary Care Provider Unavailabl e Reason for Visit * Reason Comments Return Visit Encounter Details Date Type Department Care Team (Late st Contact Info) Description 05/26/2024 8:45 AM EDT Office Visit Gynecology/Obstetric s Reggie Adams [address] [place] [address] Larisa Bartlett CRNP [address] [place] [address] Supervision of other normal , antepartum*; Depression complicating , antepartum; History of gestational hypertension; History of section complicating ; Obesity in , antepartum; Abnormal GTT (glucose tolerance test) Allergies No known active allergiesdocumented as of this encounter (statuses as of 05/26/2024) Medications Medication Sig Dispensed Refills Start Date [...] as of this encounter (statuses as of 05/26/2024) Active Problems Problem Noted Date Diagnosed Date [...] scheduled between 39-40 weeks gestation. As per [employer]'s 2010 practice [...] as of this encounter (statuses as of 05/26/2024) Resolved Problems Problem Noted Date Diagnosed Date Resolved Date with 10 completed weeks gestation 03/07/2024 05/25/2024 History of positive PPD 02/29/202404/2024 Supervision of high risk pre gnancy in first trimester 02/29/2024 05/25/2024 documented as of this encounter (statuses as of 05/26/2024) Social History Tobacco Use Types Packs/Day Years [...] money to get more. Never true 04/14/2024 [place] Depression Scale Answer Date Recorded [place] Depression Scale Total 3 02/28/2024 The thought [...] Sign Reading Time Taken Comments Blood Pressure 118/72 05/26/2024 9:24 AM EDT Pulse - - Temperature - - Respiratory Rate - - Oxygen Saturation - - Inhaled Oxygen Concentration - - Weight 97.5 kg (215 lb) 05/26/2024 9:24 AM EDT Height 160 cm (5' 3") 05/26/2024 9:24 AM EDT Body Mass Index 38.09 05/26/2024 9:24 AM EDT documented in this encounter Progress Notes * Larisa Bartlett CRNP - 05/26/2024 9:28 AM EDT 22w0d Feeling baby move "all the time". Had some increased cramping, slight orange color with wiping x2 days. No bladder symptoms, roxanne blood, or LOF. None noted today. No previa/low lying placenta on u/s. States she hasn't been drinking as much water lately. Encouraged to push fluids; call if cramping worsens, or if she has any bleeding. Declines MSAFP. Followed by MFM. Discussed labs at next visit, including 3 hr GTT. Fast prior and bring a snack for after testing. 4 week return NEYDA Montero * Sheela Velasquez LPN - 05/26/2024 9:25 AM EDT 22w0d Denies any concerns documented in this encounter Plan of Treatment Upcoming Encounters Date Type Department Care Team (Late st Contact Info) Description 06/15/2024 8:00 AM EDT Imaging Maternal Medicine Imaging, Scott Adams [address] [place] [phone] 06/23/2024 9:00 AM EDT Laboratory [facility] [address] [place] [phone] Reza Adams [address] [place] [address] 06/23/2024 1:30 PM EDT Office Visit Gynecology/Obstetrics Reggie Canaless [address] [place] [address] Larisa Bartlett CRNP 132 [facility] [place] [address] 07/10/2024 9:15 AM EDT Office Visit Personal Protection Specialist Obstetrics Maternal Medicine, [place] [address] [place] [address] Paulie Proctor MD [address] [place] [address] 07/10/2024 9:15 AM EDT Imaging Radiology [facility], [place] [address] [place] [address] 08/10/2024 8:00 AM EDT Imaging Maternal Medicine Imaging, [facility] [address] [place] [address] 09/07/2024 8:00 AM EST Imaging Maternal Medicine Imaging, [facility] [address] [place] [address] Scheduled Orders Name Type Priority Associated Diagnoses Orde r Schedule CBC WITH WBC DIFFERENTIAL AND ANEMIA REFLEX WORKUP Lab Routine Supervision of other normal , antepartum Expected: 06/23/2024 (Approximate), Expires: 05/26/2025 GESTATIONAL GLUCOSE TOLERANCE, 3 HOUR Lab Routine Supervision of other normal , antepartum Abnormal GTT (glucose tolerance test) Expected: 06/23/2024 (Approximate), Expires: 05/26/2025 SYPHILIS ANTIBODY SCREEN WITH REFLEX TO RPR Lab Routine Supervision of other normal , antepartum Expected: 06/23/2024 (Approximate), Expires: 05/26/2025 Health Maintenance Due Date Last Done Comments [...]
--- OUTSIDE RECORDS SUMMARY | 2024-09-20 22:30 | External Medical Summary | Summary of Care ---
Author Name Unknown Organization [facility] Address [address] [place] [address] Phone [phone] Care Team Providers Care Concrete Pouring Supervisor Name Role Phone Unavailable Primary Care Provider Unavailabl e Encounter Details Date Type Department Care Team (Late st Contact Info) Description 06/15/2024 8:00 AM EDT Office Visit Armorer Technician Obstetrics Maternal Medicine, [address] [place] [address] Lacey Weaver, DO [address] [place], [place] [phone] Obesity in , antepartum*; 24 weeks gestation [...] scheduled between 39-40 weeks gestation. As per [employer]'s 2010 practice [...] money to get more. Never true 04/14/2024 [place] Depression Scale Answer Date Recorded [place] Depression Scale Total 3 02/28/2024 The thought [...] No 04/14/2024 Does the household have a [facility] source of income? (Household - for [...] Description 06/23/2024 9:00 AM EDT Laboratory [facility], [facility] [address] [place] [phone] Reza Adams [address] [place] [address] 06/23/2024 1:30 PM EDT Office [facility] Andrea [address] [place] [address] BackerLarisa CRNP [address] [place] [address] 07/13/2024 8:45 AM EDT Office Visit Armorer Technician Obstetrics Maternal Medicine, [place] [address] [place] [address] Paulie Proctor MD [address] [place] [address] 07/13/2024 8:45 AM EDT Imaging Maternal Medicine Imaging, [place] [address] [place] [phone] 08/10/2024 8:00 AM EDT Imaging Maternal Medicine Imaging, Scott Adams [address] [place] [phone] 09/07/2024 8:00 AM EST Imaging Maternal Medicine Imaging, Scott Mendez [address] [place] [phone] Health Maintenance Due Date Last Done Comments [...]
--- OUTSIDE RECORDS SUMMARY | 2024-09-20 22:30 | External Medical Summary ---
Author Name Unknown Address Unknown Organization K01:LABORATORY [facility] - [address] [place] [address] Laboratory Report Ordering Provider Test Date Status MARIANO BANUELOS 04/11/2024 09:52:46 Final Observation Date Value Abnormality Reference (Units ) Status Glucose [Mass/volume] in Serum or Plasma --1 hour post dose glucose 04/11/2024 09:52:46 182 Above high normal 70-179 (mg/dL) Final Performing Location LABORATORY [facility] - [address] [place] [address]
--- OUTSIDE RECORDS SUMMARY | 2024-09-20 22:30 | External Medical Summary ---
Author Name Unknown Address Unknown Organization K01:LAB[facility]ATORY [facility] - [address] [facility] [address] [place] [address] Laboratory Report Ordering Provider Test Date Status AUGUSTUS CARDENAS 07/06/2024 09:00:44 Final Observation Date Value Abnormality Reference (Units ) Status Retic, % (auto) 07/06/2024 09:00:44 2.60 Above high normal 0.80-1.90 (%) Final Reticulocytes, Absolute 07/06/2024 09:00:44 102.4 Above high normal 31.3-100.1 (K/uL) Final Reticulocyte fraction, immature 07/06/2024 09:00:44 32.4 Above high normal 2.5-20.6 (%) Final Reticulocyte HGB 07/06/2024 09:00:44 29.1 Below low normal 29.7-37.4 (pg) Final Performing Location LABORATORY [facility] - [address] [facility] [address]
--- OUTSIDE RECORDS SUMMARY | 2024-09-20 22:30 | External Medical Summary ---
Author Name Unknown Address Unknown Organization K0G:LAB[facility]ATORY [place] 57-10 - [address] [place] [address] Laboratory Report Ordering Provider Test Date Status MARIANO BANUELOS 04/11/2024 10:51:37 Final Observation Date Value Abnormality Reference (Units ) Status Glucose, 2-hr post glucose challenge 04/11/2024 10:51:37 94 70-154 (mg/dL) Final Performing Location LAB[facility]ATORY [facility] [place] [facility]-1 0 - [address] [place] [address]
--- OUTSIDE RECORDS SUMMARY | 2024-09-20 22:30 | External Medical Summary ---
Author Name Unknown Address Unknown Organization K01:[facility]ATORY [facility] [place] [address] [place] [address] Laboratory Report Ordering Provider Test Date Status AUGUSTUS CARDENAS 07/06/2024 09:00:44 Final Observation Date Value Abnormality Reference (Units ) Status Creatinine 07/06/2024 09:00:44 0.6 0.5-1.0 (mg/dL) Final Glomerular filtration rate/1.73 sq M.predicted [Volume Rate/Area] in Serum, Plasma or Blood by Creatinine-based formula (CKD-EPI) 07/06/2024 09:00:44 >90 >=60 (mL/min) Final eGFR is calculated based on the CKD-EPI 2020 equation. Performing Location LABORATORY [facility] - [address] [place] [address]
--- OUTSIDE RECORDS SUMMARY | 2024-09-20 22:31 | External Medical Summary | Summary of Care ---
Author Name Unknown Organization [facility] Address [address] [facility] [place] [address] Phone [phone] Care Team Providers Care Bend Up Name Role Phone Unavailable Primary Care Provider Unavailabl e Encounter Details Date Type Department Care Team (Late st Contact Info) Description 03/31/2024 Telephone Gynecology/Obstetrics [facility] 132 [facility] [place] [address] Pema Mantilla, [facility] [address] Allergies No known active allergiesdocumented as of this encounter (statuses as of 03/31/2024) Medications Medication Sig Dispensed Refills Start Date [...] as of this encounter (statuses as of 03/31/2024) Active Problems Problem Noted Date Diagnosed Date Supervision of other normal , antepartu m [...] scheduled between 39-40 weeks gestation. As per [employer]'s 2010 practice [...] as of this encounter (statuses as of 03/31/2024) Resolved Problems Problem Noted Date Diagnosed Date Resolved Date History of positive PPD 02/29/2024 05/0 04/2024 documented as of this encounter (statuses as of 03/31/2024) Social History Tobacco Use Types Packs/Day Years [...] money to get more. Never true 02/10/2024 [place] Depression Scale Answer Date Recorded [place] Depression Scale Total 3 02/28/2024 The thought of harming myself has occurred to me . Never 02/28/2024 Estimated Date of Delivery Comme nts Yes [...] encounter Miscellaneous Notes * Telephone Encounter - Jessica Bell RN - 03/31/2024 2:09 PM EDT Attempted to call patient. No answer. LVM to return call * Telephone Encounter - Jessica Bell RN - 03/31/2024 2:08 PM EDT ----- Message from Pema Mantilla sent at 03/31/2024 1:59 PM EDT ----- Please let patient know she did not pass her 1 hour GTT; please assist with scheduling 3 hour GTT. Thanks! documented in this encounter Plan of Treatment Upcoming Encounters Date Type Department Care Team (Late st Contact Info) Description 04/28/2024 9:00 AM EDT Office Visit Gynecology/Obstetrics Reggie Adams 132 [place] [address] Sheridan Lord PA-C 132 [place] [address] 05/15/2024 9:30 AM EDT Office Visit Water Pump Assembler Obstetrics Maternal Medicine, [place] [address] [place] [address] Paulie Proctor MD [address] [place] [address] 05/15/2024 9:30 AM EDT [facility] [place] [address] [place] [address] Health Maintenance Due Date Last Done Comments DTaP,Tdap,and Td Vaccines (1 - Tdap) 2014 [...]
--- OUTSIDE RECORDS SUMMARY | 2024-09-20 22:31 | External Medical Summary | Summary of Care ---
Author Name Unknown Organization [facility] Address [address] [facility] [place] [address] Phone [phone] Care Team Providers Care Gas Main Fitter Name Role Phone Unavailable Primary Care Provider Unavailabl e Encounter Details Date Type Department Care Team (Late st Contact Info) Description 03/31/2024 Telephone Gynecology/Obstetrics [facility] 132 [facility] [place] [address] Pema Mantilla, [facility] 400 [facility] [address] Allergies No known active allergiesdocumented [...] scheduled between 39-40 weeks gestation. As per [employer]'s 2010 practice [...] money to get more. Never true 02/10/2024 [place] Depression Scale Answer Date Recorded [place] Depression Scale Total 3 02/28/2024 The thought [...] Visit Gynecology/Obstetrics Reggie Adams 132 [place] [address] Sheridan Lord PA-C 132 [place] [address] 05/15/2024 9:30 AM EDT Office Visit Occ Therapist Obstetrics Maternal Medicine, [place] [address] [place] [address] Paulie Proctor MD [address] [place] [address] 05/15/2024 9:30 AM EDT Imaging Radiology [facility], [place] [address] [place] [address] Health Maintenance Due Date Last Done Comments [...]
--- OUTSIDE RECORDS SUMMARY | 2024-09-20 22:31 | External Medical Summary | Summary of Care ---
Author Name Unknown Organization [facility] Address [address] [facility] [place] [address] Phone [phone] Care Team Providers Care Radiological Defense Officer Name Role Phone Unavailable Primary Care Provider Unavailabl e Reason for Visit * Reason Comments Outpatient Testing Encounter Details Date Type Department Care Team (Late st Contact Info) Description 03/30/2024 9:30 AM EDT Laboratory Laboratory, [facility] 132 [facility] [place] [phone] [facility] 132 [facility] [place] [address] Encounter for supervision of normal first in first trimester Allergies No known active allergiesdocumented as of this encounter (statuses as of 03/30/2024) Medications Medication Sig Dispensed Refills Start Date [...] as of this encounter (statuses as of 03/30/2024) Active Problems Problem Noted Date Diagnosed Date [...] clinically indicated. Supervision of high risk in [facility] trim mary kate 02/29/2024 History of gestational [...] scheduled between 39-40 weeks gestation. As per [employer]'s 2010 practice [...] as of this encounter (statuses as of 03/30/2024) Resolved Problems Problem Noted Date Diagnosed Date Resolved Date History of positive PPD 02/29/2024 05/0 04/2024 documented as of this encounter (statuses as of 03/30/2024) Social History Tobacco Use Types Packs/Day Years [...] money to get more. Never true 02/10/2024 [place] Depression Scale Answer Date Recorded [place] Depression Scale Total 3 02/28/2024 The thought [...] Description 05/15/2024 9:30 AM EDT Office Visit Pipe Stem Repairer Obstetrics Maternal Medicine, [place] [address] [place] [address] Paulie Proctor MD [address] [place] [address] 05/15/2024 9:30 AM EDT [facility] [place] [address] [place] [address] Pending Results Name Type Priority Associated Diagnoses Date /Time 50-G GESTATIONAL GLUCOSE, 1 HOUR Lab Routine Encounter for supervision of normal first in first trimester 03/30/2024 10:12 AM EDT Health Maintenance Due Date Last Done [...] as of this encounter Visit Diagnoses Diagnosis Encounter for supervision of normal first in first trimester Supervision of normal first documented in this encounter
--- OUTSIDE RECORDS SUMMARY | 2024-09-20 22:31 | External Medical Summary | Summary of Care ---
Author Name Unknown Organization [facility] Address [address] [facility] [place] [address] Phone [phone] Care Team Providers Care Supervisor Filter Assembly Name Role Phone Unavailable Primary Care Provider Unavailabl e Encounter Details Date Type Department Care Team (Late st Contact Info) Description 04/03/2024 Telephone Gynecology/Obstetrics [facility] [address] [facility] [place] [address] Pema Mantilla, [facility] [address] Allergies No known active allergiesdocumented as of this encounter (statuses as of 04/07/2024) Medications Medication Sig Dispensed Refills Start Date [...] as of this encounter (statuses as of 04/07/2024) Active Problems Problem Noted Date Diagnosed Date [...] clinically indicated. Supervision of high risk in [facility] 02/29/2024 History of gestational hypertension 02/29/2024 Overview: [...] as of this encounter (statuses as of 04/07/2024) Resolved Problems Problem Noted Date Diagnosed Date Resolved Date History of positive PPD 02/29/2024 05/0 04/2024 documented as of this encounter (statuses as of 04/07/2024) Social History Tobacco Use Types Packs/Day Years [...] money to get more. Never true 02/10/2024 [place] Depression Scale Answer Date Recorded [place] Depression Scale Total 3 02/28/2024 The thought [...] encounter Miscellaneous Notes * Telephone Encounter - Patricia Sheppard OSA - 04/07/2024 8:50 AM EDT Called and scheduled patient * Telephone Encounter - Iqra Lopez LPN - 04/07/2024 8:40 AM EDT Patient is aware of need for 3 hour, please call her to get this scheduled * Telephone Encounter - Jessica Bell RN - 04/03/2024 12:17 PM EDT Attempted to call patient. No answer , LVM to return call. * Telephone Encounter - Iqra Lopez LPN - 04/03/2024 8:23 AM EDT ----- Message from Pema Mantilla sent at 04/01/2024 11:48 AM EDT ----- Please make sure patient is scheduled for 3 hour GTT. Order placed. Thanks! Pema Mantilla CNM documented in this encounter Plan of Treatment Upcoming Encounters Date Type Department Care Team (Late st Contact Info) Description 04/14/2024 8:30 AM EDT Laboratory Laboratory, [facility] [address] [place] [address] [facility] [address] [address] 04/28/2024 9:00 AM EDT Office Visit Gynecology/Obstetrics [facility] [address] [place] [place] [address] Sheridan Lord PA-C [address] [place] [address] 05/15/2024 9:30 AM EDT Office Visit Entertainment Director Obstetrics [facility], [place] [address] [place] [address] Paulie Proctor MD [address] [place] [address] 05/15/2024 9:30 AM EDT Imaging Radiology [facility] [address], [place] [phone] Health Maintenance Due Date Last Done Comments [...]
--- OUTSIDE RECORDS SUMMARY | 2024-09-20 22:31 | External Medical Summary | Summary of Care ---
Author Name Unknown Organization [facility] Address [address] [facility] [place] [address] Phone [phone] Care Team Providers Care Derivatives Trader Name Role Phone Unavailable Primary Care Provider Unavailabl e Encounter Details Date Type Department Care Team (Late st Contact Info) Description 04/01/2024 Orders Only Laboratory, [facility] 132 [facility] [place] [address] Pema Mantilla, [facility] [address] [facility] [address] Abnormal GTT (glucose tolerance test)* Allergies No known active allergiesdocumented as of this encounter (statuses as of 04/01/2024) Medications Medication Sig Dispensed Refills Start Date [...] as of this encounter (statuses as of 04/01/2024) Active Problems Problem Noted Date Diagnosed Date [...] scheduled between 39-40 weeks gestation. As per [employer] [place] [employer]'s 2010 [...] as of this encounter (statuses as of 04/01/2024) Resolved Problems Problem Noted Date Diagnosed Date Resolved Date History of positive PPD 02/29/2024 050 04/2024 documented as of this encounter (statuses as of 04/01/2024) Social History Tobacco Use Types Packs/Day Years [...] money to get more. Never true 02/10/2024 [place] Depression Scale Answer Date Recorded [place] Depression Scale Total 3 02/28/2024 The thought [...] 04/28/2024 9:00 AM EDT Office Visit Gynecology/Obstetrics [facility] [address] [place] [address] Sheridan Lord PA-C [address] [place] [address] 05/15/2024 9:30 AM EDT Office Visit Side Seam Machine Operator Obstetrics [facility]aternal [facility], [place] [address] [place] [address] Paulie Proctor MD [address], [place] [phone] 05/15/2024 9:30 AM EDT Imaging Radiology [facility] [address], [place] [phone] Scheduled Orders Name Type Priority Associated Diagnoses Orde r Schedule GESTATIONAL GLUCOSE TOLERANCE, 3 HOUR Lab Routine Abnormal GTT (glucose tolerance test) Expected: 04/01/2024, Expires: 04/01/2025 Health Maintenance Due Date Last Done Comments [...] as of this encounter Visit Diagnoses Diagnosis Abnormal GTT (glucose tolerance test)- Primary Impaired glucose tolerance test documented in this encounter
--- OUTSIDE RECORDS SUMMARY | 2024-09-20 22:31 | External Medical Summary ---
Author Name Unknown Address Unknown Organization [facility] [address] [place] [id number] Laboratory Report Ordering Provider Test Date Status MARIANO BANUELOS 03/30/2024 10:12:45 Final Observation Date Value Abnormality Reference (Units ) Status Glucose [Moles/volume] in Serum or Plasma --1 hour post 50 g glucose PO 03/30/2024 10:12:45 147 Above high normal 70-129 (mg/dL) Final Performing Location [facility] [address] [place] [id number]
--- OUTSIDE RECORDS SUMMARY | 2024-09-20 22:31 | External Medical Summary | Summary of Care ---
Author Name Unknown Organization [facility] Address [address] [place] [address] Phone [phone] Care Team Providers Care Grand Scribe Name Role Phone Unavailable Primary Care Provider Unavailabl e Encounter Details Date Type Department Care Team (Late st Contact Info) Description 04/03/2024 Telephone Gynecology/Obstetrics [facility] 132 [facility] [place] [phone] Pema Mantilla, [facility] [address] [facility] [address] Allergies No known active allergiesdocumented as of this encounter (statuses as of 04/03/2024) Medications Medication Sig Dispensed Refills Start Date [...] as of this encounter (statuses as of 04/03/2024) Active Problems Problem Noted Date Diagnosed Date [...] clinically indicated. Supervision of high risk in [facility] 02/29/2024 History of gestational hypertension 02/29/2024 [...] scheduled between 39-40 weeks gestation. As per [employer]'s 2010 practice [...] as of this encounter (statuses as of 04/03/2024) Resolved Problems Problem Noted Date Diagnosed Date Resolved Date History of positive PPD 02/29/2024 05/0 04/2024 documented as of this encounter (statuses as of 04/03/2024) Social History Tobacco Use Types Packs/Day Years [...] money to get more. Never true 02/10/2024 [place] Depression Scale Answer Date Recorded [place] Depression Scale Total 3 02/28/2024 The thought [...] 04/28/2024 9:00 AM EDT Office Visit Gynecology/Obstetrics [address] [place] [address] Sheridan Lord PA-C [address] [place] [address] 05/15/2024 9:30 AM EDT Office Visit Radio Repair Teacher Obstetrics Maternal Medicine, [place] [address] [place] [address] Paulie Proctor MD [address] [place] [address] 05/15/2024 9:30 AM EDT Imaging Radiology [facility], [place] [address] [place], [place] [phone] Health Maintenance Due Date Last Done Comments [...]
--- OUTSIDE RECORDS SUMMARY | 2024-09-20 22:31 | External Medical Summary | Summary of Care ---
Author Name Unknown Organization [facility] Address [address] [facility] [place] [address] Phone [phone] Care Team Providers Care Bee Worker Name Role Phone Unavailable Primary Care Provider Unavailabl e Encounter Details Date Type Department Care Team (Late st Contact Info) Description 03/31/2024 Telephone Gynecology/Obstetrics [facility] 132 [facility] [place] [address] Pema Mantilla, [facility] [address] [facility] [address] Allergies No known active allergiesdocumented [...] scheduled between 39-40 weeks gestation. As per [employer] [employer]'s 2010 practice [...] money to get more. Never true 02/10/2024 [place] Depression Scale Answer Date Recorded [place] Depression Scale Total 3 02/28/2024 The thought [...] Telephone Encounter - Iqra Lopez LPN - 03/31/2024 4:30 PM EDT Patient notifed * Telephone Encounter - Jessica Bell RN [...] 04/28/2024 9:00 AM EDT [facility] [address] [place] [address] Sheridan Lord PA-C [address] [place] [address] 05/15/2024 9:30 AM EDT Office Visit Marketing Assistant Manager Obstetrics Maternal Medicine, [place] [address] [place] [address] Paulie Proctor MD [address] [place] [address] 05/15/2024 9:30 AM EDT Imaging Radiology [facility] [address] [place] [address] Health Maintenance Due Date Last Done Comments [...]
--- OUTSIDE RECORDS SUMMARY | 2024-09-20 22:31 | External Medical Summary ---
Author Name Unknown Address Unknown Organization [facility] [address] [place] [id number] Laboratory Report Ordering Provider Test Date Status MARIANO BANUELOS 04/11/2024 08:47:02 Final Based on ACOG guideline, ges tational [...] Abnormality Reference (Units ) Status Glucose, fasting 04/11/2024 08:47:02 91 70- 94 (mg/dL) Final Performing Location [facility] [address] [place] [id number]
--- OUTSIDE RECORDS SUMMARY | 2024-09-20 22:31 | External Medical Summary | Summary of Care ---
Author Name Unknown Organization [facility] Address [address] [facility] [place] [address] Phone [phone] Care Team Providers Care Office Support Assistant Name Role Phone Unavailable Primary Care Provider Unavailabl e Reason for Visit * Reason Comments Return Visit Encounter Details Date Type Department Care Team (Late st Contact Info) Description 03/30/2024 10:15 AM EDT Office Visit Gynecology/Obstetric s [facility] [address] [place] [address] Shanna Domingo CRNP [address] [place] [address] Encounter for supervision of other normal in second trimester*; Depression complicating , antepartum; History of gestational hypertension; Obesity in , antepartum Allergies No known [...] indicated. Supervision of high risk in [facility] 02/29/2024 History of gestational hypertension 02/29/2024 Overview: [...] scheduled between 39-40 weeks gestation. As per [employer]'s 2010 practice [...] Date Smoking Tobacco: Never Smokeless Tobacco: Never Tobacco Cessation:Counseling Given: Not Answered Alcohol Use Standard Drinks/Week Comments Not Currently [...] money to get more. Never true 02/10/2024 [place] Depression Scale Answer Date Recorded [place] Depression Scale Total 3 02/28/2024 The thought [...] Sign Reading Time Taken Comments Blood Pressure 112/68 03/30/2024 10:16 AM EDT Pulse - - Temperature - - Respiratory Rate - - Oxygen Saturation - - Inhaled Oxygen Concentration - - Weight 95.8 kg (211 lb 3.2 oz) 03/30/2024 10:16 AM EDT Height 160 cm (5' 3") 03/30/2024 10:16 AM EDT Body Mass Index 37.41 03/30/2024 10:16 AM EDT documented in this encounter Progress Notes * Shanna Domingo CRNP - 03/30/2024 10:27 AM EDT 13w6d No concerns. Some morning sickness continues, but improving. No bleeding. Met with M, recommended to start baby asprin. Hasn't done this yet, but will stop at the store today to purchase. Recommend she start taking this week. Low risk Qnatal having a girl. Early glucola today. NEYDA Meza documented in this encounter Nursing Notes * Jessica Bell, RN - 03/30/2024 10:18 AM EDT Patient here for NIDA 13w6d No concerns Doing early Glucola today Jessica Bell, RN documented in this encounter Plan of Treatment Upcoming Encounters Date Type Department Care Team (Late st Contact Info) Description 04/28/2024 9:00 AM EDT Office Visit Gynecology/Obstetrics [facility] [address] [place] [address] Sheridan Lord PA-C [address] [place] [address] 05/15/2024 9:30 AM EDT Office Visit Microbial Specialist Obstetrics Maternal Medicine, [place] [address] [place], [place] [phone] Paulie Proctor MD [address] [place] [address] 05/15/2024 9:30 AM EDT Imaging Radiology [facility] [address] [place], [place] [phone] Health Maintenance Due Date Last Done Comments [...] Visit Diagnoses Diagnosis Encounter for supervision of other normal in second trimester- Primary Depression complicating , antepartum Mental disorders of mother, antepartum History of gestational hypertension Obesity in , antepartum Obesity complicating , childbirth, or the puerperium, antepartum condition or complication documented in this encounter
--- OUTSIDE RECORDS SUMMARY | 2024-09-20 22:31 | External Medical Summary | Summary of Care ---
Author Name Unknown Organization [facility] Address [address] [place] [address] Phone [phone] Care Team Providers Care Rehab Services Aide Name Role Phone Unavailable Primary Care Provider Unavailabl e Encounter Details Date Type Department Care Team (Late st Contact Info) Description 04/03/2024 Telephone Gynecology/Obstetrics [facility] 132 [facility] [place] [address] Pema Mantilla, [facility] [address] [facility] [address] Allergies No known active allergiesdocumented [...] clinically indicated. Supervision of high risk in [facility] 02/29/2024 History of gestational hypertension 02/29/2024 Overview: [...] scheduled between 39-40 weeks gestation. As per [place] [employer]'s 2010 practice [...] money to get more. Never true 02/10/2024 [place] Depression Scale Answer Date Recorded [place] Depression Scale Total 3 02/28/2024 The thought [...] Description 04/14/2024 8:30 AM EDT Laboratory Laboratory, [facility] [address] [place] [address] [facility] [address] [facility] [place] [address] 04/28/2024 9:00 AM EDT Office Visit Gynecology/Obstetrics [facility] [address] [facility] [place] [address] Sheridan Lord PA-C [address] [place] [address] 05/15/2024 9:30 AM EDT Office Visit Lot Attendant Obstetrics Maternal Medicine, [place] [address] [place] [address] Paulie Proctor MD [address] [place] [address] 05/15/2024 9:30 AM EDT Imaging Radiology [facility] [address] [place], [place] [phone] Health Maintenance Due Date Last Done Comments [...]
--- OUTSIDE RECORDS SUMMARY | 2024-09-21 00:50 | External Medical Summary | Summary of Care ---
Author Name Unknown Organization [facility] Address [address] [facility] [place] [address] Phone [phone] Care Team Providers Care Bench Chemist Name Role Phone Unavailable Primary Care Provider Unavailabl e Reason for Visit * Reason Comments Return Visit Non Stress Test Encounter Details Date Type Department Care Team (Late st Contact Info) Description 09/20/2024 8:00 AM EST Office Visit Gynecology/Obstetric s Reggie Adams [address] [place] [address] Larisa Bartlett CRNP [address] [place] [address] [facility] 132 [facility] [place] [address] Supervision of other normal , antepartum*; Depression complicating , antepartum; History of gestational hypertension; History of section complicating ; Obesity in , antepartum; Antepartum anemia complicating Allergies No known active allergiesdocumented as of this encounter (statuses as of 09/20/2024) Medications Escitalopram Oxalate 5 MG Oral Tablet [...] as of this encounter (statuses as of 09/20/2024) Active Problems Problem Noted Date Diagnosed Date [...] scheduled between 39-40 weeks gestation. As per [employer] [employer]'s 2010 practice [...] as of this encounter (statuses as of 09/20/2024) Resolved Problems Problem Noted Date Diagnosed Date Resolved Date Abnormal GTT (glucose tolerance test) 04/01/2024 07/07/2024 Overview (04/01/2024): Failed 1 hour GTT at 13 weeks. 3 hour GTT ordered. with 10 completed weeks gestation 03/07/2024 05/25/2024 History of positive PPD 02/29/2024 05/0 04/2024 Supervision of high risk pre gnancy in first trimester 02/29/2024 05/25/2024 documented as of this encounter (statuses as of 09/20/2024) Immunizations Name Administration Dates Next Due TDAP, [...] money to get more. Never true 04/14/2024 [place] Depression Scale Answer Date Recorded [place] Depression Scale Total 1 08/23/2024 The thought [...] - Inhaled Oxygen Concentration - - Weight 108.9 kg (240 lb) 09/20/2024 8:07 AM EST Height - - Body Mass Index 42.51 08/25/2024 8:58 AM EDT documented in this encounter Progress Notes * Larisa Bartlett CRNP - 09/20/2024 8:16 AM EST 38w5d C/S is scheduled next week. Baby is active. No bleeding/leaking. Has had some painful ctx and period-like cramping for the pastfew hours. BP elevated; reports a BUSTILLO this morning. No new swelling or epigastric pain. Cervix 1 cm on exam. Spoke with Dr Lundberg pt to go to L&D now. Unit notified. Blister Packing Machine Tender Documentation Provider requested knot borer. Name of knot borer: Noreen ASSESSMENT assessment with Non-stress Test completed on 09/20/2024 at 38.5 weeks gestation for indication of obesity heart baseline: 140 bpm Variability: Moderate Decelerations: absent Accelerations: present Contractions: Present q2-4 mins NST start time: 0904 (time not changed to DST) NST stop time: 09 NST strip reviewed, interpreted, and approved by OB provider, NEYDA Montero . NST strip stored in clinic storage file documented in this encounter Plan of Treatment Upcoming Encounters Date Type Department Care Team (Late st Contact Info) Description 10/04/2024 10:30 AM EST Office Visit Gynecology/Obstetrics Reg[facility] [address] [place] [address] Larisa Bartlett CRNP [address] [place] [address] Health Maintenance Due Date Last Done Comments [...]
--- NOTE | 2024-09-21 05:16 | Obstetrical Progress Note ---
Date of Service September 21, 2024 Subjective Ambulation: limited ambulation Voiding: turcios catheter in place Passing Gas:: Yes Diet Tolerance:: regular diet Lochia:: Small Feeding Type:: breast feeding Current Pain Level(1-10): 0 BP well controlled now Physical Exam Constitutional WD/WN, vitals as above Gastrointestinal (Abdomen) Inspection/Auscultation: abdomen normal to inspection incisio c/d/i abdomen soft and non-tender fundus firm below U Musculoskeletal Extremities: extremities normal to inspection Skin no rashes, warm and dry Neurologic patellar DTR's 2+ bilat, sensation intact Psychiatric A+Ox3, euthymic affect Results & Data Vital Signs (Past 12 Hours) Vital Signs Temp Pulse Resp BP Pulse Ox 09/21/24 05:11 100 H 96 09/21/24 05:06 93 H 93 09/21/24 05:01 87 96 09/21/24 05:00 102 H 87 L 09/21/24 04:56 100 H 98 09/21/24 04:51 87 97 09/21/24 04:46 91 H 97 09/21/24 04:41 94 H 97 09/21/24 04:40 109 H 123/82 09/21/24 04:36 86 94 09/21/24 04:31 84 95 09/21/24 04:30 18 09/21/24 04:26 86 94 09/21/24 04:21 86 93 09/21/24 04:16 86 94 09/21/24 04:11 86 94 09/21/24 04:06 86 93 09/21/24 04:01 86 93 09/21/24 03:56 88 93 09/21/24 03:51 86 93 09/21/24 03:46 88 94 09/21/24 03:41 87 94 09/21/24 03:40 88 117/60 09/21/24 03:36 88 93 09/21/24 03:31 93 H 95 09/21/24 03:30 18 09/21/24 03:26 87 95 09/21/24 03:21 89 95 09/21/24 03:16 90 96 09/21/24 03:12 37.0 C 09/21/24 03:11 95 H 96 09/21/24 03:06 94 H 97 09/21/24 03:01 99 H 97 09/21/24 02:56 104 H 96 09/21/24 02:51 97 H 97 09/21/24 02:46 101 H 98 09/21/24 02:41 102 H 97 09/21/24 02:40 99 H 133/90 09/21/24 02:36 107 H 97 09/21/24 02:31 98 H 96 09/21/24 02:30 18 09/21/24 02:26 93 H 96 09/21/24 02:21 97 H 96 09/21/24 02:16 110 H 97 09/21/24 02:11 94 H 97 09/21/24 02:06 102 H 96 09/21/24 02:01 96 H 95 09/21/24 01:56 99 H 96 09/21/24 01:51 103 H 96 09/21/24 01:46 92 H 97 09/21/24 01:41 93 H 97 09/21/24 01:40 91 H 114/62 09/21/24 01:36 98 H 96 09/21/24 01:31 105 H 97 09/21/24 01:30 18 09/21/24 01:26 95 H 96 09/21/24 01:21 97 H 97 09/21/24 01:16 96 H 96 09/21/24 01:11 96 H 97 09/21/24 01:06 97 09/21/24 01:06 109 H 09/21/24 01:06 109 H 85 L 09/21/24 01:01 108 H 98 09/21/24 00:56 108 H 100 09/21/24 00:51 100 H 96 09/21/24 00:46 93 H 96 09/21/24 00:41 91 H 96 09/21/24 00:40 92 H 123/67 09/21/24 00:36 94 H 97 09/21/24 00:31 91 H 97 09/21/24 00:30 18 09/21/24 00:26 106 H 97 09/21/24 00:21 96 H 97 09/21/24 00:16 87 95 09/21/24 00:11 103 H 98 09/21/24 00:06 90 96 09/21/24 00:01 102 H 95 09/20/24 23:56 89 95 09/20/24 23:51 97 H 95 09/20/24 23:46 91 H 96 09/20/24 23:41 88 95 09/20/24 23:40 90 118/62 09/20/24 23:36 87 92 09/20/24 23:31 87 94 09/20/24 23:30 18 09/20/24 23:26 89 93 09/20/24 23:22 92 H 94 09/20/24 23:21 90 95 09/20/24 23:16 92 H 95 09/20/24 23:14 89 94 09/20/24 23:11 91 H 95 09/20/24 23:06 93 H 95 09/20/24 23:01 95 H 96 09/20/24 22:56 103 H 98 09/20/24 22:51 95 H 98 09/20/24 22:46 100 H 97 09/20/24 22:41 100 H 98 09/20/24 22:40 94 H 128/73 09/20/24 22:36 100 H 98 09/20/24 22:31 106 H 97 09/20/24 22:30 18 09/20/24 22:26 108 H 95 09/20/24 22:21 96 H 95 09/20/24 22:20 96 H 94 09/20/24 22:16 100 H 96 09/20/24 22:12 99 H 94 09/20/24 22:11 104 H 95 09/20/24 22:06 103 H 95 09/20/24 22:01 99 H 96 09/20/24 21:56 96 H 96 09/20/24 21:51 96 H 97 09/20/24 21:46 98 H 95 09/20/24 21:41 98 H 97 09/20/24 21:40 101 H 126/75 09/20/24 21:38 99 H 93 09/20/24 21:36 104 H 96 09/20/24 21:31 97 H 96 09/20/24 21:30 18 09/20/24 21:26 103 H 93 09/20/24 21:22 101 H 94 09/20/24 21:21 102 H 96 09/20/24 21:16 101 H 96 09/20/24 21:11 100 H 96 09/20/24 21:06 96 H 96 09/20/24 21:01 101 H 97 09/20/24 20:56 103 H 96 09/20/24 20:51 102 H 97 09/20/24 20:46 104 H 98 09/20/24 20:41 102 H 98 09/20/24 20:40 103 H 132/66 09/20/24 20:36 96 H 97 09/20/24 20:31 93 H 97 09/20/24 20:30 18 09/20/24 20:26 97 H 98 09/20/24 20:21 97 H 97 09/20/24 20:16 98 H 97 09/20/24 20:11 95 H 98 09/20/24 20:06 98 H 97 09/20/24 20:01 100 H 96 09/20/24 19:56 108 H 99 09/20/24 19:51 96 H 98 09/20/24 19:46 105 H 98 09/20/24 19:45 104 H 93 09/20/24 19:41 93 H 96 09/20/24 19:40 93 H 119/62 09/20/24 19:36 94 H 97 09/20/24 19:34 90 114/62 09/20/24 19:31 87 95 09/20/24 19:30 37.0 C 09/20/24 19:30 18 09/20/24 19:29 87 94 09/20/24 19:26 89 96 09/20/24 19:21 96 H 97 09/20/24 19:16 95 H 97 09/20/24 19:11 96 H 98 09/20/24 19:06 97 H 98 09/20/24 19:01 106 H 98 09/20/24 18:56 91 H 96 09/20/24 18:51 90 96 09/20/24 18:46 94 H 96 09/20/24 18:41 98 H 97 09/20/24 18:36 86 96 09/20/24 18:31 93 H 98 09/20/24 18:30 18 09/20/24 18:27 93 H 93 09/20/24 18:26 92 H 93 09/20/24 18:21 89 96 09/20/24 18:16 90 94 09/20/24 18:11 95 09/20/24 18:11 86 09/20/24 18:11 84 94 09/20/24 18:06 94 09/20/24 18:06 82 09/20/24 18:06 82 94 09/20/24 18:01 86 96 09/20/24 18:00 84 94 09/20/24 17:56 88 97 09/20/24 17:53 81 94 09/20/24 17:51 80 97 09/20/24 17:46 90 96 09/20/24 17:41 90 96 09/20/24 17:40 90 116/56 L 09/20/24 17:36 91 H 96 09/20/24 17:31 88 96 09/20/24 17:30 16 09/20/24 17:26 95 H 96 09/20/24 17:21 88 97 09/20/24 17:16 97 H 98 Laboratory Results 09/20/24 09/20/24 10:09 10:10 WBC 11.39 H RBC 4.34 Hgb 12.3 Hct 37.5 MCV 86.4 MCH 28.3 MCHC 32.8 RDW Std Deviation 46.8 H RDW Coeff of Yan 15.0 H Plt Count 244 MPV 10.6 Sodium 140 Potassium 4.0 Chloride 110 H Carbon Dioxide 20 L Anion Gap 10 BUN 8 Creatinine 0.62 Est Cr Clr Drug Dosing 154.7 eGFR 123.55 BUN/Creatinine Ratio 12.9 Glucose 89 Uric Acid 4.8 Calcium 9.0 Total Bilirubin 0.3 Direct Bilirubin 0.0 AST 15 ALT 10 Alkaline Phosphatase 119 H Lactate Dehydrogenase 169 Total Protein 6.5 Albumin 3.5 Globulin 3.0 Albumin/Globulin Ratio 1.2 Ur Random Creatinine 51.4 U Random Total Protein 5.4 Protein/Creatinin Ratio 0.1 Treponema pallidum Ab Negative Blood Type O Positive Antibody Screen NEGATIVE
[2024-09-21 06:43] LABS: Basophils # (auto) 0.02 K/uL (0.00-0.20); Basophils % (auto) 0.1 %; Eosinophils # (auto) 0.01 K/uL (0.00-0.50); Eosinophils % (auto) 0.1 %; Hematocrit (blood only) 29.8 % (37.0-47.0); Hemoglobin 9.7 g/dl (12.0-16.0); Immature Granulocytes # (auto) 0.08 K/uL (0.01-0.20); Immature Granulocytes % (auto) 0.5 %; Lymphocytes # (auto) 2.43 K/uL (1.20-3.40); Lymphocytes % (auto) 15.2 %; Mean Corpuscular Hemoglobin 28.9 pg (25.0-34.0); Mean Corpuscular Hgb Conc 32.6 g/dL (32.0-36.0); Mean Corpuscular Volume 88.7 fL (80.0-100.0); Mean Platelet Volume 10.6 fL (9.4-12.4); Monocytes % (auto) 6.3 %; Neutrophils # (auto) 12.41 K/uL (1.40-6.50); Neutrophils % (auto) 77.8 %; Platelet Count 222 K/uL (130-400); RDW Coefficient of Variation 15.2 % (11.5-14.5); RDW Standard Deviation 48.9 fL (36.4-46.3); Red Blood Count 3.36 M/uL (4.20-5.40); White Blood Count 15.95 K/ul (4.8-10.8)
[2024-09-21] MEDS: MoRPHine SULFATE PF 1 MG/ML 10 ML AMP/VIAL INT SPINAL ONE (07:33)
[2024-09-21] MEDS ORDERED: PROMETHAZINE 12.5 MG/50.5 ML BAG IV PRN (07:46)
[2024-09-21] MEDS ORDERED: diphenhydrAMINE 50 MG/ML VIAL IV PRN (07:46)
[2024-09-21] MEDS ORDERED: diphenhydrAMINE Capsule 25 MG CAP PO PRN (07:46)
[2024-09-21] MEDS: ESCITALOPRAM OXALATE 10 MG TAB PO SCH (07:54)
[2024-09-21] MEDS: CYANOCOBALAMIN (B-12) 500 MCG TABLET PO SCH (07:54)
[2024-09-21] MEDS: FERROUS SULFATE 325 MG TAB PO SCH (08:04)
[2024-09-21] MEDS: PRENATAL VITAMIN 1 TAB PO SCH ×2 (08:04→11:43)
[2024-09-21] MEDS: ONDANSETRON INJ 2 MG/ML 2 ML VIAL IV PRN (11:18)
[2024-09-21] MEDS ORDERED: KETOROLAC 30 MG/ML VIAL IV PRN (14:15)
[2024-09-21] MEDS: IBUPROFEN 600 MG TAB PO SCH (15:27)
[2024-09-21] MEDS: bisacodyL 5 MG TABEC PO SCH (20:58)
[2024-09-22 07:16] LABS: Basophils # (auto) 0.02 K/uL (0.00-0.20); Basophils % (auto) 0.2 %; Eosinophils # (auto) 0.06 K/uL (0.00-0.50); Eosinophils % (auto) 0.6 %; Hematocrit (blood only) 28.3 % (37.0-47.0); Immature Granulocytes # (auto) 0.06 K/uL (0.01-0.20); Immature Granulocytes % (auto) 0.6 %; Lymphocytes # (auto) 2.27 K/uL (1.20-3.40); Lymphocytes % (auto) 21.1 %; Mean Corpuscular Hemoglobin 28.5 pg (25.0-34.0); Mean Corpuscular Hgb Conc 31.8 g/dL (32.0-36.0); Mean Corpuscular Volume 89.6 fL (80.0-100.0); Monocytes # (auto) 0.76 K/uL (0.11-0.59); Monocytes % (auto) 7.1 %; Neutrophils # (auto) 7.61 K/uL (1.40-6.50); Neutrophils % (auto) 70.4 %; Platelet Count 216 K/uL (130-400); RDW Coefficient of Variation 15.6 % (11.5-14.5); RDW Standard Deviation 50.4 fL (36.4-46.3); Red Blood Count 3.16 M/uL (4.20-5.40); White Blood Count 10.78 K/ul (4.8-10.8)
[2024-09-22 07:24] LABS: Albumin Globulin Ratio 1.2 (0.9-2); BUN Creatinine Ratio 17.4 (10-20); Bilirubin,Total 0.2 mg/dl (0.2-1.0); Calcium 7.2 mg/dl (8.6-10.3); Globulin 2.5 gm/dl (2.5-4.0); Potassium 3.8 mmol/L (3.5-5.1); Total Protein 5.5 gm/dl (6.0-8.3)
[2024-09-22] MEDS: ASCORBIC ACID 500 MG TAB PO SCH (09:46)
--- NOTE | 2024-09-22 10:19 | Obstetrical Progress Note ---
Date of Service September 22, 2024 Assessment & Plan Admission and Anticipated Discharge Date Admission Date: September 20, 2024 Subjective Patient is seen and examined. She feels well, no complaints. Pain is under control with oral meds. Ambulating without dizziness Voiding without difficulty Tolerating regular diet with out N&V Flatus + BM NEG Bleeding is minimal No fever/ chills/ CP/ SOB/ N&V/ Leg pain Breast feeding without problems Vital Signs Temp Pulse Pulse Resp BP BP Pulse Ox 09/22/24 07:50 36.8 C 85 16 124/85 97 09/22/24 03:30 83 18 140/90 09/21/24 20:00 36.8 C 93 H 18 145/91 H 99 09/21/24 15:35 36.6 C 87 18 137/90 98 09/21/24 14:28 99 H 136/87 09/21/24 14:20 37.0 C 20 09/21/24 13:41 96 H 146/77 H 09/21/24 13:36 104 H 93 09/21/24 13:31 95 H 100 09/21/24 13:26 86 96 09/21/24 13:21 85 97 09/21/24 13:16 79 96 09/21/24 13:15 20 98 09/21/24 13:15 18 09/21/24 13:11 91 H 95 09/21/24 13:06 81 93 09/21/24 13:01 81 94 09/21/24 12:56 83 94 09/21/24 12:51 82 94 09/21/24 12:46 81 94 09/21/24 12:41 79 94 09/21/24 12:36 79 94 09/21/24 12:31 78 94 09/21/24 12:26 91 H 96 09/21/24 12:21 83 97 09/21/24 12:16 79 93 09/21/24 12:15 20 98 09/21/24 12:15 18 09/21/24 12:11 79 94 09/21/24 12:06 91 H 96 09/21/24 12:01 89 97 09/21/24 11:56 88 99 09/21/24 11:51 88 98 09/21/24 11:46 85 96 09/21/24 11:41 89 97 09/21/24 11:36 87 98 09/21/24 11:31 99 09/21/24 11:31 92 H 09/21/24 11:31 90 88 L 09/21/24 11:30 36.9 C 18 09/21/24 11:30 90 128/76 09/21/24 11:26 98 H 100 09/21/24 11:21 93 H 94 09/21/24 11:16 93 H 96 09/21/24 11:15 20 100 09/21/24 11:15 20 09/21/24 11:14 87 87 L 09/21/24 11:11 86 98 09/21/24 11:06 99 H 95 09/21/24 11:01 84 100 09/21/24 10:56 83 99 09/21/24 10:55 97 H 89 L 09/21/24 10:51 92 H 100 09/21/24 10:46 84 100 09/21/24 10:41 85 97 09/21/24 10:40 86 122/71 09/21/24 10:38 90 89 L 09/21/24 10:36 89 98 09/21/24 10:31 82 99 09/21/24 10:26 79 98 09/21/24 10:21 91 H 96 O2 Del Method 09/22/24 07:50 Room Air 09/22/24 03:30 09/21/24 20:00 Room Air 09/21/24 15:35 Room Air 09/21/24 14:28 09/21/24 14:20 09/21/24 13:41 09/21/24 13:36 09/21/24 13:31 09/21/24 13:26 09/21/24 13:21 09/21/24 13:16 09/21/24 13:15 09/21/24 13:15 09/21/24 13:11 09/21/24 13:06 09/21/24 13:01 09/21/24 12:56 09/21/24 12:51 09/21/24 12:46 09/21/24 12:41 09/21/24 12:36 09/21/24 12:31 09/21/24 12:26 09/21/24 12:21 09/21/24 12:16 09/21/24 12:15 09/21/24 12:15 09/21/24 12:11 09/21/24 12:06 09/21/24 12:01 09/21/24 11:56 09/21/24 11:51 09/21/24 11:46 09/21/24 11:41 09/21/24 11:36 09/21/24 11:31 09/21/24 11:31 09/21/24 11:31 09/21/24 11:30 09/21/24 11:30 09/21/24 11:26 09/21/24 11:21 09/21/24 11:16 09/21/24 11:15 09/21/24 11:15 09/21/24 11:14 09/21/24 11:11 09/21/24 11:06 09/21/24 11:01 09/21/24 10:56 09/21/24 10:55 09/21/24 10:51 09/21/24 10:46 09/21/24 10:41 09/21/24 10:40 09/21/24 10:38 09/21/24 10:36 09/21/24 10:31 09/21/24 10:26 09/21/24 10:21 Intake and Output 09/21/24 09/22/24 09/22/24 22:59 06:59 14:59 Output Total 300 / 3350 Balance -300 / -2914.166 Output: Urine 300 / 300 PE: General: Alert, orientedx3, NAD CVS: S1S2 RRR Lungs; CTAB Abd: soft, NT, ND, BS+, fundus firm, below Umbilicus Incision: Clean, dry, intact Perineum intact, Lochia rubra minimal Ext; NT, no edema AP: 29 yo s/p C Section, pod# 2, s/p IV Magnesium, BP's have been WNL VSS Afebrile doing well Continue routine postop care Encourage ambulation, PO intake All questions were answered Desires d/c this afternoon Discussed when to call D/C home , f/u in office Results & Data Vital Signs (Past 12 Hours) Vital Signs Temp Pulse Resp BP Pulse Ox O2 Del Method 09/22/24 07:50 36.8 C 85 16 124/85 97 Room Air 09/22/24 03:30 83 18 140/90
[2024-09-22] MEDS: oxyCODONE HCL IR 5 MG TAB (IMMEDIATE RELEASE) PO PRN (10:56)
[2024-09-22 13:31] VITALS: O2SAT 98
[2024-09-22] MEDS: LABETALOL HCL 100 MG TAB PO ONE (13:37)
[2024-09-22] MEDS ORDERED: bisacodyL 10 MG SUPP PR PRN (14:15)
--- NOTE | 2024-09-22 15:31 | Obstetrical Progress Note ---
Date of Service September 22, 2024 Assessment & Plan Admission and Anticipated Discharge Date Admission Date: September 20, 2024 Subjective Patient's BP's were elevated just before getting ready for d/c Asymptomatic Received Labetalol PO and now improved Plan to start Labetalol 100 mg bid and observe overnight and d/c in am Patient understands and agrees Results & Data Vital Signs (Past 12 Hours) Vital Signs Temp Pulse Resp BP Pulse Ox O2 Del Method 09/22/24 14:45 92 H 153/90 H 09/22/24 13:25 83 174/115 H 09/22/24 12:50 36.8 C 82 18 161/101 H 98 Room Air 09/22/24 10:37 36.8 C 85 16 124/85 97 09/22/24 07:50 36.8 C 85 16 124/85 97 Room Air
[2024-09-22] MEDS: IBUPROFEN 600 MG TAB PO PRN (16:38)
[2024-09-22] MEDS: LABETALOL HCL 100 MG TAB PO SCH (17:25)
[2024-09-22] MEDS: ACETAMINOPHEN 325 MG TAB PO PRN (22:01)
[2024-09-23] MEDS ORDERED: LABETALOL HCL 100 MG TAB PO SCH
[2024-09-23] MEDS ORDERED: NIFEdipine EXTENDED REL 30 MG TABCR PO SCH
[2024-09-23] MEDS ORDERED: ONDANSETRON 4 MG OD TAB PO PRN (02:55)
[2024-09-23] MEDS: LABETALOL HCL 100 MG TAB PO ONE (03:15)
--- NOTE | 2024-09-23 07:30 | Obstetrical Progress Note ---
Date of Service September 23, 2024 Assessment & Plan Admission and Anticipated Discharge Date Admission Date: September 20, 2024 Subjective Patient is seen and examined. She feels well,much better She was trying for BM earlier this morning when she could not and felt nauseous Her BP was high afterwards. She has went to [facility] and moved her bowels many times and now feels much better. Pain is under control with oral meds. Almost zero. Ambulating without dizziness Voiding without difficulty Tolerating regular diet with out N&V Bleeding is minimal No fever/ chills/ CP/ SOB/ N&V/ Leg pain Breast feeding without problems Vital Signs Temp Pulse Resp BP Pulse Ox O2 Del Method 09/23/24 03:08 164/102 H 09/23/24 02:11 180/117 H 09/22/24 23:15 160/92 H 09/22/24 20:18 37.2 C 92 H 137/80 Room Air 09/22/24 16:40 91 H 152/95 H 09/22/24 14:45 92 H 153/90 H 09/22/24 13:25 83 174/115 H 09/22/24 12:50 36.8 C 82 18 161/101 H 98 Room Air 09/22/24 10:37 36.8 C 85 16 124/85 97 09/22/24 07:50 36.8 C 85 16 124/85 97 Room Air PE: General: Alert, orientedx3, NAD CVS: S1S2 RRR Lungs; CTAB Abd: soft, NT, ND, BS+, fundus firm, below Umbilicus Incision: Clean, dry, intact Perineum intact, Lochia rubra minimal Ext; NT, no edema, DTR 1+/1+ AP: 29 yo s/p RC Section for preeclampsia with severe features, pod# 3, s/p IV magnesium, On labetalol , increased to q 8 hours, will add Procardia, Afebrile clinically doing well, no symptoms Continue to monitor Encourage ambulation, PO intake All questions were answered Reeat labs D/C home afternoon if BP stable on new dose Results & Data Vital Signs (Past 12 Hours) Vital Signs Temp Pulse BP O2 Del Method 09/23/24 03:08 164/102 H 09/23/24 02:11 180/117 H 09/22/24 23:15 160/92 H 09/22/24 20:18 37.2 C 92 H 137/80 Room Air
[2024-09-23] MEDS: LABETALOL HCL 100 MG TAB PO SCH (07:36)
[2024-09-23] MEDS: NIFEdipine EXTENDED REL 30 MG TABCR PO SCH (07:40)
[2024-09-23] MEDS: ONDANSETRON 4 MG OD TAB ONE (07:42)
[2024-09-23 07:58] LABS: Basophils # (auto) 0.02 K/uL (0.00-0.20); Basophils % (auto) 0.2 %; Eosinophils # (auto) 0.24 K/uL (0.00-0.50); Eosinophils % (auto) 1.9 %; Hematocrit (blood only) 31.7 % (37.0-47.0); Hemoglobin 10.1 g/dl (12.0-16.0); Immature Granulocytes # (auto) 0.07 K/uL (0.01-0.20); Immature Granulocytes % (auto) 0.6 %; Lymphocytes # (auto) 2.06 K/uL (1.20-3.40); Lymphocytes % (auto) 16.7 %; Mean Corpuscular Hemoglobin 28.1 pg (25.0-34.0); Mean Corpuscular Hgb Conc 31.9 g/dL (32.0-36.0); Mean Corpuscular Volume 88.3 fL (80.0-100.0); Mean Platelet Volume 10.1 fL (9.4-12.4); Monocytes # (auto) 0.67 K/uL (0.11-0.59); Monocytes % (auto) 5.4 %; Neutrophils # (auto) 9.29 K/uL (1.40-6.50); Neutrophils % (auto) 75.2 %; Platelet Count 281 K/uL (130-400); RDW Coefficient of Variation 15.8 % (11.5-14.5); RDW Standard Deviation 50.6 fL (36.4-46.3); Red Blood Count 3.59 M/uL (4.20-5.40); White Blood Count 12.35 K/ul (4.8-10.8)
[2024-09-23 08:04] LABS: Albumin Globulin Ratio 1.2 (0.9-2); Albumin Level 3.4 gm/dl (3.4-5.0); Bilirubin,Total 0.4 mg/dl (0.2-1.0); Calcium 8.3 mg/dl (8.6-10.3); Creatinine Clr Calc Pharmacy 165.3 ml/min; Globulin 2.8 gm/dl (2.5-4.0); Potassium 4.3 mmol/L (3.5-5.1); Total Protein 6.2 gm/dl (6.0-8.3)
--- NOTE | 2024-09-23 09:32 | Obstetrical Progress Note ---
Date of Service September 23, 2024 Assessment & Plan Admission and Anticipated Discharge Date Admission Date: September 20, 2024 Subjective patient has family history elevated blood pressure will control bp before discharge recent bp 145/93 Results & Data Vital Signs (Past 12 Hours) Vital Signs Temp Pulse Resp BP Pulse Ox O2 Del Method 09/23/24 07:35 37.4 C 97 H 20 160/107 H 98 Room Air 09/23/24 03:08 164/102 H 09/23/24 02:11 180/117 H 09/22/24 23:15 160/92 H
[2024-09-23 14:01] VITALS: RESP 20
[2024-09-23 16:36] VITALS: BP 146/98; PULSE 105; TEMP 98.2
--- NOTE | 2024-09-27 16:01 | Discharge Summary ---
Date of Service September 27, 2024 Admission HPI Per Admitting Provider [id number] F [id number] sent from the office with contractions and gestational hypertetnsion Discharge Data Consultations 09/20/24 09:55 Consult Anesthesiology Stat Procedures Performed Operation Date: 09/20/24 13:30 Actual Procedures p Section in LD for LFC @ on 09/20/24 with bilateral tubal ligation and removal(Bilateral) - Madhav Lundberg MD Hospital Course (1) Gestational hypertension affecting second : (2) History of section: Plan done without complications
== END 2024-09-23 18:10 | disposition home health service (06) | DRG 785 ==
LOC: OPB 09:00 → 4S1 09:21 → 4E2 09-21 15:35
DX: Z3A.38 38 weeks gestation of pregnancy; Z30.2 Encounter for sterilization; O34.211 Maternal care for low transverse scar from previous cesarean delivery; O69.81X0 Labor and delivery complicated by cord around neck, without compression, not applicable or unspecified; Z37.0 Single live birth; O14.14 Severe pre-eclampsia complicating childbirth